=== PATIENT | female | born 1995 | race Caucasian/White ===

== ENCOUNTER 2021-02-07 18:28 | Outpatient (CLI) | payer OTHER ==
--- NOTE | 2021-02-07 23:04 | XRAY Report ---
PROCEDURE: Elbow 3 View LT INDICATIONS: LEFT ELBOW PAIN STATUS post skateboarding injury TECHNIQUE: 3 views of the elbow were acquired. COMPARISON: None FINDINGS: Bones: Slightly depressed radial head fracture noted associated with joint effusion and elevated ante rior humeral fat pad. Normal bone mineralization. Soft tissues: No suspicious soft tissue calcifications. IMPRESSION: Slightly depressed radial head fracture with associated joint effusion Reviewed by: Migeul Zapata MD on 02/07/2021 10:03 PM [facility] Approved by: Miguel Zapata MD on 02/07/2021 10:03 PM [facility] Station ID: [id number]
== END 2021-02-07 23:59 ==
LOC: DI.N 18:28
PROVIDERS: ATTEND Nurse Practitioner
DX: S52.122A Displaced fracture of head of left radius, initial encounter for closed fracture (principal)

== ENCOUNTER 2021-02-11 17:13 | Emergency (ER) | payer OTHER ==
--- NOTE | 2021-02-11 17:36 | ED Physician Documentation ---
PD HPI UPPER EXT INJURY - Stated complaint Stated Complaint: LT ELBOW INJ - Chief complaint Chief Complaint: Ext Problem - History obtained from History obtained from: Patient - History of Present Illness Location: Left, Elbow Type of injury: Fall Timing - details: Gradual onset Pain level max: 7 Pain level now: 6 - Additonal information Additional information: 25-year-old female presents to the emergency department with left elbow pain. She states in December she fell off of a skateboard and sustained a radial head fracture. Initially was placed in a sling and told to follow-up with orthopedics. She states later that week she was admitted for complications of her diabetes and placed into a splint. She saw orthopedics after this and was removed from the splint and started to use the arm. She is still having pain so went to the walk-in clinic last week who placed her back in a splint. She states continued pain today and unable to see orthopedics here. Patient is right-handed Review of Systems Constitutional: denies: Fever, Chills Respiratory: denies: Cough GI: denies: Nausea, Vomiting, Diarrhea Skin: denies: Rash Musculoskeletal: denies: Neck pain, Back pain Neurologic: denies: Headache PD PAST MEDICAL HISTORY - Past Medical History Past Medical History: Yes - Past Surgical History Past Surgical History: No - Present Medications Home Medications: Ambulatory Orders Medication Instructions Recorded Confirmed Oxycodone HCl/Acetaminophen 1 - 2 each PO Q6H PRN #14 tablet 02/11/21 [Percocet 5-325 mg Tablet] - Allergies Allergies/Adverse Reactions: Allergies Allergy/AdvReac Type Severity Reaction Status Date / Time No Known Drug Allergies Allergy Verified 02/11/21 17:17 - Living Situation Living Situation: reports: With family Living Arrangement: reports: At home PD ED PE NORMAL - Vitals Vital signs reviewed: Yes - General General: Alert and oriented X 3, No acute distress - HEENT HEENT: Moist mucous membranes - Neck Neck: Supple, no meningeal sign - Cardiac Cardiac: RRR, Strong equal pulses - Respiratory Respiratory: No respiratory distress, Clear bilaterally - Derm Derm: Warm and dry - Extremities Extremities: Other (L elbow - Tenderness to palpation over the left radial head. Limited extension of the elbow. Full supination and pronation of the hand. Neurovascular intact.) - Neuro Neuro: Alert and oriented X 3 Results - Vitals Vitals: Vital Signs - 24 hr 02/11/21 02/11/21 17:18 18:08 Temperature 36.2 C L Heart Rate 112 H 101 H Respiratory 16 18 Rate Blood Pressure 151/98 H 141/96 H O2 Saturation 99 97 Oxygen O2 Source Room air - Rads (name of study) L elbow xray Radiology: Final report received, EMP read contemporaneously, See rad report (Healing radial head fracture with improving joint effusion ) PD MEDICAL DECISION MAKING - ED course Complexity details: reviewed results, re-evaluated patient, considered differential, d/w patient, d/w communication consultant ED course: 25-year-old female with a healing left radial head fracture. The splinting material was removed. We will have her follow-up closely with orthopedics. Patient instructed on elbow movement and stretching exercises. Neurovascularly intact. Patient also had Lidoderm patches under the splint, these were also removed. Will prescribe a small amount of pain medication for home and have her follow-up with orthopedics. Discussed the case with Dr. Voss, orthopedics who will plan on seeing the patient next week in the office. Patient counseled regarding signs and symptoms for which I believe and urgent re-evaluation would be necessary. Patient with good understanding of and agreement to plan and is comfortable going home at this time This document was made in part using voice recognition software. While efforts are made to proofread this document, sound alike and grammatical errors may occur. Departure - Departure Disposition: 01 Home, Self Care Clinical Impression: Left radial head fracture Qualifiers: Encounter type: initial encounter Fracture type: closed Fracture alignment: displaced Qualified Code(s): S52.122A - Displaced fracture of head of left radius, initial encounter for closed fracture Condition: Good Instructions: ED Fx Radial Head Follow-Up: Kevin Voss MD [Provider Admit Priv/Credential] - Within 1 week Prescriptions: Oxycodone HCl/Acetaminophen [Percocet 5-325 mg Tablet] 1 - 2 each PO Q6H PRN #14 tablet PRN Reason: pain Comments: It is important that you follow-up with orthopedics as you may need physical therapy and need to ensure proper healing. Continue the stretches as we discussed tonight. Stay out of all slings and splints. We want you to use the arm as much as possible, do not lift over 5 pounds with the arm. Your prescriptions were sent to [facility] in [place]. I spoke with Dr. Voss from orthopedics [facility]. I am prescribing a short course of narcotic pain medication for you. These are potentially dangerous and addictive medications that should be used carefully. These medications may constipate you. Take an cvbv-[id number]-[id number] stool softener (docusate) twice daily with plenty of water while taking these medications. If you go 24 hours without a bowel movement, take vlut-elp-[id number] miralax, per package instructions. Do not drink or drive while taking these medications. If you received narcotic or sedating medications while in the emergency department, do not drive for 24 hours. Store this medication in a safe, secure place and out of reach of children. It is a violation of federal law to give or sell this medication to another person or to use in a manner other than prescribed. The ED will not refill narcotic prescriptions, including prescriptions lost or stolen. To dispose of unwanted medications: 1. [facility] at [address] in [place] has a medication drop box. They accept prescription medications (in pill form) Wednesday through Wednesday 9:00 a.m. to 5:00 p.m. 2. The [facility] [employer] accepts prescription medications (in pill form only) for disposal year round. Call for more information. 3. Contact the [facility] for the next [facility] sponsored prescription drug collection event. , [phone], or [phone]; Discharge Date/Time: 02/11/21 18:13
[2021-02-11] MEDS ORDERED: KETOROLAC 60 MG/2 ML VIAL IM STA (18:00)
[2021-02-11 18:12] VITALS: BP 141/96
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
== END 2021-02-11 18:13 | disposition home or self-care (01) ==
LOC: ED 17:13
DX: S52.122A Displaced fracture of head of left radius, initial encounter for closed fracture (principal); V00.131A Fall from skateboard, initial encounter; Y93.51 Activity, roller skating (inline) and skateboarding
CPT/HCPCS: 96372; 99283; 99284

== ENCOUNTER 2021-02-20 07:17 | Outpatient (CLI) | payer OTHER ==
--- NOTE | 2021-02-20 12:24 | XRAY Report ---
PROCEDURE: Elbow 3 View LT INDICATIONS: LEFT ELBOW PAIN TECHNIQUE: 3 views of the elbow were acquired. COMPARISON: 02/11/2021 FINDINGS: Unchanged alignment of the intra-articular radial head fracture. Joint spaces grossly preserved. Soft tissues unremarkable. No definite joint effusion. IMPRESSION: Unchanged alignment of radial head fracture. Reviewed by: Phil Anderson MD on 02/20/2021 12:22 PM PST Approved by: Phil Anderson MD on 02/20/2021 12:22 PM PST Station ID: [id number]
== END 2021-02-20 23:59 | disposition home or self-care (01) ==
LOC: DI.N 07:17
PROVIDERS: ATTEND Orthopaedic Surgery
DX: S52.125A Nondisplaced fracture of head of left radius, initial encounter for closed fracture (principal)

== ENCOUNTER 2021-03-23 18:40 | Emergency (ER) | payer OTHER ==
[2021-03-23] MEDS ORDERED: KETOROLAC 60 MG/2 ML VIAL IM STA (19:15)
--- NOTE | 2021-03-23 20:06 | ED Physician Documentation ---
History of Present Illness - Stated complaint Stated Complaint: L ELBOW PX - Chief complaint Chief Complaint: Ext Problem - Additonal information Additional information: 25-year-old female presents emergency department for evaluation of acute left arm pain. She sustained a left radial head fracture in late December. Was ultimately seen by orthopedics. She has been cleared to start physical therapy tomorrow. She reports that since starting to move her arm more she is having increased pain. She often has shooting pain from the mid humerus down to the forearm. She feels like her arm is cold and cool to the touch. She is taken Tylenol with minimal relief. Review of Systems Constitutional: reports: Reviewed and negative Ears: reports: Reviewed and negative Nose: reports: Reviewed and negative Throat: reports: Reviewed and negative Cardiac: reports: Reviewed and negative Respiratory: reports: Reviewed and negative GI: reports: Reviewed and negative : reports: Reviewed and negative Skin: reports: Reviewed and negative Musculoskeletal: reports: Extremity pain (Left arm) PD PAST MEDICAL HISTORY - Past Medical History Past Medical History: Yes Endocrine/Autoimmune: Type 1 diabetes Psych: Depression - Past Surgical History Past Surgical History: No - Present Medications Home Medications: Ambulatory Orders Medication Instructions Recorded Confirmed Bupropion HCl [Wellbutrin Xl] 300 mg PO DAILY 03/23/21 03/23/21 Fluoxetine HCl [Prozac] 40 mg PO DAILY 03/23/21 03/23/21 Ibuprofen [Motrin] 600 mg PO Q6H PRN #30 tab 03/23/21 Insulin Glargine [Lantus Solostar] 30 unit SQ HS 03/23/21 03/23/21 Insulin Lispro [Humalog Kwikpen 03/23/21 U-100] lamoTRIgine [Lamictal Xr] 100 mg PO DAILY 03/23/21 03/23/21 - Allergies Allergies/Adverse Reactions: Allergies Allergy/AdvReac Type Severity Reaction Status Date / Time No Known Drug Allergies Allergy Verified 02/11/21 17:17 - Social History Does the pt smoke?: No Smoking Status: Never smoker Does the pt drink ETOH?: No Does the pt have substance abuse?: No - Immunizations Immunizations are current?: No PD ED PE EXPANDED - General General: Alert, No acute distress, Well developed/nourished - Cardiac Cardiac: Regular Rate, Radial strong equal, Pedal strong equal, Cap refill < 2 sec - Respiratory Respiratory: Clear to ausultation chaitanya. No: Distress, Labored - Extremities Extremities: Left elbow (mild tenderness proximal radius, no swelling, ecchymosis. normal flexion/exteionsion. Increased pain with pronation and supination. Patient cannot fully supinate the hand. 2+ radial pulse. Warm hand. 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 She was diagnosed with a radial head fracture in December. Seen by orthopedics and will be starting physical therapy tomorrow. With increased movement of the arm she is having increased pain. We discussed that this is a natural progression. Given the lack of swelling or fevers or any new trauma deferred repeat imaging. 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 She was given Toradol which mildly improved the pain will be advised to use ibuprofen. Emergent return precautions were discussed Departure - Departure Disposition: 01 Home, Self Care Clinical Impression: Left arm pain Condition: Stable Record reviewed to determine appropriate education?: Yes Prescriptions: Ibuprofen [Motrin] 600 mg PO Q6H PRN #30 tab PRN Reason: Pain Comments: You are seen in the ER today for worsening pain in your left arm. You have been cleared to start physical therapy. I suspect that the cause of your pain is due to increased movement of the arm and using muscles and ligaments that have not been used in quite some time. This is common. I recommend that you ice the elbow for 10 minutes 3 times a day. Please take ibuprofen 600 mg with food 2 or 3 times a day to help with pain. If pain is worsening you may benefit from follow-up with orthopedics for reevaluation.
[2021-03-23 20:18] VITALS: BP 133/87
== END 2021-03-23 20:17 | disposition home or self-care (01) ==
LOC: ED 18:40
DX: M79.622 Pain in left upper arm (principal); M79.632 Pain in left forearm; S52.122D Displaced fracture of head of left radius, subsequent encounter for closed fracture with routine healing; X58.XXXD Exposure to other specified factors, subsequent encounter; E10.9 Type 1 diabetes mellitus without complications
CPT/HCPCS: 96372; 99283

== ENCOUNTER 2021-03-28 20:21 | Emergency (ER) | payer OTHER ==
[2021-03-28] MEDS ORDERED: KETOROLAC 30 MG/ML VIAL IM STA (21:00)
[2021-03-28] MEDS ORDERED: ACETAMINOPHEN 325 MG TABLET PO STA (21:00)
[2021-03-28] MEDS ORDERED: oxyCODONE 5 MG TABLET PO STA (21:00)
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
[2021-03-28] MEDS ORDERED: traMADol 50 MG TABLET PO STA (23:41)
[2021-03-29 00:17] VITALS: BP 128/87
== END 2021-03-29 00:18 | disposition home or self-care (01) ==
LOC: ED 20:21
DX: S13.4XXA Sprain of ligaments of cervical spine, initial encounter (principal); S00.81XA Abrasion of other part of head, initial encounter; V47.5XXA Car driver injured in collision with fixed or stationary object in traffic accident, initial encounter; Y92.9 Unspecified place or not applicable; M54.9 Dorsalgia, unspecified; M25.522 Pain in left elbow; M25.512 Pain in left shoulder; F41.9 Anxiety disorder, unspecified; F32.A Depression, unspecified; G89.29 Other chronic pain
CPT/HCPCS: 71046; 72040; 73030; 73070; 73090; 96372; 99284; A9270

== ENCOUNTER 2021-04-15 08:00 | Outpatient (CLI) | payer OTHER ==
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
== END 2021-04-15 23:59 ==
LOC: DI.N 08:00
PROVIDERS: ATTEND Nurse Practitioner
DX: M54.9 Dorsalgia, unspecified (principal)

== ENCOUNTER 2021-05-02 12:25 | Outpatient (CLI) | payer OTHER | END 2021-05-02 12:26 | disposition critical access hospital (66) | LOC: EMS 12:25 → MERGE 12:25 → EMS 12:26 | DX: R56.9 Unspecified convulsions (principal); E11.649 Type 2 diabetes mellitus with hypoglycemia without coma | CPT/HCPCS: A0425; A0427 ==

== ENCOUNTER 2021-05-02 12:50 | Emergency (ER) | payer OTHER ==
[2021-05-02 13:16] LABS: BASOPHILS # (AUTO) 0.1 10^3/uL (0.0-0.1); BASOPHILS % (AUTO) 0.9 %; EOSINOPHILS # (AUTO) 0.1 10^3/uL (0.0-0.7); EOSINOPHILS % (AUTO) 2.4 %; HCT - HEMATOCRIT 40.5 % (37.0-47.0); HGB - HEMOGLOBIN 13.7 g/dL (12.0-16.0); LYMPHOCYTES # (AUTO) 2.2 10^3/uL (1.5-3.5); LYMPHOCYTES % (AUTO) 37.8 %; MEAN CORPUSCULAR HEMOGLOBIN 30.6 pg (27.0-31.0); MEAN CORPUSCULAR HGB CONC 33.8 g/dL (32.0-36.0); MEAN CORPUSCULAR VOLUME 90.6 fL (81.0-99.0); MEAN PLATELET VOLUME 9.2 fL (7.9-10.8); MONOCYTES # (AUTO) 0.4 10^3/uL (0.0-1.0); MONOCYTES % (AUTO) 7.2 %; NEUTROPHILS # (AUTO) 2.9 10^3/uL (1.5-6.6); NEUTROPHILS % (AUTO) 51.4 %; PLT - PLATELET COUNT 366 10^3/uL (130-450); RED BLOOD COUNT 4.47 10^6/uL (4.20-5.40); RED CELL DISTRIBUTION WIDTH 12.6 % (12.0-15.0); WHITE BLOOD COUNT 5.7 x10^3/uL (4.8-10.8)
--- NOTE | 2021-05-02 13:21 | ED Physician Documentation ---
History of Present Illness - Stated complaint Stated Complaint: LOW BLOOD SUGAR - Chief complaint Chief Complaint: Neuro - History obtained from History obtained from: Patient - History of Present Illness Timing: Today Pain level max: 0 Pain level now: 0 - Additonal information Additional information: 25-year-old female presents to the emergency department complaint of hypoglycemia. She states that she excellently took her Lantus twice last night. She is a longstanding type I diabetic. Blood sugar was 25 this morning and had a seizure. Currently is asymptomatic. Received D50 with EMS. No recent illnesses or infection. No abdominal pain. Has chronic back pain. Takes oxycodone at home but did not take it this morning. Denies any possibility of . Review of Systems Constitutional: denies: Fever, Chills GI: denies: Vomiting, Diarrhea : denies: Now EGA Skin: denies: Rash Musculoskeletal: denies: Neck pain, Back pain PD PAST MEDICAL HISTORY - Past Medical History Past Medical History: Yes Endocrine/Autoimmune: Type 1 diabetes - Past Surgical History Past Surgical History: No - Allergies Allergies/Adverse Reactions: Allergies Allergy/AdvReac Type Severity Reaction Status Date / Time No Known Drug Allergies Allergy Verified 05/02/21 12:57 - Living Situation Living Situation: reports: With family Living Arrangement: reports: At home - Social History Does the pt have substance abuse?: No - Family History Family history: reports: Non contributory PD ED PE NORMAL - Vitals Vital signs reviewed: Yes - General General: Alert and oriented X 3, No acute distress, Well developed/nourished - HEENT HEENT: PERRL, Moist mucous membranes, Pharynx benign, Dentition benign - Neck Neck: Supple, no meningeal sign, No bony TTP, C-Spine cleared by NEXUS criteria - Cardiac Cardiac: RRR, No murmur, Strong equal pulses - Respiratory Respiratory: No respiratory distress, Clear bilaterally - Abdomen Abdomen: Soft, Non tender, Non distended - Back Back: No spinal TTP - Derm Derm: Warm and dry - Extremities Extremities: No edema, No calf tenderness / cord - Neuro Neuro: Alert and oriented X 3, survey operations director 2-12 intact, No motor deficit, No sensory deficit, Normal speech - Psych Psych: Normal mood, Normal affect Results - Vitals Vitals: Vital Signs - 24 hr 05/02/21 05/02/21 05/02/21 12:57 13:33 14:12 Temperature 36.8 C Heart Rate 86 90 85 Respiratory 19 15 16 Rate Blood Pressure 130/84 H 124/88 H 106/63 O2 Saturation 99 100 100 05/02/21 14:30 Temperature Heart Rate 90 Respiratory 11 L Rate Blood Pressure 103/70 O2 Saturation 100 Oxygen O2 Source Room air - Labs Labs: Laboratory Tests 05/02/21 05/02/21 05/02/21 12:59 13:13 13:13 WBC 5.7 RBC 4.47 Hgb 13.7 Hct 40.5 MCV 90.6 MCH 30.6 MCHC 33.8 RDW 12.6 Plt Count 366 MPV 9.2 Neut # (Auto) 2.9 Lymph # (Auto) 2.2 [place] # (Auto) 0.4 Eos # (Auto) 0.1 Baso # (Auto) 0.1 Absolute Nucleated RBC 0.00 Nucleated RBC % 0.0 Sodium 139 Potassium 3.5 Chloride 102 Carbon Dioxide 27 Anion Gap 10.0 BUN 9 Creatinine 0.7 Estimated GFR (MDRD) 102 Glucose 43 L* Calcium 9.7 Total Bilirubin 0.3 AST 20 ALT 14 Alkaline Phosphatase 65 Total Protein 7.0 Albumin 4.0 Globulin 3.0 Albumin/Globulin Ratio 1.3 Urine Color YELLOW Urine Clarity CLEAR Urine pH 6.5 Ur Specific [place] 1.010 Urine Protein NEGATIVE Urine Glucose (UA) NEGATIVE Urine Ketones NEGATIVE Urine Occult Blood NEGATIVE Urine Nitrite NEGATIVE Urine Bilirubin NEGATIVE Urine Urobilinogen 0.2 (NORMAL) Ur Leukocyte Esterase NEGATIVE Ur Microscopic Review NOT INDICATED Urine Culture Comments NOT INDICATED Urine HCG, Qual NEGATIVE PD MEDICAL DECISION MAKING - ED course Complexity details: reviewed results, re-evaluated patient, considered differential, d/w patient ED course: 25-year-old female with hypoglycemia. No significant lab abnormalities otherwise here. Eating and drinking without difficulty. Blood sugar remained elevated without recurrent hypoglycemia. She has someone to stay with her today and will monitor her blood sugar at home. She will follow up with her doctor for further care. Patient counseled regarding signs and symptoms for which I believe and urgent re-evaluation would be necessary. Patient with good understanding of and agreement to plan and is comfortable going home at this time This document was made in part using voice recognition software. While efforts are made to proofread this document, sound alike and grammatical errors may occur. Departure - Departure Disposition: Home, Self Care Clinical Impression: Hypoglycemia Condition: Good Instructions: ED Diabetes Hypoglycemia Insulin React Follow-Up: Donta Carver MD [Primary Care Provider] - Within 1 week Comments: Please follow-up with your doctor for further care. Return if you worsen. Make sure to continue to eat and drink regularly throughout the day and continue to check your blood sugars at home. Return if you worsen Discharge Date/Time: 05/02/21 14:58
[2021-05-02 13:30] LABS: BILIRUBIN,URINE NEGATIVE (NEGATIVE); GLUCOSE, URINE (UA) NEGATIVE (NEGATIVE); KETONES,URINE (UA) NEGATIVE (NEGATIVE); LEUKOCYTE ESTERASE, URINE NEGATIVE (NEGATIVE); NITRITE,URINE NEGATIVE (NEGATIVE); OCCULT BLOOD,URINE NEGATIVE (NEGATIVE); PH,URINE 6.5 PH (5.0-7.5); PROTEIN,URINE NEGATIVE (NEGATIVE); UROBILINOGEN,URINE 0.2 (NORMAL) E.U./dL (NORMAL)
[2021-05-02 13:33] LABS: CLARITY,URINE CLEAR (CLEAR); HCG UR QUAL NEGATIVE
[2021-05-02] MEDS ORDERED: oxyCODONE 5 MG TABLET PO STA (13:43)
[2021-05-02 14:23] LABS: ALBUMIN/GLOBULIN RATIO 1.3 (1.0-2.2); BILIRUBIN,TOTAL 0.3 mg/dL (0.2-1.0); CALCIUM 9.7 mg/dL (8.5-10.3); CREATININE 0.7 mg/dL (0.4-1.0); POTASSIUM 3.5 mmol/L (3.5-5.0)
[2021-05-02 14:51] VITALS: BP 103/70
== END 2021-05-02 14:58 | disposition home or self-care (01) ==
LOC: EDBD → ED 12:50 → MERGE 12:50 → ED 14:58
DX: E10.649 Type 1 diabetes mellitus with hypoglycemia without coma (principal); Z79.4 Long term (current) use of insulin; M54.9 Dorsalgia, unspecified; G89.29 Other chronic pain
CPT/HCPCS: 36415; 80053; 81003; 81025; 85025; 99283; A9270; 81001; 87086

== ENCOUNTER 2021-05-16 08:25 | Outpatient (CLI) | payer OTHER ==
--- NOTE | 2021-05-16 10:25 | Ultrasound Report ---
PROCEDURE: Head or Neck Soft Tissue INDICATIONS: CERVICAL MASS TECHNIQUE: Real time scanning was performed of the neck region of interest, with image documentation . COMPARISON: None. FINDINGS: Focused ultrasound examination of left lateral neck at patient's reported area of palpable lump shows normal-appearing lymph node measures 10 x 3 x 8 mm in size with normal fatty hilum. No melissa id mass or fluid collection is seen. IMPRESSION: Normal-appearing lymph node in left lateral neck soft tissue. No discrete soft tissue mass or fluid c ollection is seen. Reviewed by: Mark Ward MD on 05/16/2021 10:23 AM PST Approved by: Mark Ward MD on 05/16/2021 10:23 AM PST Station ID: [id number]
== END 2021-05-16 08:26 | disposition home or self-care (01) ==
LOC: DI 08:25
PROVIDERS: ATTEND Family Medicine
DX: R22.1 Localized swelling, mass and lump, neck (principal)

== ENCOUNTER 2021-05-23 11:04 | Emergency (ER) | payer OTHER ==
--- NOTE | 2021-05-23 11:53 | XRAY Report ---
PROCEDURE: Finger(s) LT INDICATIONS: Trauma TECHNIQUE: AP hand, 2 views of the first finger(s) acquired. COMPARISON: None FINDINGS: Bones: No fractures or dislocations. No suspicious bony lesions. Soft tissues: No suspicious soft tissue calcifications. IMPRESSION: No acute fracture. No osseous lesion. If symptoms and/or clinical suspicion for pathology continue, f urther assessment with repeat plain films, or advanced imaging (e.g., CT, MRI, or bone scan) is recom mended for further assessment. Reviewed by: Joanne Meeks MD on 05/23/2021 11:52 AM [facility] Approved by: Joanne Meeks MD on 05/23/2021 11:52 AM [facility] Station ID: [id number]
[2021-05-23] MEDS ORDERED: ACETAMINOPHEN 325 MG TABLET PO STA (12:17)
[2021-05-23] MEDS ORDERED: IBUPROFEN 600 MG TABLET PO STA (12:17)
--- NOTE | 2021-05-23 12:19 | ED Physician Documentation ---
PD HPI UPPER EXT INJURY - Stated complaint Stated Complaint: LT HAND INJ - Chief complaint Chief Complaint: Ext Problem - History obtained from History obtained from: Patient - Additonal information Additional information: 25-year-old woman with type 1 diabetes had a radial head fracture on the left in December last year. Last night was "roughhousing" with her friend and hurt her left thumb and reinjured the left elbow. Pain is severe at the MCP of the left thumb. No other new injuries. Review of Systems Constitutional: reports: Reviewed and negative Nose: reports: Reviewed and negative Throat: reports: Reviewed and negative Cardiac: reports: Reviewed and negative Respiratory: reports: Reviewed and negative PD PAST MEDICAL HISTORY - Past Medical History Endocrine/Autoimmune: Type 1 diabetes Psych: Depression - Past Surgical History Past Surgical History: No - Present Medications Home Medications: Ambulatory Orders Medication Instructions Recorded Confirmed Bupropion HCl [Wellbutrin Xl] 300 mg PO DAILY 03/23/21 03/29/21 Insulin Glargine [Lantus Solostar] 30 unit SQ HS 03/23/21 03/29/21 Insulin Lispro [Humalog Kwikpen 50 units SUBQ DAILY 03/23/21 03/29/21 U-100] lamoTRIgine [Lamictal Xr] 100 mg PO DAILY 03/23/21 03/29/21 Fluoxetine HCl [Prozac] 60 mg PO DAILY 03/28/21 03/29/21 Quetiapine Fumarate [Seroquel] 50 mg PO BID 03/28/21 03/29/21 HYDROcod/ACETAM 5/325 [Pine 5/325] 1 - 2 tab PO Q6H PRN #15 tablet 05/23/21 - Allergies Allergies/Adverse Reactions: Allergies Allergy/AdvReac Type Severity Reaction Status Date / Time No Known Drug Allergies Allergy Verified 05/23/21 11:06 - Social History Does the pt smoke?: No Smoking Status: Never smoker Does the pt drink ETOH?: No Does the pt have substance abuse?: No - Immunizations Immunizations are current?: No PD ED PE NORMAL - Vitals Vital signs reviewed: Yes - General General: Alert and oriented X 3, No acute distress - HEENT HEENT: PERRL, EOMI - Neck Neck: Supple, no meningeal sign, No bony TTP - Extremities Extremities: Other (Mild tenderness of the left radial head, unable to extend the elbow all the way. She is able to flex it completely. She is tender over the MCP of the left thumb without ligamentous laxity including use no UCL laxity. No deformity. No pain with axial loading. No snuffbox tenderness.) Results - Vitals Vitals: Vital Signs - 24 hr 05/23/21 05/23/21 11:06 13:45 Temperature 37.0 C Heart Rate 105 H 99 Respiratory 16 16 Rate Blood Pressure 121/83 H 118/76 O2 Saturation 98 100 Oxygen O2 Source Room air - Rads (name of study) X-ray of the left thumb is unremarkable, left elbow showing intra-articular radial head fracture Radiology: EMP read contemporaneously PD MEDICAL DECISION MAKING - ED course ED course: She was placed in a thumb spica splint, fiberglass on the left. She declined a sling as she already has 1. Departure - Departure Disposition: 01 Home, Self Care Clinical Impression: Radial head fracture Qualifiers: Encounter type: initial encounter Fracture type: closed Fracture alignment: nondisplaced Laterality: left Qualified Code(s): S52.125A - Nondisplaced fracture of head of left radius, initial encounter for closed fracture Thumb sprain Qualifiers: Encounter type: initial encounter Sprain of finger site: metacarpophalangeal joint Laterality: left Qualified Code(s): S63.642A - Sprain of metacarpophalangeal joint of left thumb, initial encounter Condition: Good Record reviewed to determine appropriate education?: Yes Instructions: ED Fx Radial Head, ED Sprain Hand Prescriptions: HYDROcod/ACETAM 5/325 [Pine 5/325] 1 - 2 tab PO Q6H PRN #15 tablet PRN Reason: Pain Comments: As discussed, the x-ray of your thumb looks okay, I think he just sprained that. The x-ray of your elbow does show a worsening of the radial head fracture again. Probably reasonable to follow-up with orthopedics again, [place]. Return for new or worsening symptoms. The sling and splint are as needed and can be removed when you feel they are no longer necessary. I am prescribing a short course of narcotic pain medication for you. These are potentially dangerous and addictive medications that should be used carefully. These medications may constipate you. Take an faal-pyj-ytneome stool softener (docusate) twice daily with plenty of water while taking these medications. If you go 24 hours without a bowel movement, take hocp-lja-frcedgb miralax, per package instructions. Do not drink or drive while taking these medications. If you received narcotic or sedating medications while in the emergency department, do not drive for 24 hours. Store this medication in a safe, secure place and out of reach of children. It is a violation of federal law to give or sell this medication to another person or to use in a manner other than prescribed. The ED will not refill narcotic prescriptions, including prescriptions lost or stolen. To dispose of unwanted medications: 1. [facility] at [address] in [place] has a medication drop box. They accept prescription medications (in pill form) Wednesday through Wednesday 9:00 a.m. to 5:00 p.m. 2. The [employer] accepts prescription medications (in pill form only) for disposal year round. Call for more information. 3. Contact the [facility] for the next [facility] sponsored prescription drug collection event. , [phone], or [phone]; Note that many narcotic pain relievers also contain Tylenol/acetaminophen. Please ensure that your total dose of acetaminophen from all sources does not exceed 3 g (3000 mg) per day. Discharge Date/Time: 05/23/21 13:47
[2021-05-23] MEDS ORDERED: KETOROLAC 60 MG/2 ML VIAL IM STA (12:34)
--- NOTE | 2021-05-23 13:31 | XRAY Report ---
PROCEDURE: Elbow 3 View LT INDICATIONS: elbow injury TECHNIQUE: 3 views of the elbow were acquired. COMPARISON: 02/20/2021 03/28/2021 FINDINGS: Bones: Cortical irregularity involving radial head extending to its articulation with capitellum is s een suggestive of a minimally displaced fracture. No suspicious bony lesions. Soft tissues: Small elbow joint effusion is likely present. No suspicious soft tissue calcifications . IMPRESSION: Suggestion of minimally displaced intra-articular fracture of radial head as above. Small joint effus ion. No dislocation. Reviewed by: Mark Ward MD on 05/23/2021 1:29 PM PST Approved by: Mark Ward MD on 05/23/2021 1:29 PM PST Station ID: [id number]
[2021-05-23 14:42] VITALS: BP 118/76
== END 2021-05-23 13:47 | disposition home or self-care (01) ==
LOC: ED 11:04
DX: S52.125A Nondisplaced fracture of head of left radius, initial encounter for closed fracture (principal); S63.642A Sprain of metacarpophalangeal joint of left thumb, initial encounter; X58.XXXA Exposure to other specified factors, initial encounter; Y93.83 Activity, rough housing and horseplay; E10.9 Type 1 diabetes mellitus without complications; Z79.4 Long term (current) use of insulin
CPT/HCPCS: 73080; 73140; 96372; 99283; 99284; A9270

== ENCOUNTER 2021-11-29 10:08 | Outpatient (CLI) | payer OTHER | END 2021-11-29 10:09 | disposition left against medical advice (07) | LOC: EMS 10:08 | DX: E11.649 Type 2 diabetes mellitus with hypoglycemia without coma (principal); Z79.4 Long term (current) use of insulin ==

== ENCOUNTER 2021-12-21 19:52 | Emergency (ER) | payer OTHER ==
--- NOTE | 2021-12-21 20:32 | ED Physician Documentation ---
PD HPI Fall - Stated complaint Stated Complaint: FALL - Chief complaint Chief Complaint: Trauma Ext - History obtained from History obtained from: Patient - History of Present Illness Mechanism of injury: Slipped (she was lying her back on foam roller for exercise and holding herslf with wrists and arms when the roller slid and she twisted wrist under her and twisted/banged elbow. Pain in both continues after several days. 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 No: Tripped Fall distance: Other (crab crawl type position on the floor) Where injury occurred: Home Timing - onset: How many days ago (4) Injury(ies) location: Left Uppper Extremity (lateral elbow), Left Hand (wrist) Quality of pain: Pain, Aching Associated symptoms: No: LOC, AMS, Weakness, Paresthesias Worsens with: Movement (elbow hurts mostly with supination and staff assistant. Wrist with staff assistant and hyperextension.), Palpation Similar symptoms before: Has not had sx before Review of Systems Constitutional: denies: Fever, Chills Skin: denies: Rash, Abrasion (s), Laceration (s) Musculoskeletal: denies: Neck pain, Back pain Neurologic: denies: Focal weakness, Numbness PD PAST MEDICAL HISTORY - Past Medical History Endocrine/Autoimmune: Type 1 diabetes Psych: Depression - Past Surgical History Past Surgical History: No - Present Medications Home Medications: Ambulatory Orders Medication Instructions Recorded Confirmed Bupropion HCl [Wellbutrin Xl] 300 mg PO DAILY 03/23/21 03/29/21 Insulin Glargine [Lantus Solostar] 30 unit SQ HS 03/23/21 03/29/21 Insulin Lispro [Humalog Kwikpen 50 units SUBQ DAILY 03/23/21 03/29/21 U-100] lamoTRIgine [Lamictal Xr] 100 mg PO DAILY 03/23/21 03/29/21 Fluoxetine HCl [Prozac] 60 mg PO DAILY 03/28/21 03/29/21 Quetiapine Fumarate [Seroquel] 50 mg PO BID 03/28/21 03/29/21 HYDROcod/ACETAM 5/325 [Slovan 5/325] 1 - 2 tab PO Q6H PRN #15 tablet 05/23/21 HYDROcod/ACETAM 5/325 [Slovan 5/325] 1 ea PO Q6H PRN #15 tablet 12/21/21 Meloxicam [Mobic] 7.5 mg PO BID 10 Days #15 tablet 12/21/21 - Allergies Allergies/Adverse Reactions: Allergies Allergy/AdvReac Type Severity Reaction Status Date / Time No Known Drug Allergies Allergy Verified 12/21/21 20:00 - Social History Does the pt smoke?: No Smoking Status: Never smoker Does the pt drink ETOH?: No Does the pt have substance abuse?: No - Immunizations Immunizations are current?: No PD ED PE NORMAL - Vitals Vital signs reviewed: Yes - General General: Alert and oriented X 3, No acute distress, Well developed/nourished - Derm Derm: Normal color, Warm and dry - Extremities Extremities: Other (left lateral elbow tender lateral condyle to palpation. No redness. Elbow without effusion. Left wrist with ) - Neuro Neuro: Alert and oriented X 3, No motor deficit, No sensory deficit Results - Vitals Vitals: Vital Signs - 24 hr 12/21/21 12/21/21 19:57 21:39 Temperature 36.7 C Heart Rate 96 90 Respiratory 16 18 Rate Blood Pressure 127/72 125/68 O2 Saturation 100 98 Oxygen O2 Source Room air - Rads (name of study) elbow xray Radiology: Prelim report reviewed (no fractures), See rad report wrist xray Radiology: Prelim report reviewed (no fractures), See rad report PD MEDICAL DECISION MAKING - ED course Complexity details: re-evaluated patient (injection around lateral condyle with bupivocaine for comfort. ), considered differential (epicondylitis at lateral elbow and ulnar side wrist sprain. ), d/w patient Departure - Departure Disposition: 01 Home, Self Care Clinical Impression: Elbow tendonitis Left wrist sprain Qualifiers: Encounter type: initial encounter Qualified Code(s): S63.502A - Unspecified sprain of left wrist, initial encounter Condition: Stable Record reviewed to determine appropriate education?: Yes Instructions: ED Epicondylitis Lateral Elbow, ED Sprain Wrist Follow-Up: Torrey Punete DO [Primary Care Provider] - Prescriptions: Meloxicam [Mobic] 7.5 mg PO BID 10 Days #15 tablet HYDROcod/ACETAM 5/325 [Slovan 5/325] 1 ea PO Q6H PRN #15 tablet PRN Reason: Pain Comments: Your x-rays are good so no bony abnormalities. However it does seem like you have a sprain of the wrist and some tendinitis of the elbow. Use the wrist brace and sling for decreased motion for the next 4 to 5 days. Light to no use of that arm during that time. On anti-inflammatory of meloxicam twice daily for the next week with food. To that add Tylenol every 4-6 hours if needed for hydrocodone if needed for worse pain. I sent your prescription to [facility] pharmacy in [place]. Recheck if not improved well over the next several days and resolved over 4 to 5 days. I am prescribing a short course of narcotic pain medication for you. These are potentially dangerous and addictive medications that should be used carefully. These medications may constipate you. Take an oryc-rkb-lpnbrru stool softener such as docusate twice daily with plenty of water while taking these medications. If you go 24 hours without a bowel movement, take hylk-rjx-bmarvok MiraLAX, per package instructions. Do not drink or drive while taking these medications. If you received narcotic or sedating medications while in the emergency department do not drive for 24 hours. Store this medication in a safe, secure place and out of reach of children. It is a violation of federal law to give or sell this medication to another person or to use in a manner other than prescribed. The ED will not refill narcotic prescriptions, including prescriptions lost or stolen. You can dispose of unwanted medications at the [facility]'s office or at several pharmacies such as [facility]. Forms: Activity restrictions Discharge Date/Time: 12/21/21 21:39
[2021-12-21] MEDS ORDERED: TRIAMCINOLONE 40 MG/ML VIAL IM STA (20:45)
[2021-12-21] MEDS ORDERED: IBUPROFEN 600 MG TABLET PO STA (20:45)
[2021-12-21] MEDS ORDERED: HYDROcod/ACETAM 5/325 MG TABLET PO STA (20:45)
[2021-12-21 21:39] VITALS: BP 125/68
--- NOTE | 2021-12-21 21:44 | XRAY Report ---
PROCEDURE: Elbow 3 View LT INDICATIONS: injury/fall, c/o pain TECHNIQUE: 3 views of the elbow were acquired. COMPARISON: Left elbow x-ray 05/23/2021 FINDINGS: Bones: There is mild deformity of the radial head likely corresponding to sequelae of the previously demonstrated radial head fracture. Elsewhere, no definite acute fracture or dislocation. No suspicio us bony lesions. Soft tissues: No elbow joint effusion. No suspicious soft tissue calcifications. IMPRESSION: 1. Deformity of the radial head likely represents chronic changes related to the previously identifie d fracture in the absence of an associated joint effusion. Reviewed by: Omar Martinez MD on 12/21/2021 9:42 PM PDT Approved by: Omar Martinez MD on 12/21/2021 9:42 PM PDT Station ID: [id number]
--- NOTE | 2021-12-21 21:45 | XRAY Report ---
PROCEDURE: Wrist 3 View LT INDICATIONS: injury/fall, c/o pain TECHNIQUE: 3 views of the wrist were acquired. COMPARISON: None. FINDINGS: Bones: No fractures or dislocations. No suspicious bony lesions. Soft tissues: No suspicious soft tissue calcifications. IMPRESSION: 1. No fracture or dislocation. Reviewed by: Omar Martinez MD on 12/21/2021 9:44 PM PDT Approved by: Omar Martinez MD on 12/21/2021 9:44 PM PDT Station ID: [id number]
== END 2021-12-21 21:39 | disposition home or self-care (01) ==
LOC: ED 19:52
DX: S62.502A Fracture of unspecified phalanx of left thumb, initial encounter for closed fracture (principal); W01.0XXA Fall on same level from slipping, tripping and stumbling without subsequent striking against object, initial encounter; Y93.B9 Activity, other involving muscle strengthening exercises; Y92.009 Unspecified place in unspecified non-institutional (private) residence as the place of occurrence of the external cause; M77.8 Other enthesopathies, not elsewhere classified; E10.9 Type 1 diabetes mellitus without complications
CPT/HCPCS: 73080; 73110; 99283; A9270

== ENCOUNTER 2022-02-20 11:43 | Outpatient (CLI) | payer OTHER ==
--- NOTE | 2022-02-20 17:08 | XRAY Report ---
PROCEDURE: Chest 2 View X-Ray INDICATIONS: ACUTE BRONCHITIS TECHNIQUE: 2 views of the chest were acquired. COMPARISON: 03/28/2021 FINDINGS: Surgical changes and devices: None. Lungs and pleura: No pleural effusions or pneumothorax. Increased bronchovascular markings in bilate ral hilar region are seen with mild bronchial wall thickening. No definite focal infiltrate. Mediastinum: Mediastinal contours are normal. Heart size is normal. Bones and chest wall: No suspicious bony abnormalities. Soft tissues appear unremarkable. IMPRESSION: Finding is consistent with reactive airway disease. No focal infiltrate, pleural effusion or pneumoth orax. Reviewed by: Mark Ward MD on 02/20/2022 5:07 PM PST Approved by: Mark Ward MD on 02/20/2022 5:07 PM PST Station ID: [id number]
== END 2022-02-20 11:44 | disposition home or self-care (01) ==
LOC: DI 11:43
PROVIDERS: ATTEND Family Medicine
DX: J20.9 Acute bronchitis, unspecified (principal)

== ENCOUNTER 2022-05-19 13:00 | Outpatient (CLI) | payer OTHER, MEDICAID ==
[2022-05-19 18:00] LABS: BASOPHILS # (AUTO) 0.1 10^3/uL (0.0-0.1); BASOPHILS % (AUTO) 0.7 %; EOSINOPHILS % (AUTO) 0.3 %; HCT - HEMATOCRIT 40.2 % (37.0-47.0); HGB - HEMOGLOBIN 13.5 g/dL (12.0-16.0); LYMPHOCYTES # (AUTO) 2.1 10^3/uL (1.5-3.5); LYMPHOCYTES % (AUTO) 22.4 %; MEAN CORPUSCULAR HEMOGLOBIN 29.9 pg (27.0-31.0); MEAN CORPUSCULAR HGB CONC 33.6 g/dL (32.0-36.0); MEAN CORPUSCULAR VOLUME 89.1 fL (81.0-99.0); MEAN PLATELET VOLUME 9.6 fL (7.9-10.8); MONOCYTES # (AUTO) 0.5 10^3/uL (0.0-1.0); MONOCYTES % (AUTO) 5.1 %; NEUTROPHILS # (AUTO) 6.7 10^3/uL (1.5-6.6); NEUTROPHILS % (AUTO) 71.3 %; PLT - PLATELET COUNT 409 10^3/uL (130-450); RED BLOOD COUNT 4.51 10^6/uL (4.20-5.40); RED CELL DISTRIBUTION WIDTH 12.3 % (12.0-15.0); WHITE BLOOD COUNT 9.4 x10^3/uL (4.8-10.8)
[2022-05-19 18:35] LABS: CALCIUM 10.4 mg/dL (8.5-10.3); CREATININE 0.7 mg/dL (0.4-1.0); POTASSIUM 3.7 mmol/L (3.5-5.0)
[2022-05-19 20:38] LABS: ESTIMATED AVERAGE GLUCOSE 237 mg/dL (70-100); HEMOGLOBIN A1c% 9.9 % (4.27-6.07)
== END 2022-05-19 13:15 | disposition home or self-care (01) ==
LOC: LAB.N 13:00
PROVIDERS: ATTEND Physician Assistant Medical
DX: R00.0 Tachycardia, unspecified (principal)
CPT/HCPCS: 36415; 80048; 83036; 84443; 85025

== ENCOUNTER 2022-06-30 10:45 | Outpatient (CLI) | payer OTHER, MEDICAID ==
[2022-06-30 17:53] LABS: ALBUMIN 4.4 g/dL (3.2-5.5); ALBUMIN/GLOBULIN RATIO 1.3 (1.0-2.2); BILIRUBIN,TOTAL 0.8 mg/dL (0.2-1.0); CALCIUM 9.6 mg/dL (8.5-10.3); CREATININE 0.7 mg/dL (0.4-1.0); POTASSIUM 4.8 mmol/L (3.5-5.0); TOTAL PROTEIN 7.7 g/dL (6.7-8.2)
[2022-06-30 17:57] LABS: BASOPHILS # (AUTO) 0.1 10^3/uL (0.0-0.1); BASOPHILS % (AUTO) 0.6 %; EOSINOPHILS % (AUTO) 0.1 %; HCT - HEMATOCRIT 38.7 % (37.0-47.0); HGB - HEMOGLOBIN 13.2 g/dL (12.0-16.0); LYMPHOCYTES # (AUTO) 0.9 10^3/uL (1.5-3.5); LYMPHOCYTES % (AUTO) 10.6 %; MEAN CORPUSCULAR HEMOGLOBIN 30.4 pg (27.0-31.0); MEAN CORPUSCULAR HGB CONC 34.1 g/dL (32.0-36.0); MEAN CORPUSCULAR VOLUME 89.2 fL (81.0-99.0); MONOCYTES # (AUTO) 0.2 10^3/uL (0.0-1.0); MONOCYTES % (AUTO) 2.5 %; NEUTROPHILS # (AUTO) 6.9 10^3/uL (1.5-6.6); NEUTROPHILS % (AUTO) 85.7 %; PLT - PLATELET COUNT 384 10^3/uL (130-450); RED BLOOD COUNT 4.34 10^6/uL (4.20-5.40); RED CELL DISTRIBUTION WIDTH 12.1 % (12.0-15.0); WHITE BLOOD COUNT 8.1 x10^3/uL (4.8-10.8)
[2022-06-30 18:12] LABS: THYROID STIMULATING HORMONE 0.34 uIU/mL (0.34-5.60)
[2022-06-30 18:14] LABS: FREE T3 3.38 pg/mL (2.5-3.9); FREE T4 (FREE THYROXINE) 0.95 ng/dL (0.58-1.64)
== END 2022-06-30 11:00 | disposition home or self-care (01) ==
LOC: LAB.N 10:45
PROVIDERS: ATTEND Registered Nurse
DX: R11.2 Nausea with vomiting, unspecified (principal); R00.0 Tachycardia, unspecified
CPT/HCPCS: 36415; 80053; 83690; 84439; 84443; 84481; 85025

== ENCOUNTER 2022-08-22 21:49 | Emergency (ER) | payer OTHER, MEDICAID ==
--- NOTE | 2022-08-22 23:01 | XRAY Report ---
PROCEDURE: Shoulder 3 View RT INDICATIONS: pain TECHNIQUE: 3 views of the shoulder were acquired. COMPARISON: None. FINDINGS: Bones: No fractures or dislocations. No suspicious bony lesions. Visualized ribs appear intact. Soft tissues: No suspicious soft tissue calcifications. IMPRESSION: No osseous trauma or malalignment found. Reviewed by: Rajiv Banda MD on 08/22/2022 10:59 PM PDT Approved by: Rajiv Banda MD on 08/22/2022 10:59 PM PDT Station ID: [id number]
[2022-08-22] MEDS ORDERED: KETOROLAC 60 MG/2 ML VIAL IM STA (23:10)
[2022-08-22] MEDS ORDERED: LIDOCAINE PATCH 5% TOP STA (23:10)
--- NOTE | 2022-08-22 23:13 | ED Physician Documentation ---
PD HPI UPPER EXT INJURY - Stated complaint Stated Complaint: R SHOULDER PX - Chief complaint Chief Complaint: Ext Problem - History obtained from History obtained from: Patient - Additonal information Additional information: Patient is a 27-year-old female presenting for evaluation of right shoulder pain since yesterday. Patient states that she jumped a pheasants yesterday and thinks she may have injured it Then. She reports pain since that time with certain ranges of motion. She reports having rotator cuff injuries to bilateral shoulders but has never required surgery. She does not take a blood thinner. Denies injuries elsewhere. 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 She has not taken any medications yet for her symptoms. Review of Systems Constitutional: denies: Fever Cardiac: denies: Chest pain / pressure Respiratory: denies: Dyspnea GI: denies: Abdominal Pain Musculoskeletal: reports: Joint pain Neurologic: denies: Head injury PD PAST MEDICAL HISTORY - Past Medical History Past Medical History: Yes Endocrine/Autoimmune: Type 1 diabetes Psych: Depression, Anxiety Musculoskeletal: Fibromyalgia, Scoliosis - Past Surgical History Past Surgical History: No - Present Medications Home Medications: Ambulatory Orders Medication Instructions Recorded Confirmed Insulin Glargine [Lantus Solostar] 30 unit SQ HS 03/23/21 03/29/21 Insulin Lispro [Humalog Kwikpen 50 units SUBQ DAILY 03/23/21 03/29/21 U-100] buPROPion HCL [Wellbutrin Xl] 300 mg PO DAILY 03/23/21 03/29/21 lamoTRIgine [Lamictal Xr] 100 mg PO DAILY 03/23/21 03/29/21 Fluoxetine HCl [Prozac] 60 mg PO DAILY 03/28/21 03/29/21 Quetiapine Fumarate [Seroquel] 50 mg PO BID 03/28/21 03/29/21 HYDROcod/ACETAM 5/325 [[place] 5/325] 1 - 2 tab PO Q6H PRN #15 tablet 05/23/21 HYDROcod/ACETAM 5/325 [[place] 5/325] 1 ea PO Q6H PRN #15 tablet 12/21/21 Meloxicam [Mobic] 7.5 mg PO BID 10 Days #15 tablet 12/21/21 - Allergies Allergies/Adverse Reactions: Allergies Allergy/AdvReac Type Severity Reaction Status Date / Time No Known Drug Allergies Allergy Verified 03/22/22 22:23 - Social History Does the pt smoke?: No Smoking Status: Never smoker Does the pt drink ETOH?: No Does the pt have substance abuse?: No - Immunizations Immunizations are current?: No - POLST Patient has POLST: No PD ED PE NORMAL - General General: Alert and oriented X 3, No acute distress, Well developed/nourished - HEENT HEENT: Atraumatic - Neck Neck: Supple, no meningeal sign, No bony TTP - Cardiac Cardiac: Strong equal pulses - Respiratory Respiratory: No respiratory distress - Derm Derm: Warm and dry - Extremities Extremities: No deformity, No tenderness to palpate, Other (Pain om ROM particularly with abduction and extension, able to touch left shoulder with right hand; Motor and sensation intact, normal range of motion at right elbow with no tenderness) Results - Vitals Vitals: Vital Signs - 24 hr 08/22/22 08/22/22 22:06 23:22 Temperature 36.8 C Heart Rate 91 87 Respiratory 18 19 Rate Blood Pressure 145/83 H 140/82 H O2 Saturation 95 100 Oxygen O2 Source Room air PD Medical Decision Making - ED course Complexity details: reviewed results, d/w patient ED course: Patient presenting for evaluation of right shoulder pain after hyperextending it while jumping a fence yesterday. She has no deformities noted on exam. Neurovascularly intact. X-ray was obtained which I reviewed and I see no fracture or dislocation. Patient was provided with a sling but understands she needs to range of motion the arm.She was counseled on continued supportive care as well as need for close follow-up with PCP if symptoms or not improving.Patient advised on return precautions. Departure - Departure Disposition: 01 Home, Self Care Clinical Impression: Right shoulder strain Condition: Stable Instructions: ED Shoulder Pain [facility] Follow-Up: Torrey Puente DO [Primary Care Provider] - Comments: Your shoulder x-ray does not show a broken or out of place bone. However you could have injury to muscles or ligaments in the shoulder joint. Please continue with rest, anti-inflammatories such as ibuprofen or acetaminophen, ice and close follow-up with your PCP. Forms: Activity restrictions Discharge Date/Time: 08/22/22 23:22
[2022-08-22 23:24] VITALS: BP 140/82
== END 2022-08-22 23:22 | disposition home or self-care (01) ==
LOC: ED 21:49
DX: S46.911A Strain of unspecified muscle, fascia and tendon at shoulder and upper arm level, right arm, initial encounter (principal); X50.9XXA Other and unspecified overexertion or strenuous movements or postures, initial encounter; Y93.39 Activity, other involving climbing, rappelling and jumping off
CPT/HCPCS: 73030; 96372; 99283; A9270

== ENCOUNTER 2022-10-26 14:30 | Outpatient (CLI) | payer OTHER, MEDICAID ==
[2022-10-26 18:17] LABS: BASOPHILS # (AUTO) 0.1 10^3/uL (0.0-0.1); BASOPHILS % (AUTO) 0.5 %; HCT - HEMATOCRIT 41.9 % (37.0-47.0); HGB - HEMOGLOBIN 14.4 g/dL (12.0-16.0); LYMPHOCYTES # (AUTO) 1.2 10^3/uL (1.5-3.5); LYMPHOCYTES % (AUTO) 7.1 %; MEAN CORPUSCULAR HGB CONC 34.4 g/dL (32.0-36.0); MEAN CORPUSCULAR VOLUME 87.3 fL (81.0-99.0); MEAN PLATELET VOLUME 9.7 fL (7.9-10.8); MONOCYTES # (AUTO) 0.4 10^3/uL (0.0-1.0); MONOCYTES % (AUTO) 2.1 %; NEUTROPHILS # (AUTO) 15.6 10^3/uL (1.5-6.6); NEUTROPHILS % (AUTO) 89.8 %; PLT - PLATELET COUNT 451 10^3/uL (130-450); RED CELL DISTRIBUTION WIDTH 11.8 % (12.0-15.0); WHITE BLOOD COUNT 17.3 x10^3/uL (4.8-10.8)
[2022-10-26 18:36] LABS: CALCIUM 10.3 mg/dL (8.5-10.3); CREATININE 0.8 mg/dL (0.6-1.3); POTASSIUM 4.9 mmol/L (3.5-4.5)
[2022-10-26 18:43] LABS: ESTIMATED AVERAGE GLUCOSE 200 mg/dL (70-100); HEMOGLOBIN A1c% 8.6 % (4.27-6.07)
== END 2022-10-26 14:45 | disposition home or self-care (01) ==
LOC: LAB.N 14:30
PROVIDERS: ATTEND Physician Assistant Medical
DX: R19.7 Diarrhea, unspecified (principal)
CPT/HCPCS: 36415; 80048; 83036; 85025

== ENCOUNTER 2022-10-26 22:48 | Inpatient (IN) | payer OTHER, MEDICAID ==
[2022-10-26] MEDS ORDERED: ONDANSETRON 4 MG/2 ML VIAL IVP STA (23:09)
[2022-10-26] MEDS ORDERED: SODIUM CHLORIDE 0.9% 1,000 ML IV STA (23:09)
[2022-10-26 23:18] LABS: BASOPHILS # (AUTO) 0.1 10^3/uL (0.0-0.1); BASOPHILS % (AUTO) 0.5 %; HCT - HEMATOCRIT 42.1 % (37.0-47.0); HGB - HEMOGLOBIN 13.7 g/dL (12.0-16.0); LYMPHOCYTES # (AUTO) 1.9 10^3/uL (1.5-3.5); LYMPHOCYTES % (AUTO) 9.6 %; MEAN CORPUSCULAR HEMOGLOBIN 29.8 pg (27.0-31.0); MEAN CORPUSCULAR HGB CONC 32.5 g/dL (32.0-36.0); MEAN CORPUSCULAR VOLUME 91.5 fL (81.0-99.0); MEAN PLATELET VOLUME 9.8 fL (7.9-10.8); NEUTROPHILS # (AUTO) 16.1 10^3/uL (1.5-6.6); NEUTROPHILS % (AUTO) 83.2 %; PLT - PLATELET COUNT 459 10^3/uL (130-450); RED CELL DISTRIBUTION WIDTH 11.9 % (12.0-15.0); WHITE BLOOD COUNT 19.3 x10^3/uL (4.8-10.8)
[2022-10-26 23:53] LABS: ALBUMIN 4.8 g/dL (3.2-5.5)
[2022-10-27 00:12] LABS: ALBUMIN/GLOBULIN RATIO 1.5 (1.0-2.2); ALT ALANINE AMINOTRANSFERASE 15 IU/L (10-60); AST ASPARTATE AMINOTRANSFERASE 13 IU/L (10-42); BILIRUBIN,TOTAL 1.2 mg/dL (0.2-1.0); CHLORIDE 87 mmol/L (101-111); CREATININE 1.2 mg/dL (0.6-1.3); GFR - MDRD 54 (>89); POTASSIUM 5.8 mmol/L (3.5-4.5); SODIUM 123 mmol/L (135-145); TOTAL PROTEIN 8.1 g/dL (6.4-8.9)
[2022-10-27 00:13] LABS: CARBON DIOXIDE - CO2 12 mmol/L (21-32); GLUCOSE 803 mg/dL (74-104); LIPASE 3 U/L (11-82)
[2022-10-27 00:20] LABS: ALKALINE PHOSPHATASE 94 IU/L (42-121); BUN - BLOOD UREA NITROGEN 30 mg/dL (6-20); KETONES, SERUM (ACETEST) SMALL (NEGATIVE)
[2022-10-27] MEDS ORDERED: INSULIN REGULAR IN 0.9 % NS 100 UNIT/100 ML BAG IV STA (00:21)
[2022-10-27] MEDS ORDERED: SODIUM CHLORIDE 0.9% 1,000 ML IV STA (00:21)
[2022-10-27 01:01] LABS: ABG BASE EXCESS -11.1 mmol/L (-2.0-3.0); ABG HCO3 14.1 mmol/L (22.0-26.0); ABG OXYGEN SATURATION 93 % (94-98); ABG PCO2 30 mmHg (34-45); ABG PH 7.29 (7.35-7.45); ABG PO2 73 mmHg (80-100); ABG TCO2 15.1 MMOL/L (21.0-29.0); ALLEN TEST POSITIVE
--- NOTE | 2022-10-27 01:26 | ED Physician Documentation ---
History of Present Illness - Stated complaint Stated Complaint: HIGH BLOOD SUGAR - Chief complaint Chief Complaint: General - History obtained from History obtained from: Patient - Additonal information Additional information: The patient comes to the emergency department with chief complaint of vomiting for the last few days and not able to hold anything down. She states that she feels as though she has been sick with something for nearly the last week, but has been busy with her child and does not feel like she has been able to really take care of herself. She has been drinking any fluids because she cannot hold them down and she states she just feels like she is getting sicker. She has had DKA before and feels like she is "headed in that direction". She states that today, she just felt very weak and tired. No diarrhea. No respiratory symptoms. No fevers. No other complaints at this time. The patient is a type I diabetic. PD PAST MEDICAL HISTORY - Past Medical History Endocrine/Autoimmune: Type 1 diabetes Psych: Depression, Anxiety Musculoskeletal: Fibromyalgia, Scoliosis - Past Surgical History Past Surgical History: No - Present Medications Home Medications: Ambulatory Orders Medication Instructions Recorded Confirmed Insulin Glargine [Lantus Solostar] 40 unit SQ HS 03/23/21 10/27/22 Insulin Lispro [Humalog Kwikpen 80 units SUBQ DAILY 03/23/21 10/27/22 U-100] Cholecalciferol [Vitamin D3] 1 tab PO DAILY 10/27/22 10/27/22 Cranberry Fruit Extract [Cranberry] 1 tab PO DAILY 10/27/22 10/27/22 Cyanocobalamin (Vitamin B-12) 1 tab PO DAILY 10/27/22 10/27/22 [Vitamin B-12] Glucosamine HCl/Chondroitin Alvarez 1 tab PO DAILY 10/27/22 10/27/22 [Glucosamine-Chondroitin Cap] Guanfacine HCl [Intuniv] 1 tab PO HS 10/27/22 10/27/22 Multivitamin W/Minerals [Theragran 1 tab PO DAILY 10/27/22 10/27/22 M] Panax, [place] Ginsg/B12/Royl 1 cap PO DAILY 10/27/22 10/27/22 [Ginseng Complex Capsule] Pyridoxine HCl (Vitamin B6) 1 tab PO DAILY 10/27/22 10/27/22 [Pyridoxine HCl] Sumatriptan Succinate [Imitrex] 1 tab PO DAILY PRN MDD 200 10/27/22 10/27/22 clonazePAM [Clonazepam] 1 tab PO QID PRN 10/27/22 10/27/22 hydrOXYzine HCL [Hydroxyzine HCl] 1 tab PO DAILY PRN 10/27/22 10/27/22 traMADol [Ultram] 1 tab PO QID PRN 10/27/22 10/27/22 - Allergies Allergies/Adverse Reactions: Allergies Allergy/AdvReac Type Severity Reaction Status Date / Time No Known Drug Allergies Allergy Verified 10/26/22 22:58 - Social History Does the pt smoke?: No Smoking Status: Never smoker Does the pt drink ETOH?: No Does the pt have substance abuse?: No - Immunizations Immunizations are current?: No - POLST Patient has POLST: No PD ED PE NORMAL - Vitals Vital signs reviewed: Yes - General General: Alert and oriented X 3, No acute distress, Well developed/nourished, Other (The patient appears moderately ill but nontoxic.) - HEENT HEENT: Atraumatic, PERRL, EOMI, Moist mucous membranes - Neck Neck: Supple, no meningeal sign - Cardiac Cardiac: RRR, No murmur - Respiratory Respiratory: No respiratory distress, Clear bilaterally - Abdomen Abdomen: Soft, Non tender, Non distended - Derm Derm: Normal color, Warm and dry, No rash - Extremities Extremities: No deformity, No edema - Neuro Neuro: Alert and oriented X 3, Other (Grossly intact) - Psych Psych: Normal mood, Normal affect Results - Vitals Vitals: Vital Signs - 24 hr 10/27/22 02:38 Heart Rate 82 Respiratory 17 Rate Blood Pressure 90/49 L O2 Saturation 95 Oxygen O2 Source Room air - Labs Labs: Laboratory Tests 10/26/22 10/26/22 10/27/22 23:12 23:12 00:50 WBC 19.3 H RBC 4.60 Hgb 13.7 Hct 42.1 MCV 91.5 MCH 29.8 MCHC 32.5 RDW 11.9 L Plt Count 459 H MPV 9.8 Neut # (Auto) 16.1 H Lymph # (Auto) 1.9 [place] # (Auto) 1.0 Eos # (Auto) 0.0 Baso # (Auto) 0.1 Absolute Nucleated RBC 0.00 Nucleated RBC % 0.0 Bld Gas Analysis Time 0100 Sample Site LEFT RADIAL ABG pH 7.29 L ABG pCO2 30 L ABG pO2 73 L ABG HCO3 14.1 L ABG Total CO2 15.1 L ABG O2 Saturation 93 L ABG Base Excess -11.1 L Loki Test POSITIVE Room Air YES Sodium 123 L Potassium 5.8 H Chloride 87 L Carbon Dioxide 12 L* Anion Gap 24.0 H BUN 30 H Creatinine 1.2 Estimated GFR (MDRD) 54 L Glucose 803 H* POC Whole Bld Glucose Calcium 10.0 Total Bilirubin 1.2 H AST 13 ALT 15 Alkaline Phosphatase 94 Total Protein 8.1 Albumin 4.8 Globulin 3.3 Albumin/Globulin Ratio 1.5 Lipase 3 L Serum Ketones SMALL H 10/27/22 10/27/22 01:25 02:31 WBC RBC Hgb Hct MCV MCH MCHC RDW Plt Count MPV Neut # (Auto) Lymph # (Auto) [place] # (Auto) Eos # (Auto) Baso # (Auto) Absolute Nucleated RBC Nucleated RBC % Bld Gas Analysis Time Sample Site ABG pH ABG pCO2 ABG pO2 ABG HCO3 ABG Total CO2 ABG O2 Saturation ABG Base Excess Loki Test Room Air Sodium Potassium Chloride Carbon Dioxide Anion Gap BUN Creatinine Estimated GFR (MDRD) Glucose POC Whole Bld Glucose 423 H 324 H Calcium Total Bilirubin AST ALT Alkaline Phosphatase Total Protein Albumin Globulin Albumin/Globulin Ratio Lipase Serum Ketones PD Medical Decision Making - ED course Complexity details: reviewed old records, reviewed results, re-evaluated patient, considered differential, d/w patient ED course: I was concerned that this patient may be on the early end of DKA, as she appeared somewhat ill and had not been vomiting for 3 days in the setting of type 1 diabetes. Her fingerstick glucose read "high" and her ER abdominal panel turned up a glucose level of 803. She was found to have a sodium of 127, potassium 5.7, and anion gap mildly increased at 24. She was positive for serum ketones. The patient's pH was 7.28. I started the patient on an insulin drip with DKA protocol of 0.1 units/kg/h. She was given [id number] liters of normal saline and when I rechecked her while receiving her third liter, she reported feeling much better. I spoke to the telehospitalist on-call who agreed to admit the patient to his service. She was transferred from the ED to the unit in more stable but still critical condition. - Critical Care Time(min): 45 Comments: Critical care time was necessary, secondary to high probability of imminent and life-threatening condition, secondary to acute severe metabolic derangement due to DKA. Time Includes: Direct patient care, Review records, Reassess patient, Document care, Coordinate care, Medical consult, See progress note Data interpretation: Labs, Pulse ox, ABG, Cardiac output, See progress note Departure - Departure Disposition: 66 [facility] DC/Xfer Clinical Impression: DKA (diabetic ketoacidosis) Qualifiers: Diabetes mellitus type: type 1 Diabetes mellitus complication detail: without coma Qualified Code(s): E10.10 - Type 1 diabetes mellitus with ketoacidosis without coma Condition: Critical Discharge Date/Time: 10/27/22 03:36
[2022-10-27] MEDS ORDERED: INSULIN REGULAR IN 0.9 % NS 100 UNIT/100 ML BAG IV SCH ×2 (03:00→16:00)
[2022-10-27] MEDS ORDERED: SODIUM CHLORIDE 0.9% 1,000 ML IV SCH (03:00)
--- NOTE | 2022-10-27 03:04 | HISTORY & PHYSICAL EXAMINATION ---
History and Physical - History and Physical chief complaint abdominal pain nausea vomiting times one day. this is a 27 year old with history of type I diabetes on insulin regimen at home who presented to the emergency room with chief complaint of abdominal pain nausea vomiting times one day. Patient stated that the came down with gallbladder attack and patient was with the went to what appeared to be outpatient evaluation blood work showed sugars were very high. Patient has not been very compliant with her medications seem to be back in four of history is very poor patient is pretty much deviated most of the story. However denies any cough denies any fevers denies any chills denies any dysuria. She has history of fibromyalgia as well on medication she has also been complaining of subtle abdominal discomfort. Persistent of something from the patient to seek medical attention came to the emergency room where she was evaluated was front of elevated glucose levels elevated anion gap and evaluation consistent with diabetic ketoacidosis. Patient started on IV fluid regimen IV insulin drip antiemetics and admitted for further management and diagnostic workup. Past medical history include fibromyalgia, migraines, anxiety, PTSD, Previous surgical history include a . Allergies no known drug allergies noted. Social patients denies any smoking denies any alcohol use she does vape. Denies any marijuana or any paraphernalia. Family history include uncle with that diabetes mellitus, further with kidney cancer. And mom with a rare pain it wasn't clear what she meant with that. Medication list noted as above. Review of systems to 13 systems reviewed negative other than those mentioned abo ve. Physical exams vital signs as documented HEENT normocephalic atraumatic Neck is supple no DVD lymphadenopathy Chest good enter bilateral or no is no crackles Cardiovascular system Ethan tachycardic otherwise no arrhythmias Abdomen soft no tenderness no rebound Extremities no edema of social cyanosis Neurological patient is awake and alert is no focal deficit. Laboratory reviewed Assessment Diabetic ketoacidosis anxiety PTSD fibromyalgia History of arthritis plan patient will admit to intensive care unit and the hospitalist service vitals signs as per intensive care unit protocol IV insulin drip protocol IV fluids were normal saline at 125 and as per our BNP Q six hours 12 gap is closed acute checks Q hourly electrolyte replacement as per protocol with potassium and phosphorus DVT prophylaxis Lovenox 40 mg subcu q day plan discussed the patient answer all questions appropriately on-site hospitalist team will take over in a.m. this is Tele med Video assisted exams Dr Gibbons
[2022-10-27 05:16] LABS: BASOPHILS # (AUTO) 0.1 10^3/uL (0.0-0.1); BASOPHILS % (AUTO) 0.4 %; EOSINOPHILS % (AUTO) 0.3 %; HCT - HEMATOCRIT 32.3 % (37.0-47.0); HGB - HEMOGLOBIN 11.1 g/dL (12.0-16.0); LYMPHOCYTES # (AUTO) 3.7 10^3/uL (1.5-3.5); LYMPHOCYTES % (AUTO) 24.5 %; MEAN CORPUSCULAR HEMOGLOBIN 30.2 pg (27.0-31.0); MEAN CORPUSCULAR HGB CONC 34.4 g/dL (32.0-36.0); MEAN PLATELET VOLUME 9.4 fL (7.9-10.8); MONOCYTES # (AUTO) 1.4 10^3/uL (0.0-1.0); NEUTROPHILS # (AUTO) 9.8 10^3/uL (1.5-6.6); NEUTROPHILS % (AUTO) 64.6 %; PLT - PLATELET COUNT 374 10^3/uL (130-450); RED BLOOD COUNT 3.67 10^6/uL (4.20-5.40); RED CELL DISTRIBUTION WIDTH 11.9 % (12.0-15.0); WHITE BLOOD COUNT 15.2 x10^3/uL (4.8-10.8)
[2022-10-27 05:29] LABS: VBG PH 7.344 (7.31-7.41)
[2022-10-27 05:30] LABS: CALCIUM 9.1 mg/dL (8.5-10.3); CREATININE 0.9 mg/dL (0.6-1.3); MAGNESIUM 1.6 mg/dL (1.7-2.3); POTASSIUM 3.6 mmol/L (3.5-4.5); VBG BASE EXCESS -4.3 mmol/L (-2 - +2); VBG HCO3 21.1 mmol/L (23-28); VBG OXYGEN SATURATION 92.5 % (60-80); VBG PCO2 39.6 mmHg (41-51); VBG PO2 65.8 mmHg (25-47); VBG TOTAL CO2 22.3 mmol/L (24-29)
[2022-10-27] MEDS ORDERED: POTASSIUM CHLOR 20 MEQ/100 ML 20 MEQ/100 ML BAG IV ONE (05:39)
[2022-10-27 05:41] LABS: GLUCOSE, URINE (UA) >=1000 mg/dL (NEGATIVE); KETONES,URINE (UA) 40 mg/dL (NEGATIVE); LEUKOCYTE ESTERASE, URINE NEGATIVE (NEGATIVE); NITRITE,URINE NEGATIVE (NEGATIVE); OCCULT BLOOD,URINE NEGATIVE (NEGATIVE); PROTEIN,URINE NEGATIVE (NEGATIVE); UROBILINOGEN,URINE 0.2 (NORMAL) E.U./dL (NORMAL)
[2022-10-27] MEDS ORDERED: MAGNESIUM SULFATE 2 GRAM 2 GM/50 ML BAG IV ONE (05:43)
[2022-10-27 05:44] LABS: BILIRUBIN,URINE NEGATIVE (NEGATIVE); CLARITY,URINE CLEAR (CLEAR); HCG UR QUAL NEGATIVE; ICTOTEST,URINE NEGATIVE
[2022-10-27] MEDS ORDERED: DEXTROSE 5%-0.9% NACL 1,000 ML IV SCH (06:00)
[2022-10-27] MEDS ORDERED: DEXTROSE 5% 1,000 ML IV SCH (07:00)
[2022-10-27 07:22] LABS: CALCIUM, IONIZED 1.16 mmol/L (1.15-1.33); VBG PH 7.381 (7.31-7.41)
[2022-10-27 07:41] LABS: CALCIUM 9.1 mg/dL (8.5-10.3); CREATININE 0.7 mg/dL (0.6-1.3)
[2022-10-27] MEDS: DEXTROSE 5%-0.9% NACL 1,000 ML IV SCH ×2 (08:02→15:26)
[2022-10-27] MEDS: POTASSIUM CHLOR 10 MEQ/100 ML 10 MEQ/100 ML BAG IV SCH ×2 (08:04→09:16)
[2022-10-27] MEDS: MELOXICAM 7.5 MG TABLET PO SCH ×2 (08:20→20:19)
[2022-10-27] MEDS: FLUoxetine 10 MG CAPSULE PO SCH (08:22)
[2022-10-27] MEDS: buPROPion XL 150 MG TABLET PO SCH (08:22)
[2022-10-27] MEDS: LAMOTRIGINE 100 MG PO SCH (08:23)
[2022-10-27] MEDS: QUEtiapine 25 MG TABLET PO SCH (08:23)
[2022-10-27] MEDS ORDERED: ACETAMINOPHEN 325 MG TABLET PO PRN (08:38)
[2022-10-27 10:13] LABS: CALCIUM 9.3 mg/dL (8.5-10.3); CREATININE 0.8 mg/dL (0.6-1.3); MAGNESIUM 2.3 mg/dL (1.7-2.3); POTASSIUM 4.7 mmol/L (3.5-4.5)
--- NOTE | 2022-10-27 10:44 | PHARMACY PROGRESS NOTE ---
- Best Possible Medication History Admit Date and Time: 10/27/22 0239 Processed by: Pharmacy Medication History completed: Yes Patient Interview: Completed Secondary Source(s): Pharmacy records As the person ultimately responsible for medication therapy, providers are able to order a medication from an existing home medication list in [facility] via the "Reconcile Routine" prior to Confirmation of that medication by cad application support specialist. Such practice is discouraged except when the physician, in their clinical judgment, deems that a medical need exists for a medication without regard to previous use.
[2022-10-27] MEDS ORDERED: POTASSIUM CHLOR 10 MEQ/100 ML 10 MEQ/100 ML BAG IV ONE ×4 (12:51→18:20)
[2022-10-27] MEDS ORDERED: hydrOXYzine PAMOATE 25 MG CAPSULE PO PRN (18:50)
[2022-10-27] MEDS ORDERED: SUMAtriptan 25 MG TABLET PO PRN (18:51)
[2022-10-27] MEDS: clonazePAM 0.5 MG TABLET PO PRN (18:53)
--- NOTE | 2022-10-27 19:09 | PROVIDER PROGRESS NOTE ---
Hospitalist Cross-cover Note - Cross-Cover Note Cross-Cover Note: I met this patient today and we discussed her history. The patient has recently had stress over possibly from her , a stomach bug and had no appetite for the last 3 days. Despite this she noticed that her glucose checks were climbing over 200. She did give herself the proper amounts of insulin for these high numbers. Then she woke up with nausea and vomiting and weakness. She noticed that her sugar was 600 and came to the ER. In the ER the glucose was 800 and she was in DKA Physical exam is unremarkable. There is no abdominal tenderness Assessment/plan: DKA: We will slowly advance her diet Continue with the DKA protocol to follow serum ketones and continue the insulin drip until the serum ketones are negative. Continue IV fluids
[2022-10-27] MEDS ORDERED: GUANFACINE HCL 2 MG PO SCH (21:00)
[2022-10-27] MEDS: tiZANidine 4 MG TABLET PO PRN (21:18)
[2022-10-27 23:01] LABS: ESTIMATED AVERAGE GLUCOSE 203 mg/dL (70-100); HEMOGLOBIN A1c% 8.7 % (4.27-6.07)
[2022-10-28] MEDS: QUEtiapine 25 MG TABLET PO SCH ×2 (00:05→09:41)
[2022-10-28] MEDS: clonazePAM 0.5 MG TABLET PO PRN ×2 (00:53→09:44)
[2022-10-28] MEDS ORDERED: INSULIN GLARGINE-YFGN 300 UNIT/3 ML PEN SUBQ SCH (01:00)
[2022-10-28 04:51] LABS: CALCIUM, IONIZED 1.13 mmol/L (1.15-1.33); VBG PH 7.392 (7.31-7.41)
[2022-10-28 05:05] LABS: CALCIUM 8.8 mg/dL (8.5-10.3); CREATININE 0.7 mg/dL (0.6-1.3); PHOSPHORUS 2.4 mg/dL (3.7-7.2); POTASSIUM 4.4 mmol/L (3.5-4.5)
[2022-10-28] MEDS ORDERED: INSULIN REGULAR HUMAN 100 UNIT in SODIUM CHLORIDE 0.9% 100ML 99 ML IV ONE (06:31)
[2022-10-28] MEDS ORDERED: OXYMETAZOLINE HCL 100 SPRAYS BOTTLE NAS PRN (08:50)
[2022-10-28] MEDS ORDERED: BENZOCAINE/MENTHOL LOZENGE MM PRN (08:51)
[2022-10-28] MEDS ORDERED: MAGNESIUM OXIDE 400 MG TABLET PO ONE (09:00)
[2022-10-28] MEDS: INSULIN LISPRO 300 UNIT/3 ML PEN SUBQ SCH ×2 (09:17→11:47)
[2022-10-28] MEDS: buPROPion XL 150 MG TABLET PO SCH (09:40)
[2022-10-28] MEDS: FLUoxetine 10 MG CAPSULE PO SCH (09:40)
[2022-10-28] MEDS: tiZANidine 4 MG TABLET PO PRN (09:43)
[2022-10-28] MEDS: NEUTRA-PHOS 250 MG TABLET PO SCH ×2 (09:43→11:31)
[2022-10-28] MEDS: MELOXICAM 7.5 MG TABLET PO SCH (09:43)
[2022-10-28] MEDS: LAMOTRIGINE 100 MG PO SCH (09:55)
[2022-10-28 10:18] VITALS: BP 121/89
--- NOTE | 2022-10-28 10:58 | Discharge Plan ---
Discharge Plan Problem Reviewed?: Yes Disposition: Home, Self Care Condition: Critical Prescriptions: Pantoprazole [Protonix] 40 mg PO DAILY #60 tablet Diet: Diabetic Activity Restrictions: No Restrictions Shower Restrictions: No Driving Restrictions: No Instruction Topics: DKA Prevent Ch Plan of Treatment: Please follow up with your singing messenger and PCP. I have prescribed pantoprazole, but if you if you experience any dark or tarry stools, you may need to see a GI specialist, and your PCP can provide a referral for this. No Smoking: If you smoke, Please STOP! Call for help.
[2022-10-28] MEDS ORDERED: GUANFACINE HCL 2 MG PO SCH (21:00)
--- NOTE | 2022-10-29 16:07 | DISCHARGE SUMMARY ---
Discharge Summary Admit Date: 10/27/22 Discharge Date: 10/28/22 Discharging Provider: Dr Tommy Rodgers Condition at Discharge: Stable Discharge Disposition: 01 Home, Self Care - DIAGNOSES Admission Diagnoses: Diabetic ketoacidosis anxiety PTSD fibromyalgia History of arthritis Discharge Diagnoses with Status of Each Condition: DKA - resolved Type1 DM - Stable Anxiety - stable PTSD - stable - HPI History of Present Illness: this is a 27 year old with history of type I diabetes on insulin regimen at home who presented to the emergency room with chief complaint of abdominal pain nausea vomiting times one day. Patient stated that the came down with gallbladder attack and patient was with the went to what appeared to be outpatient evaluation blood work showed sugars were very high. Patient has not been very compliant with her medications seem to be back in four of history is very poor patient is pretty much deviated most of the story. However denies any cough denies any fevers denies any chills denies any dysuria. She has history of fibromyalgia as well on medication she has also been complaining of subtle abdominal discomfort. Persistent of something from the patient to seek medical attention came to the emergency room where she was evaluated was front of elevated glucose levels elevated anion gap and evaluation consistent with diabetic ketoacidosis. Patient started on IV fluid regimen IV insulin drip antie metics and admitted for further management and diagnostic workup. - HOSPITAL COURSE Hospital Course: Patient was treated with DKA protocol including insulin drip, IV fluids, electrolyte replacement, with frequent lab draws. Her anion gap closed overnight. She improved clinically and was able to tolerate p.o. She had no symptoms of abdominal pain, nausea, vomiting on the morning after admission on hospital rounds. Her labs were greatly improved and essentially normalized. She did have mild hyperglycemia in the morning with blood sugar in the range of 200 that was corrected with insulin dosing. Given that she felt well, her labs had improved significantly and DKA was resolved she was deemed to be medically stable for discharge home. - ALLERGIES Allergies/Adverse Reactions: Allergies Allergy/AdvReac Type Severity Reaction Status Date / Time No Known Drug Allergies Allergy Verified 10/26/22 22:58 - MEDICATIONS Home Medications: Ambulatory Orders Medication Instructions Recorded Confirmed Insulin Glargine [Lantus Solostar] 40 unit SQ HS 03/23/21 10/27/22 Insulin Lispro [Humalog Kwikpen 80 units SUBQ DAILY 03/23/21 10/27/22 U-100] Cholecalciferol [Vitamin D3] 1 tab PO DAILY 10/27/22 10/27/22 Cranberry Fruit Extract [Cranberry] 1 tab PO DAILY 10/27/22 10/27/22 Cyanocobalamin (Vitamin B-12) 1 tab PO DAILY 10/27/22 10/27/22 [Vitamin B-12] Glucosamine HCl/Chondroitin [place] 1 tab PO DAILY 10/27/22 10/27/22 [Glucosamine-Chondroitin Cap] Guanfacine HCl [Intuniv] 1 tab PO HS 10/27/22 10/27/22 Multivitamin W/Minerals [Theragran 1 tab PO DAILY 10/27/22 10/27/22 M] Panax, [place] Ginsg/B12/Royl 1 cap PO DAILY 10/27/22 10/27/22 [Ginseng Complex Capsule] Pyridoxine HCl (Vitamin B6) 1 tab PO DAILY 10/27/22 10/27/22 [Pyridoxine HCl] Sumatriptan Succinate [Imitrex] 1 tab PO DAILY PRN MDD 200 10/27/22 10/27/22 clonazePAM [Clonazepam] 1 tab PO QID PRN 10/27/22 10/27/22 hydrOXYzine HCL [Hydroxyzine HCl] 1 tab PO DAILY PRN 10/27/22 10/27/22 traMADol [Ultram] 1 tab PO QID PRN 10/27/22 10/27/22 Acetaminophen [Tylenol] 650 mg PO Q4HR PRN tab 10/28/22 FLUoxetine [PROzac] 60 mg PO DAILY cap 10/28/22 Insulin Lispro [Humalog Kwikpen 1 - 9 unit SUBQ 10/28/22 U-100] 0800,1200,1700,2100 ml Oxymetazoline HCl [Afrin] 2 sprays TRUDI BID PRN each 10/28/22 Pantoprazole [Protonix] 40 mg PO DAILY #60 tablet 10/28/22 QUEtiapine [SEROquel] 50 mg PO BID tab 10/28/22 buPROPion [Wellbutrin Xl] 300 mg PO DAILY tab 10/28/22 tiZANidine [Zanaflex] 2 mg PO TID PRN tab 10/28/22 - PHYSICAL EXAM AT DISCHARGE General Appearance: positive: No acute distress Eyes Bilateral: positive: Normal inspection Respiratory: positive: Chest non-tender, No respiratory distress Cardiovascular: positive: Regular rate & rhythm, No murmur, No gallop Abdomen: positive: Non-tender, No organomegaly, Nml bowel sounds Skin: positive: Color nml Extremities: positive: Non-tender, Full ROM, Nml appearance Neurologic/Psychiatric: positive: Oriented x3, CN's nml (2-12) - LABS Result Diagrams: 10/27/22 04:36 10/28/22 04:38 - DIAGNOSTIC IMAGING Diagnostic Imaging Results: Final report reviewed - FOLLOW UP Follow Up: F/u with endocrine and PCP - TIME SPENT Time Spent in Discharge (Minutes): 33
== END 2022-10-28 11:45 | disposition home or self-care (01) | DRG 639 ==
LOC: ED 22:48 → ICU 10-27 02:39
PROVIDERS: ADMIT Internal Medicine; ATTEND Family Medicine Sports Medicine
DX: E10.10 Type 1 diabetes mellitus with ketoacidosis without coma (principal); F41.9 Anxiety disorder, unspecified; F43.10 Post-traumatic stress disorder, unspecified; M79.7 Fibromyalgia; Z91.148 Patient's other noncompliance with medication regimen for other reason; F17.290 Nicotine dependence, other tobacco product, uncomplicated
CPT/HCPCS: 36415; 36600; 80048; 80053; 81003; 81025; 82009; 82330; 82803; 82947; 83036; 83690; 83735; 84100; 84132; 85025; 87150; 96361; 96374; 99285; 99291; A9270; J1815; 81001; 87086

== ENCOUNTER 2023-01-25 00:03 | Emergency (ER) | payer OTHER, MEDICAID ==
[2023-01-25 01:00] LABS: BASOPHILS # (AUTO) 0.1 10^3/uL (0.0-0.1); BASOPHILS % (AUTO) 0.8 %; EOSINOPHILS # (AUTO) 0.1 10^3/uL (0.0-0.7); EOSINOPHILS % (AUTO) 0.7 %; HCT - HEMATOCRIT 37.3 % (37.0-47.0); HGB - HEMOGLOBIN 13.3 g/dL (12.0-16.0); LYMPHOCYTES # (AUTO) 3.2 10^3/uL (1.5-3.5); LYMPHOCYTES % (AUTO) 38.1 %; MEAN CORPUSCULAR HEMOGLOBIN 30.2 pg (27.0-31.0); MEAN CORPUSCULAR HGB CONC 35.7 g/dL (32.0-36.0); MEAN CORPUSCULAR VOLUME 84.8 fL (81.0-99.0); MONOCYTES # (AUTO) 0.6 10^3/uL (0.0-1.0); NEUTROPHILS # (AUTO) 4.4 10^3/uL (1.5-6.6); NEUTROPHILS % (AUTO) 53.2 %; PLT - PLATELET COUNT 350 10^3/uL (130-450); RED CELL DISTRIBUTION WIDTH 11.9 % (12.0-15.0); WHITE BLOOD COUNT 8.3 x10^3/uL (4.8-10.8)
[2023-01-25] MEDS ORDERED: LORazepam 2 MG/ML VIAL IVP STA (01:01)
[2023-01-25 01:04] LABS: VBG BASE EXCESS -2.5 mmol/L (-2 - +2); VBG HCO3 21.7 mmol/L (23-28); VBG OXYGEN SATURATION 84.3 % (60-80); VBG PCO2 35.7 mmHg (41-51); VBG PH 7.401 (7.31-7.41); VBG PO2 43.3 mmHg (25-47); VBG TOTAL CO2 22.8 mmol/L (24-29)
[2023-01-25 01:06] LABS: KETONES, SERUM (ACETEST) NEGATIVE (NEGATIVE)
[2023-01-25 01:14] LABS: ALBUMIN 4.7 g/dL (3.2-5.5); ALBUMIN/GLOBULIN RATIO 1.6 (1.0-2.2); ALKALINE PHOSPHATASE 92 IU/L (42-121); ALT ALANINE AMINOTRANSFERASE 20 IU/L (10-60); AST ASPARTATE AMINOTRANSFERASE 15 IU/L (10-42); BILIRUBIN,TOTAL 0.4 mg/dL (0.2-1.0); BUN - BLOOD UREA NITROGEN 20 mg/dL (6-20); CALCIUM 10.1 mg/dL (8.5-10.3); CARBON DIOXIDE - CO2 22 mmol/L (21-32); CHLORIDE 92 mmol/L (101-111); CREATININE 0.8 mg/dL (0.6-1.3); GFR - MDRD 86 (>89); GLUCOSE 461 mg/dL (74-104); LIPASE 13 U/L (11-82); SODIUM 127 mmol/L (135-145); TOTAL PROTEIN 7.7 g/dL (6.4-8.9)
[2023-01-25] MEDS ORDERED: SODIUM CHLORIDE 0.9% 1,000 ML IV STA (01:16)
[2023-01-25] MEDS ORDERED: INSULIN REGULAR HUMAN 300 UNIT/3 ML VIAL SUBQ STA (01:16)
--- NOTE | 2023-01-25 01:26 | ED Physician Documentation ---
History of Present Illness - Stated complaint Stated Complaint: BLOOD SUGAR ISSUES - Chief complaint Chief Complaint: General - Additonal information Additional information: Patient 27-year-old female presenting to the emergency department with elevated bloodSugars. Reports that her blood sugars have been elevated for several days. States she has been "stretching" her insulin which contains of Humalog and Lantus. Does report that she had a sore throat and possible viral illness 1 week ago. Denies chest or abdominal pain. Review of Systems Constitutional: denies: Fever Eyes: denies: Loss of vision Ears: denies: Loss of hearing Nose: denies: Rhinorrhea / runny nose Throat: reports: Sore throat Cardiac: denies: Chest pain / pressure Respiratory: denies: Dyspnea GI: denies: Abdominal Pain : denies: Dysuria Skin: denies: Rash Musculoskeletal: denies: Neck pain PD PAST MEDICAL HISTORY - Past Medical History Endocrine/Autoimmune: Type 1 diabetes Psych: Depression, Anxiety Musculoskeletal: Fibromyalgia, Scoliosis - Past Surgical History Past Surgical History: No - Present Medications Home Medications: Ambulatory Orders Medication Instructions Recorded Confirmed Insulin Glargine [Lantus Solostar] 40 unit SQ HS 03/23/21 10/27/22 Insulin Lispro [Humalog Kwikpen 80 units SUBQ DAILY 03/23/21 10/27/22 U-100] Cholecalciferol [Vitamin D3] 1 tab PO DAILY 10/27/22 10/27/22 Cranberry Fruit Extract [Cranberry] 1 tab PO DAILY 10/27/22 10/27/22 Cyanocobalamin (Vitamin B-12) 1 tab PO DAILY 10/27/22 10/27/22 [Vitamin B-12] Glucosamine HCl/Chondroitin Alvarez 1 tab PO DAILY 10/27/22 10/27/22 [Glucosamine-Chondroitin Cap] Guanfacine HCl [Intuniv] 1 tab PO HS 10/27/22 10/27/22 Multivitamin W/Minerals [Theragran 1 tab PO DAILY 10/27/22 10/27/22 M] Panax, [place] Ginsg/B12/Royl 1 cap PO DAILY 10/27/22 10/27/22 [Ginseng Complex Capsule] Pyridoxine HCl (Vitamin B6) 1 tab PO DAILY 10/27/22 10/27/22 [Pyridoxine HCl] Sumatriptan Succinate [Imitrex] 1 tab PO DAILY PRN MDD 200 10/27/22 10/27/22 clonazePAM [Clonazepam] 1 tab PO QID PRN 10/27/22 10/27/22 hydrOXYzine HCL [Hydroxyzine HCl] 1 tab PO DAILY PRN 10/27/22 10/27/22 traMADol [Ultram] 1 tab PO QID PRN 10/27/22 10/27/22 Acetaminophen [Tylenol] 650 mg PO Q4HR PRN tab 10/28/22 FLUoxetine [PROzac] 60 mg PO DAILY cap 10/28/22 Insulin Lispro [Humalog Kwikpen 1 - 9 unit SUBQ 10/28/22 U-100] 0800,1200,1700,2100 ml Oxymetazoline HCl [Afrin] 2 sprays TRUDI BID PRN each 10/28/22 Pantoprazole [Protonix] 40 mg PO DAILY #60 tablet 10/28/22 QUEtiapine [SEROquel] 50 mg PO BID tab 10/28/22 buPROPion [Wellbutrin Xl] 300 mg PO DAILY tab 10/28/22 tiZANidine [Zanaflex] 2 mg PO TID PRN tab 10/28/22 - Allergies Allergies/Adverse Reactions: Allergies Allergy/AdvReac Type Severity Reaction Status Date / Time No Known Drug Allergies Allergy Verified 01/25/23 00:12 - Social History Does the pt smoke?: No Smoking Status: Never smoker Does the pt drink ETOH?: No Does the pt have substance abuse?: No - Immunizations Immunizations are current?: No - POLST Patient has POLST: No PD ED PE NORMAL - Vitals Vital signs reviewed: Yes (Tachycardia) - General General: Alert and oriented X 3, No acute distress, Well developed/nourished - HEENT HEENT: Atraumatic, PERRL, EOMI, Ears normal, Moist mucous membranes, Pharynx benign - Neck Neck: Supple, no meningeal sign, No bony TTP, No adenopathy, Thyroid normal, No JVD, No bruit, C-Spine cleared by NEXUS criteria, Other - Cardiac Cardiac: RRR, No murmur, No gallop, No rub - Respiratory Respiratory: No respiratory distress - Abdomen Abdomen: Normal bowel sounds, Soft, Non tender - Female Female : Deferred - Rectal Rectal: Deferred - Back Back: No CVA TTP - Derm Derm: Normal color - Extremities Extremities: No deformity - Neuro Neuro: Alert and oriented X 3, 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 Relevant findings are: Sinus rhythm with rate 99 bpm. Normal axis. Normal PA, QRS, QTc intervals. No ST segment elevations or T wave inversions. - Labs Labs: Laboratory Tests 01/25/23 01/25/23 01/25/23 00:15 00:50 00:50 WBC 8.3 RBC 4.40 Hgb 13.3 Hct 37.3 MCV 84.8 MCH 30.2 MCHC 35.7 RDW 11.9 L Plt Count 350 MPV 10.0 Neut # (Auto) 4.4 Lymph # (Auto) 3.2 [place] # (Auto) 0.6 Eos # (Auto) 0.1 Baso # (Auto) 0.1 Absolute Nucleated RBC 0.00 Nucleated RBC % 0.0 VBG pH VBG pCO2 VBG pO2 VBG HCO3 VBG Total CO2 VBG O2 Saturation VBG Base Excess Sodium 127 L Potassium 4.0 Chloride 92 L Carbon Dioxide 22 Anion Gap 13.0 BUN 20 Creatinine 0.8 Estimated GFR (MDRD) 86 L Glucose 461 H POC Whole Bld Glucose 471 H Calcium 10.1 Phosphorus 3.0 Total Bilirubin 0.4 AST 15 ALT 20 Alkaline Phosphatase 92 Total Protein 7.7 Albumin 4.7 Globulin 3.0 Albumin/Globulin Ratio 1.6 Lipase 13 Urine Color Urine Clarity Urine pH Ur Specific [place] Urine Protein Urine Glucose (UA) Urine Ketones Urine Occult Blood Urine Nitrite Urine Bilirubin Urine Urobilinogen Ur Leukocyte Esterase Ur Microscopic Review Urine Culture Comments Nasal Adenovirus (PCR) Nasal B. parapertussis DNA (PCR) Nasal Coronavir 229E PCR Nasal Coronavir HKU1 PCR Nasal Coronavir NL63 PCR Nasal Coronavir OC43 PCR Nasal Enterovir/Rhinovir PCR Nasal Influenza B PCR Nasal Influenza A PCR Nasal Parainfluen 1 PCR Nasal Parainfluen 2 PCR Nasal Parainfluen 3 PCR Nasal Parainfluen 4 PCR Nasal RSV (PCR) Nasal B.pertussis DNA PCR Nasal C.pneumoniae (PCR) Trudi Human Metapneumo PCR Nasal M.pneumoniae (PCR) Nasal SARS-CoV-2 (PCR) Serum Ketones NEGATIVE 01/25/23 01/25/23 01/25/23 00:50 01:30 01:30 WBC RBC Hgb Hct MCV MCH MCHC RDW Plt Count MPV Neut # (Auto) Lymph # (Auto) [place] # (Auto) Eos # (Auto) Baso # (Auto) Absolute Nucleated RBC Nucleated RBC % VBG pH 7.401 VBG pCO2 35.7 L VBG pO2 43.3 VBG HCO3 21.7 L VBG Total CO2 22.8 L VBG O2 Saturation 84.3 H VBG Base Excess -2.5 L Sodium Potassium Chloride Carbon Dioxide Anion Gap BUN Creatinine Estimated GFR (MDRD) Glucose POC Whole Bld Glucose Calcium Phosphorus Total Bilirubin AST ALT Alkaline Phosphatase Total Protein Albumin Globulin Albumin/Globulin Ratio Lipase Urine Color YELLOW Urine Clarity CLEAR Urine pH 5.5 Ur Specific [place] 1.015 Urine Protein NEGATIVE Urine Glucose (UA) >=1000 H Urine Ketones 15 H Urine Occult Blood NEGATIVE Urine Nitrite NEGATIVE Urine Bilirubin NEGATIVE Urine Urobilinogen 0.2 (NORMAL) Ur Leukocyte Esterase NEGATIVE Ur Microscopic Review NOT INDICATED Urine Culture Comments NOT INDICATED Nasal Adenovirus (PCR) NOT DETECTED Nasal B. parapertussis DNA (PCR) NOT DETECTED Nasal Coronavir 229E PCR NOT DETECTED Nasal Coronavir HKU1 PCR NOT DETECTED Nasal Coronavir NL63 PCR NOT DETECTED Nasal Coronavir OC43 PCR NOT DETECTED Nasal Enterovir/Rhinovir PCR NOT DETECTED Nasal Influenza B PCR NOT DETECTED Nasal Influenza A PCR NOT DETECTED Nasal Parainfluen 1 PCR NOT DETECTED Nasal Parainfluen 2 PCR NOT DETECTED Nasal Parainfluen 3 PCR NOT DETECTED Nasal Parainfluen 4 PCR NOT DETECTED Nasal RSV (PCR) NOT DETECTED Nasal B.pertussis DNA PCR NOT DETECTED Nasal C.pneumoniae (PCR) NOT DETECTED Trudi Human Metapneumo PCR NOT DETECTED Nasal M.pneumoniae (PCR) NOT DETECTED Nasal SARS-CoV-2 (PCR) NOT DETECTED Serum Ketones 01/25/23 01/25/23 01:47 03:40 WBC RBC Hgb Hct MCV MCH MCHC RDW Plt Count MPV Neut # (Auto) Lymph # (Auto) [place] # (Auto) Eos # (Auto) Baso # (Auto) Absolute Nucleated RBC Nucleated RBC % VBG pH VBG pCO2 VBG pO2 VBG HCO3 VBG Total CO2 VBG O2 Saturation VBG Base Excess Sodium Potassium Chloride Carbon Dioxide Anion Gap BUN Creatinine Estimated GFR (MDRD) Glucose POC Whole Bld Glucose 451 H 278 H Calcium Phosphorus Total Bilirubin AST ALT Alkaline Phosphatase Total Protein Albumin Globulin Albumin/Globulin Ratio Lipase Urine Color Urine Clarity Urine pH Ur Specific [place] Urine Protein Urine Glucose (UA) Urine Ketones Urine Occult Blood Urine Nitrite Urine Bilirubin Urine Urobilinogen Ur Leukocyte Esterase Ur Microscopic Review Urine Culture Comments Nasal Adenovirus (PCR) Nasal B. parapertussis DNA (PCR) Nasal Coronavir 229E PCR Nasal Coronavir HKU1 PCR Nasal Coronavir NL63 PCR Nasal Coronavir OC43 PCR Nasal Enterovir/Rhinovir PCR Nasal Influenza B PCR Nasal Influenza A PCR Nasal Parainfluen 1 PCR Nasal Parainfluen 2 PCR Nasal Parainfluen 3 PCR Nasal Parainfluen 4 PCR Nasal RSV (PCR) Nasal B.pertussis DNA PCR Nasal C.pneumoniae (PCR) Trudi Human Metapneumo PCR Nasal M.pneumoniae (PCR) Nasal SARS-CoV-2 (PCR) Serum Ketones PD Medical Decision Making - ED course Complexity details: reviewed old records, reviewed results, re-evaluated patient, d/w patient ED course: Patient 27-year-old female past medical type I diabetic presenting to the emergency department with elevated blood sugar. Tachycardic on arrival but otherwise afebrile and hemodynamically stable. Blood sugar greater than 400 on arrival. Comprehensive labs did not demonstrate any signs of DKA. EKG and other testing reassuring. Given insulin and IV hydration with successful improvement in her glucose. Encourage follow-up with primary care return to the emergency department. Departure - Departure Disposition: Home, Self Care Clinical Impression: Hyperglycemia Instructions: Diabetes Type 1 Coping, Hyperglycemia Comments: Thank you for allowing us to care for you today [facility]. Today in the emergency department you were treated for elevated blood sugar. There is no signs of diabetic ketoacidosis in your lab work. It is important that you take all of your medications as prescribed and follow-up with your primary care doctor soon as possible concerning your ER visit. They may wish to review your current any diabetic regimen with you. If it anytime you have new or worsening symptoms please do not hesitate to return. Forms: PCP List, Activity restrictions
[2023-01-25 01:47] LABS: BILIRUBIN,URINE NEGATIVE (NEGATIVE); GLUCOSE, URINE (UA) >=1000 mg/dL (NEGATIVE); KETONES,URINE (UA) 15 mg/dL (NEGATIVE); LEUKOCYTE ESTERASE, URINE NEGATIVE (NEGATIVE); NITRITE,URINE NEGATIVE (NEGATIVE); OCCULT BLOOD,URINE NEGATIVE (NEGATIVE); PH,URINE 5.5 PH (5.0-7.5); PROTEIN,URINE NEGATIVE (NEGATIVE); UROBILINOGEN,URINE 0.2 (NORMAL) E.U./dL (NORMAL)
[2023-01-25 01:48] LABS: CLARITY,URINE CLEAR (CLEAR)
[2023-01-25 02:55] LABS: B. PARAPERTUSSIS- RESP PCR PAN NOT DETECTED; B. PERTUSSIS- RESP PCR PANEL NOT DETECTED; C. PNEUMONIAE- RESP PCR PANEL NOT DETECTED; CORONAVIRUS 229E-RESP PCR NOT DETECTED; CORONAVIRUS HKU1-RESP PCR NOT DETECTED; CORONAVIRUS NL63-RESP PCR NOT DETECTED; CORONAVIRUS OC43-RESP PCR NOT DETECTED; HUMAN METAPNEUMOVIRUS NOT DETECTED; INFLUENZA A- RESP PCR PANEL NOT DETECTED; INFLUENZA B - RESP PCR PANEL NOT DETECTED; M. PNEUMONIAE- RESP PCR PANEL NOT DETECTED; PARAINFLUENZA VIRUS 1 NOT DETECTED; PARAINFLUENZA VIRUS 2 NOT DETECTED; PARAINFLUENZA VIRUS 3 NOT DETECTED; PARAINFLUENZA VIRUS 4 NOT DETECTED; RHINOVIRUS/ENTEROVIRUS NOT DETECTED; RSV- RESP PCR PANEL NOT DETECTED; SARS-CoV-2 -RESP PCR PANEL NOT DETECTED
[2023-01-25 03:54] VITALS: O2SAT 93
[2023-01-25 04:03] VITALS: BP 106/71
== END 2023-01-25 04:08 | disposition home or self-care (01) ==
LOC: ED 00:03
DX: E10.65 Type 1 diabetes mellitus with hyperglycemia (principal); R00.0 Tachycardia, unspecified; Z20.822 Contact with and (suspected) exposure to COVID-19
CPT/HCPCS: 36415; 80053; 81003; 82009; 82803; 83690; 84100; 85025; 87633; 93005; 96374; 99283; 99284; J1815; J2060; 81001; 87086

== ENCOUNTER 2023-02-24 13:33 | Emergency (ER) | payer OTHER, MEDICAID ==
[2023-02-24 13:54] VITALS: BP 153/97
--- NOTE | 2023-02-24 14:24 | XRAY Report ---
PROCEDURE: Foot 3 View RT INDICATIONS: Trauma TECHNIQUE: 3 views of the foot were acquired. COMPARISON: None. FINDINGS: Bones: No fractures or dislocations. No suspicious bony lesions. Soft tissues: No suspicious soft tissue calcifications or masses. IMPRESSION: No acute bony abnormality. Reviewed by: Fadi Almaguer MD on 02/24/2023 2:23 PM PST Approved by: Fadi Almaguer MD on 02/24/2023 2:23 PM [facility] Station ID: [id number]
--- NOTE | 2023-02-24 14:24 | XRAY Report ---
PROCEDURE: Ankle 3 View BILAT INDICATIONS: Trauma TECHNIQUE: 3 views of the ankle were acquired. COMPARISON: None. FINDINGS: Bones: No fractures or dislocations. Ankle mortise is normally aligned. No suspicious bony lesions . Soft tissues: No tibiotalar joint effusion. Achilles tendon appears normal. IMPRESSION: No acute bony abnormality. Reviewed by: Fadi Almaguer MD on 02/24/2023 2:23 PM [facility] Approved by: Fadi Almaguer MD on 02/24/2023 2:23 PM [facility] Station ID: [id number]
[2023-02-24] MEDS ORDERED: KETOROLAC 60 MG/2 ML VIAL IM STA (15:18)
--- NOTE | 2023-02-24 15:21 | ED Physician Documentation ---
PD HPI LOWER EXT INJURY - Stated complaint Stated Complaint: BILAT LEG INJ - Chief complaint Chief Complaint: Trauma Ext - History obtained from History obtained from: Patient, Family - History of Present Illness PD HPI LOW EXT INJURY LOCATION: Right - Additional information Additional information: 27-year-old woman with history of type 1 diabetes and opiate use disorder fell down 3 stairs because she was not wearing her glasses and injured both ankles and the right foot. Pain is severe. She is not able to walk or bear weight on the right side. No other injuries. PD PAST MEDICAL HISTORY - Past Medical History Endocrine/Autoimmune: Type 1 diabetes Psych: Depression, Anxiety Musculoskeletal: Fibromyalgia, Scoliosis - Past Surgical History Past Surgical History: No - Present Medications Home Medications: Ambulatory Orders Medication Instructions Recorded Confirmed Insulin Glargine [Lantus Solostar] 40 unit SQ HS 03/23/21 10/27/22 Insulin Lispro [Humalog Kwikpen 80 units SUBQ DAILY 03/23/21 10/27/22 U-100] Cholecalciferol [Vitamin D3] 1 tab PO DAILY 10/27/22 10/27/22 Cranberry Fruit Extract [Cranberry] 1 tab PO DAILY 10/27/22 10/27/22 Cyanocobalamin (Vitamin B-12) 1 tab PO DAILY 10/27/22 10/27/22 [Vitamin B-12] Glucosamine HCl/Chondroitin Alvarez 1 tab PO DAILY 10/27/22 10/27/22 [Glucosamine-Chondroitin Cap] Guanfacine HCl [Intuniv] 1 tab PO HS 10/27/22 10/27/22 Multivitamin W/Minerals [Theragran 1 tab PO DAILY 10/27/22 10/27/22 M] Panax, [place] Ginsg/B12/Royl 1 cap PO DAILY 10/27/22 10/27/22 [Ginseng Complex Capsule] Pyridoxine HCl (Vitamin B6) 1 tab PO DAILY 10/27/22 10/27/22 [Pyridoxine HCl] Sumatriptan Succinate [Imitrex] 1 tab PO DAILY PRN MDD 200 10/27/22 10/27/22 clonazePAM [Clonazepam] 1 tab PO QID PRN 10/27/22 10/27/22 hydrOXYzine HCL [Hydroxyzine HCl] 1 tab PO DAILY PRN 10/27/22 10/27/22 traMADol [Ultram] 1 tab PO QID PRN 10/27/22 10/27/22 Acetaminophen [Tylenol] 650 mg PO Q4HR PRN tab 10/28/22 FLUoxetine [PROzac] 60 mg PO DAILY cap 10/28/22 Insulin Lispro [Humalog Kwikpen 1 - 9 unit SUBQ 10/28/22 U-100] 0800,1200,1700,2100 ml Oxymetazoline HCl [Afrin] 2 sprays TRUDI BID PRN each 10/28/22 Pantoprazole [Protonix] 40 mg PO DAILY #60 tablet 10/28/22 QUEtiapine [SEROquel] 50 mg PO BID tab 10/28/22 buPROPion [Wellbutrin Xl] 300 mg PO DAILY tab 10/28/22 tiZANidine [Zanaflex] 2 mg PO TID PRN tab 10/28/22 Benzocaine/Menthol [Cepacol Sore 1 each MM Q6HR #30 lozenge 01/25/23 Throat Lozenge] Ondansetron Odt [Zofran] 4 mg TL Q6H PRN #10 tablet 01/25/23 Meloxicam [Mobic] 7.5 mg PO BID PRN #20 tablet 02/24/23 - Allergies Allergies/Adverse Reactions: Allergies Allergy/AdvReac Type Severity Reaction Status Date / Time No Known Drug Allergies Allergy Verified 01/25/23 00:12 - Social History Does the pt smoke?: No Smoking Status: Never smoker Does the pt drink ETOH?: No Does the pt have substance abuse?: No - Immunizations Immunizations are current?: No - POLST Patient has POLST: No PD ED PE NORMAL - Vitals Vital signs reviewed: Yes - General General: Alert and oriented X 3, No acute distress - Cardiac Cardiac: RRR, No murmur - Respiratory Respiratory: No respiratory distress, Clear bilaterally - Abdomen Abdomen: Non tender - Extremities Extremities: Other (Minimal tenderness over either ankle, there is significant tenderness and swelling over the dorsal right forefoot.) - Neuro Neuro: Alert and oriented X 3, Normal speech Results - Vitals Vitals: Vital Signs - 24 hr 02/24/23 13:44 Temperature 36.2 C L Heart Rate 111 H Respiratory 20 Rate Blood Pressure 153/97 H Oxygen O2 Source Room air - Rads (name of study) X-rays of both ankles and the right foot are negative for fracture. Relevant Findings:: Final report received, EMP independent interpretation of test PD Medical Decision Making - ED course ED course: 27-year-old woman with foot sprain and minor injuries after a fall. Per the she has a history of narcotic addiction and she is administered Toradol here as well as a boot and crutches. Departure - Departure Disposition: 01 Home, Self Care Clinical Impression: Right ankle sprain Qualifiers: Encounter type: initial encounter Involved ligament of ankle: anterior talofibular ligament Qualified Code(s): S93.491A - Sprain of other ligament of right ankle, initial encounter Left ankle sprain Qualifiers: Encounter type: initial encounter Involved ligament of ankle: anterior talofibular ligament Qualified Code(s): S93.492A - Sprain of other ligament of left ankle, initial encounter Right foot sprain Qualifiers: Encounter type: initial encounter Qualified Code(s): S93.601A - Unspecified sprain of right foot, initial encounter Condition: Good Record reviewed to determine appropriate education?: Yes Instructions: ED Sprain Ankle W X Ray Prescriptions: Meloxicam [Mobic] 7.5 mg PO BID PRN #20 tablet PRN Reason: Pain Comments: Ice the top of the foot especially 5 minutes on an hour off, elevate. Return for new or worsening symptoms. Follow-up with your primary care physician if not better in a week.
== END 2023-02-24 15:48 | disposition home or self-care (01) ==
LOC: ED 13:33
DX: S93.491A Sprain of other ligament of right ankle, initial encounter (principal); S93.492A Sprain of other ligament of left ankle, initial encounter; S93.601A Unspecified sprain of right foot, initial encounter; W10.9XXA Fall (on) (from) unspecified stairs and steps, initial encounter; E10.9 Type 1 diabetes mellitus without complications; Z79.4 Long term (current) use of insulin
CPT/HCPCS: 96372; 99283; 99284

== ENCOUNTER 2023-03-01 17:00 | Outpatient (CLI) | payer OTHER, MEDICAID ==
[2023-03-01 23:18] LABS: INFLUENZA A- RESP PCR PANEL NOT DETECTED; INFLUENZA B - RESP PCR PANEL NOT DETECTED; RSV- RESP PCR PANEL DETECTED; SARS-CoV-2 -RESP PCR PANEL NOT DETECTED
== END 2023-03-01 17:15 | disposition home or self-care (01) ==
LOC: LAB.N 17:00
PROVIDERS: ATTEND Physician Assistant Medical
DX: B34.9 Viral infection, unspecified (principal)
CPT/HCPCS: 87637

== ENCOUNTER 2023-06-04 16:21 | Outpatient (CLI) | payer OTHER, MEDICAID ==
--- NOTE | 2023-06-04 19:46 | XRAY Report ---
PROCEDURE: Foot 3+V RT INDICATIONS: PAIN IN RIGHT ANKLE AND JOINT OF RIGHT FOOT TECHNIQUE: 3 views of the foot were acquired. COMPARISON: Right foot radiographs 02/24/2023 FINDINGS: Bones: Mild widening of the 1st intermetatarsal distance is seen with small osseous fragments betwee n the metatarsal bases, suspicious for a Lisfranc injury, which appears new when compared to the radi ographs from 02/24/2023. No suspicious bony lesions. Soft tissues: Mild soft tissue edema is seen at the dorsal midfoot. IMPRESSION: The 1st intermetatarsal distance appears mildly widened and contains small osseous fragments near the metatarsal bases, suspicious for an injury to the Lisfranc ligament complex. CT or MRI could be perf ormed for further evaluation if indicated clinically. Reviewed by: Kimo Zavala MD on 06/04/2023 7:45 PM PST Approved by: Kimo Zavala MD on 06/04/2023 7:45 PM PST Station ID: [id number]
== END 2023-06-04 16:22 | disposition home or self-care (01) ==
LOC: DI 16:21
PROVIDERS: ATTEND Family Medicine
DX: M25.571 Pain in right ankle and joints of right foot (principal); R93.6 Abnormal findings on diagnostic imaging of limbs

== ENCOUNTER 2023-07-26 18:21 | Inpatient (IN) | payer OTHER, MEDICAID ==
--- NOTE | 2023-07-26 18:37 | ED Physician Documentation ---
History of Present Illness - Stated complaint Stated Complaint: SOA - Chief complaint Chief Complaint: General - History obtained from History obtained from: Patient - Additonal information Additional information: 28-year-old woman with type 1 diabetes on Lantus and Humalog sliding scale. Also other comorbidities including PTSD, anxiety and chronic pain. She developed a sore throat last week and was seen in the clinic. She had negative strep test she says, but subsequently was prescribed antibiotics and steroids. After starting steroids her blood sugars became labile and she has been having trouble eating because of the sore throat. Starting today she developed shortness of breath and nausea without abdominal or chest pain. She went to the clinic and her blood sugar was too high to calculate so was sent here for concern for DKA. PD PAST MEDICAL HISTORY - Past Medical History Past Medical History: Yes Endocrine/Autoimmune: Type 1 diabetes Psych: Depression, Anxiety Musculoskeletal: Fibromyalgia, Scoliosis - Past Surgical History Past Surgical History: No - Present Medications Home Medications: Ambulatory Orders Medication Instructions Recorded Confirmed Insulin Glargine [Lantus Solostar] 40 unit SQ HS 03/23/21 10/27/22 Insulin Lispro [Humalog Kwikpen 80 units SUBQ DAILY 03/23/21 10/27/22 U-100] Cholecalciferol [Vitamin D3] 1 tab PO DAILY 10/27/22 10/27/22 Cranberry Fruit Extract [Cranberry] 1 tab PO DAILY 10/27/22 10/27/22 Cyanocobalamin (Vitamin B-12) 1 tab PO DAILY 10/27/22 10/27/22 [Vitamin B-12] Glucosamine HCl/Chondroitin [place] 1 tab PO DAILY 10/27/22 10/27/22 [Glucosamine-Chondroitin Cap] Guanfacine HCl [Intuniv] 1 tab PO HS 10/27/22 10/27/22 Multivitamin W/Minerals [Theragran 1 tab PO DAILY 10/27/22 10/27/22 M] Panax, [place] Ginsg/B12/Royl 1 cap PO DAILY 10/27/22 10/27/22 [Ginseng Complex Capsule] Pyridoxine HCl (Vitamin B6) 1 tab PO DAILY 10/27/22 10/27/22 [Pyridoxine HCl] Sumatriptan Succinate [Imitrex] 1 tab PO DAILY PRN MDD 200 10/27/22 10/27/22 clonazePAM [Clonazepam] 1 tab PO QID PRN 10/27/22 10/27/22 hydrOXYzine HCL [Hydroxyzine HCl] 1 tab PO DAILY PRN 10/27/22 10/27/22 traMADol [Ultram] 1 tab PO QID PRN 10/27/22 10/27/22 Acetaminophen [Tylenol] 650 mg PO Q4HR PRN tab 10/28/22 FLUoxetine [PROzac] 60 mg PO DAILY cap 10/28/22 Insulin Lispro [Humalog Kwikpen 1 - 9 unit SUBQ 10/28/22 U-100] 0800,1200,1700,2100 ml Oxymetazoline HCl [Afrin] 2 sprays TRUDI BID PRN each 10/28/22 Pantoprazole [Protonix] 40 mg PO DAILY #60 tablet 10/28/22 QUEtiapine [SEROquel] 50 mg PO BID tab 10/28/22 buPROPion [Wellbutrin Xl] 300 mg PO DAILY tab 10/28/22 tiZANidine [Zanaflex] 2 mg PO TID PRN tab 10/28/22 Benzocaine/Menthol [Cepacol Sore 1 each MM Q6HR #30 lozenge 01/25/23 Throat Lozenge] Ondansetron Odt [Zofran] 4 mg TL Q6H PRN #10 tablet 01/25/23 Meloxicam [Mobic] 7.5 mg PO BID PRN #20 tablet 02/24/23 - Allergies Allergies/Adverse Reactions: Allergies Allergy/AdvReac Type Severity Reaction Status Date / Time No Known Drug Allergies Allergy Verified 07/26/23 18:24 - Social History Does the pt smoke?: No Smoking Status: Never smoker Does the pt drink ETOH?: No Does the pt have substance abuse?: No - Immunizations Immunizations are current?: No - POLST Patient has POLST: No PD ED PE NORMAL - Vitals Vital signs reviewed: Yes (Very tachycardic) - General General: Alert and oriented X 3, No acute distress - HEENT HEENT: PERRL, EOMI - Neck Neck: Supple, no meningeal sign, No bony TTP - Cardiac Cardiac: Other (Tachycardic but regular without murmur) - Respiratory Respiratory: No respiratory distress, Clear bilaterally - Abdomen Abdomen: Non tender - Extremities Extremities: No edema, No calf tenderness / cord - Neuro Neuro: Alert and oriented X 3, Normal speech Results - Vitals Vitals: Vital Signs - 24 hr 07/26/23 18:24 Temperature 36.6 C Heart Rate 110 H Respiratory 20 Rate Blood Pressure 132/77 H O2 Saturation 97 Oxygen O2 Source Room air - EKG (time done) 1845 EKG releavant findings:: EKG personally interpreted by author of this note. Relevant findings are: Rate: Rate (enter#) (143) Rhythm: Sinus tachycardia, LAE [place]: Normal Intervals: Normal [place] QRS: Normal Ischemia: Normal ST segments, Non specific changes - Labs Labs: Laboratory Tests 07/26/23 07/26/23 07/26/23 18:42 18:42 18:42 WBC 19.8 H RBC 4.72 Hgb 14.2 Hct 40.4 MCV 85.6 MCH 30.1 MCHC 35.1 RDW 11.6 L Plt Count 528 H MPV 9.2 Neut # (Auto) 14.2 H Lymph # (Auto) 3.7 H [place] # (Auto) 1.4 H Eos # (Auto) 0.0 Baso # (Auto) 0.1 Absolute Nucleated RBC 0.00 Nucleated RBC % 0.0 VBG pH 7.284 L VBG pCO2 31.7 L VBG pO2 44.6 VBG HCO3 14.7 L VBG Total CO2 15.7 L VBG O2 Saturation 79.3 VBG Base Excess -10.6 L Sodium 133 L Potassium 4.4 Chloride 93 L Carbon Dioxide 15 L Anion Gap 25.0 H BUN 30 H Creatinine 1.4 H Estimated GFR (MDRD) 45 L Glucose 427 H Calcium 10.3 Phosphorus 5.5 H Magnesium 1.6 L Total Bilirubin 0.6 AST 14 ALT 13 Alkaline Phosphatase 110 Total Protein 8.7 Albumin 5.2 Globulin 3.5 Albumin/Globulin Ratio 1.5 Serum Ketones MODERATE H PD Medical Decision Making - ED course ED course: 28-year-old woman with history of diabetes presents with hyperglycemia and symptoms consistent with prior episodes of DKA after being on steroids for the last week for a sore throat. Workup in the emergency department demonstrates a white count of 19,000, mild acidosis on VBG, she has acidosis also on CMP with a bicarb of 15 and a gap of 25 with some GLADYS and hyperglycemia. Also mild hypomagnesemia which I will replete IV. She has moderate serum ketones. She was administered some IV fluids followed by saline +20 of K at twice maintenance and an insulin drip. Spoke with Dr. Barrientos for admission at 7:32 PM. - Critical Care Time(min): 37 Time Includes: Direct patient care, Review records, Reassess patient, Document care, Coordinate care, Medical consult, Family consult for tx dec Data interpretation: Labs, Pulse ox Procedures included in critical care time: Peripheral IV Procedures excluded from critical care time: EKG Departure - Departure Disposition: 66 [facility] DC/Xfer Clinical Impression: DKA (diabetic ketoacidosis) Condition: Serious Forms: PCP List
[2023-07-26 18:46] LABS: BASOPHILS # (AUTO) 0.1 10^3/uL (0.0-0.1); BASOPHILS % (AUTO) 0.5 %; EOSINOPHILS % (AUTO) 0.1 %; HCT - HEMATOCRIT 40.4 % (37.0-47.0); HGB - HEMOGLOBIN 14.2 g/dL (12.0-16.0); LYMPHOCYTES # (AUTO) 3.7 10^3/uL (1.5-3.5); LYMPHOCYTES % (AUTO) 18.6 %; MEAN CORPUSCULAR HEMOGLOBIN 30.1 pg (27.0-31.0); MEAN CORPUSCULAR HGB CONC 35.1 g/dL (32.0-36.0); MEAN CORPUSCULAR VOLUME 85.6 fL (81.0-99.0); MEAN PLATELET VOLUME 9.2 fL (7.9-10.8); MONOCYTES # (AUTO) 1.4 10^3/uL (0.0-1.0); MONOCYTES % (AUTO) 7.1 %; NEUTROPHILS # (AUTO) 14.2 10^3/uL (1.5-6.6); NEUTROPHILS % (AUTO) 71.8 %; PLT - PLATELET COUNT 528 10^3/uL (130-450); RED BLOOD COUNT 4.72 10^6/uL (4.20-5.40); RED CELL DISTRIBUTION WIDTH 11.6 % (12.0-15.0); WHITE BLOOD COUNT 19.8 x10^3/uL (4.8-10.8)
[2023-07-26 18:47] LABS: VBG BASE EXCESS -10.6 mmol/L (-2 - +2); VBG HCO3 14.7 mmol/L (23-28); VBG OXYGEN SATURATION 79.3 % (60-80); VBG PCO2 31.7 mmHg (41-51); VBG PH 7.284 (7.31-7.41); VBG PO2 44.6 mmHg (25-47); VBG TOTAL CO2 15.7 mmol/L (24-29)
[2023-07-26] MEDS: SODIUM CHLORIDE 0.9% 1,000 ML IV STA (18:50)
[2023-07-26] MEDS: ONDANSETRON 4 MG/2 ML VIAL IVP STA (18:50)
[2023-07-26] MEDS: HYDROmorphone 1 MG/ML CARPUJECT IVP STA (18:50)
[2023-07-26 18:51] LABS: KETONES, SERUM (ACETEST) MODERATE (NEGATIVE)
[2023-07-26 18:54] LABS: MAGNESIUM 1.6 mg/dL (1.7-2.3)
[2023-07-26 18:57] LABS: ALBUMIN 5.2 g/dL (3.2-5.5); BILIRUBIN,TOTAL 0.6 mg/dL (0.2-1.0); CALCIUM 10.3 mg/dL (8.5-10.3); CARBON DIOXIDE - CO2 15 mmol/L (21-32); CHLORIDE 93 mmol/L (101-111); POTASSIUM 4.4 mmol/L (3.5-4.5); SODIUM 133 mmol/L (135-145)
[2023-07-26 19:00] LABS: PHOSPHORUS 5.5 mg/dL (2.5-5.0)
[2023-07-26 19:01] LABS: ALBUMIN/GLOBULIN RATIO 1.5 (1.0-2.2); ALKALINE PHOSPHATASE 110 IU/L (42-121); ALT ALANINE AMINOTRANSFERASE 13 IU/L (10-60); AST ASPARTATE AMINOTRANSFERASE 14 IU/L (10-42); BUN - BLOOD UREA NITROGEN 30 mg/dL (6-20); CREATININE 1.4 mg/dL (0.6-1.3); GFR - MDRD 45 (>89); GLUCOSE 427 mg/dL (74-104); TOTAL PROTEIN 8.7 g/dL (6.4-8.9)
[2023-07-26] MEDS: ALPRAZolam 0.25 MG TABLET PO STA (20:04)
[2023-07-26] MEDS ORDERED: traMADol 50 MG TABLET PO PRN (20:06)
[2023-07-26] MEDS ORDERED: ACETAMINOPHEN 325 MG TABLET PO PRN (20:06)
--- NOTE | 2023-07-26 20:14 | HISTORY & PHYSICAL EXAMINATION ---
Chief Complaint - Chief Complaint Chief Complaint: High BS History of Present Illness - Admitted From Admitted From:: ER - History Obtained From Records Reviewed: Yes History obtained from: Patient, staff, chart Exam Limitations: Virtual exam - History of Present Illness HPI Comment/Other: H&P was conducted via video remotely, using Access Cart. Patient is in [place]. Physician is in [place]. No one is at bedside. 28 yo F with PMH of DM type 1 (dx'd at age 16 yo) with h/o DKA, Anxiety/PTSD, Fibromyalgia/Chronic pain/Scoliosis/LBP, GERD presented to the ER from for high BS today. Pt began to have sore throat on 07/19/23/1 week ago. +weakness. +decreased PO intake d/t sore throat. She went to . Her strep test was negative. She was given prescriptions for antibiotics and steroids. Pt called her PCP prior to taking the steroids d/t her concerns that it would affect her BS and he told her it was okay, so she started medications on 07/22/23. On 07/23/23, her BS was 33 at 11P. She ate some candy. She also dropped her accuc heck machine and it rolled under her bed and she could not find it after that, but also did not have much energy to look for it. She was then unable to check her BS after 07/23/23. Yesterday, she felt weak and it was hard to walk. +heart racing, + SOB with activity. Today, she had to run errands/go shopping. She felt more weak and short of breath afterwards and could not check her BS, so went to Urgent Care, where her BS was >500 and they sent her to the ER. Her sore throat is much improved. She is hungry and requests a clear liquid diet. +nausea/epigastric pain, no vomiting, no CP/cough/F/C, no dysuria. Pt's is in the and she takes care of their 5 yo daughter. In the ER, HR 110-140s, WBC 19.8, pH 7.284, Na 133, CO2 15, AG 25, CR 1.4, Glc 427, Mg 1.6, s.ketones +, HCG pending Pt was given IVF with K, Mag 2 gm IV, Dilaudid, Insulin gtt in the ER. History - Past Medical History Endocrine/Autoimmune: reports: Type 1 diabetes Psych: reports: Depression, Anxiety Musculoskeletal: reports: Fibromyalgia, Scoliosis MRSA Hx?: No - Family & Social History Living Situation: With family - POLST Patient has POLST: No Meds/Allgy - Home Medications Home Medications: Ambulatory Orders Medication Instructions Recorded Confirmed Insulin Glargine [Lantus Solostar] 40 unit SQ HS 03/23/21 10/27/22 Insulin Lispro [Humalog Kwikpen 80 units SUBQ DAILY 03/23/21 10/27/22 U-100] Cholecalciferol [Vitamin D3] 1 tab PO DAILY 10/27/22 10/27/22 Cranberry Fruit Extract [Cranberry] 1 tab PO DAILY 10/27/22 10/27/22 Cyanocobalamin (Vitamin B-12) 1 tab PO DAILY 10/27/22 10/27/22 [Vitamin B-12] Glucosamine HCl/Chondroitin Alvarez 1 tab PO DAILY 10/27/22 10/27/22 [Glucosamine-Chondroitin Cap] Guanfacine HCl [Intuniv] 1 tab PO HS 10/27/22 10/27/22 Multivitamin W/Minerals [Theragran 1 tab PO DAILY 10/27/22 10/27/22 M] Panax, Iraqi Ginsg/B12/Royl 1 cap PO DAILY 10/27/22 10/27/22 [Ginseng Complex Capsule] Pyridoxine HCl (Vitamin B6) 1 tab PO DAILY 10/27/22 10/27/22 [Pyridoxine HCl] Sumatriptan Succinate [Imitrex] 1 tab PO DAILY PRN MDD 200 10/27/22 10/27/22 clonazePAM [Clonazepam] 1 tab PO QID PRN 10/27/22 10/27/22 hydrOXYzine HCL [Hydroxyzine HCl] 1 tab PO DAILY PRN 10/27/22 10/27/22 traMADol [Ultram] 1 tab PO QID PRN 10/27/22 10/27/22 Acetaminophen [Tylenol] 650 mg PO Q4HR PRN tab 10/28/22 FLUoxetine [PROzac] 60 mg PO DAILY cap 10/28/22 Insulin Lispro [Humalog Kwikpen 1 - 9 unit SUBQ 10/28/22 U-100] 0800,1200,1700,2100 ml Oxymetazoline HCl [Afrin] 2 sprays TRUDI BID PRN each 10/28/22 Pantoprazole [Protonix] 40 mg PO DAILY #60 tablet 10/28/22 QUEtiapine [SEROquel] 50 mg PO BID tab 10/28/22 buPROPion [Wellbutrin Xl] 300 mg PO DAILY tab 10/28/22 tiZANidine [Zanaflex] 2 mg PO TID PRN tab 10/28/22 Benzocaine/Menthol [Cepacol Sore 1 each MM Q6HR #30 lozenge 01/25/23 Throat Lozenge] Ondansetron Odt [Zofran] 4 mg TL Q6H PRN #10 tablet 01/25/23 Meloxicam [Mobic] 7.5 mg PO BID PRN #20 tablet 02/24/23 - Allergies Allergies/Adverse Reactions: Allergies Allergy/AdvReac Type Severity Reaction Status Date / Time No Known Drug Allergies Allergy Verified 07/26/23 18:24 Review of Systems - All Other Systems All Other Systems: reports: Reviewed and negative Exam - Vital Signs Reviewed Vital Signs: Yes Vital Signs: Vital Signs x48h Temp Pulse Resp BP Pulse Ox 07/26/23 18:24 36.6 C 110 H 20 132/77 H 97 - Physical Exam General Appearance: positive: No acute distress, Alert Eyes Bilateral: positive: EOMI, No scleral icterus ENT: positive: Dry mucous membranes Respiratory: positive: Other (Access cart stethoscope not working; per ER Provider: CTA B/L) Cardiovascular: positive: Other (Access cart stethoscope not working; per ER Provider: RR, Tachy, no murmurs) Abdomen: positive: Other (per ER Provider: non-distended, NT, Soft) Extremities: positive: Other (per ER Provider: moves all extrem, no edema) Neurologic/Psychiatric: positive: Oriented x3, Mood/affect nml, Other (per ER Provider: NFD) Conclusion/Plan - Problem List (1) DKA (diabetic ketoacidosis) Conclusion/Plan: DKA DM type 1 (dx'd at age 16 yo) with h/o DKA Leukocytosis Tachycardia Nausea Decreased PO intake GLADYS Low Magnesium -HR 110-140s, WBC 19.8, pH 7.284, Na 133, CO2 15, AG 25, CR 1.4 (baseline 0.8), Glc 427, Mg 1.6, s.ketones +, HCG pending, U/A pending -Pt was given IVF with K, Mag 2 gm IV, Dilaudid, Insulin gtt in the ER. -admit to ICU -continue IVF -continue Insulin drip -check BMPs q2-4h until AG clears -anti-emetics PRN -hold home medications: Lantus, SS Humalog -check Hgba1c -Clear liquid diet -avoid nephrotoxins -supplement K and Mg PRN -CXR ordered -F/U HCG, U/A, CXR -DM education (pt needs DM education prior to insurance approving her to have a Dexcom) -SW consult (to help pt get Dexcom and new accucheck machine, as hers is lost) URI Sore throat -symptoms improving per pt -continue symptomatic medications PRN Anxiety/PTSD, -continue home medications: Prozac, Clonazepam, Wellbutrin, Seroquel, Guafacine Fibromyalgia/Chronic pain/Scoliosis/LBP -Morphine PRN d/t sore throat/current intolerance of PO medications -continue home medications: Tramadol, Zanaflex GERD -continue home medications: PPI VTE Prophylaxis: Lovenox Code Status: Full Code ~Collette Barrientos MD Hospitalist - Lab Results Lab results reviewed: Yes Fish Bones: 07/26/23 18:42 07/26/23 18:42
[2023-07-26] MEDS: MAGNESIUM SULFATE 2 GRAM 2 GM/50 ML BAG IV ONE (20:17)
[2023-07-26] MEDS: NS W/20 MEQ KCL 1,000 ML IV STA (20:17)
[2023-07-26] MEDS: INSULIN REGULAR IN 0.9 % NS 100 UNIT/100 ML BAG IV SCH (20:20)
[2023-07-26] MEDS ORDERED: clonazePAM 0.5 MG TABLET PO PRN (20:42)
[2023-07-26] MEDS ORDERED: hydrOXYzine PAMOATE 25 MG CAPSULE PO PRN (20:45)
[2023-07-26 20:51] LABS: CALCIUM 9.5 mg/dL (8.5-10.3); POTASSIUM 4.2 mmol/L (3.5-4.5)
[2023-07-26] MEDS ORDERED: NS W/20 MEQ KCL 1,000 ML IV SCH (21:00)
[2023-07-26] MEDS: GUANFACINE HCL 2 MG PO SCH (21:24)
[2023-07-26] MEDS: QUEtiapine 25 MG TABLET PO SCH (21:24)
[2023-07-26 21:45] LABS: BILIRUBIN,URINE MODERATE (NEGATIVE); GLUCOSE, URINE (UA) 500 mg/dL (NEGATIVE); KETONES,URINE (UA) >=80 mg/dL (NEGATIVE); LEUKOCYTE ESTERASE, URINE NEGATIVE (NEGATIVE); NITRITE,URINE NEGATIVE (NEGATIVE); OCCULT BLOOD,URINE TRACE-INTA (NEGATIVE); PH,URINE 5.5 PH (5.0-7.5); PROTEIN,URINE NEGATIVE (NEGATIVE); UROBILINOGEN,URINE 0.2 (NORMAL) E.U./dL (NORMAL)
[2023-07-26 21:50] LABS: CALCIUM, IONIZED 1.16 mmol/L (1.15-1.33); VBG PH 7.337 (7.31-7.41)
[2023-07-26 21:50] LABS: CLARITY,URINE CLEAR (CLEAR)
[2023-07-26 21:53] LABS: HCG UR QUAL NEGATIVE
[2023-07-26] MEDS: NS W/20 MEQ KCL 1,000 ML IV SCH (21:56)
--- NOTE | 2023-07-26 21:57 | XRAY Report ---
PROCEDURE: Chest 1V INDICATIONS: Shortness of breath TECHNIQUE: One view of the chest was acquired. COMPARISON: 02/20/2022 FINDINGS: Surgical changes and devices: None. Lungs and pleura: No pleural effusions or pneumothorax. Lungs are clear. Mediastinum: Mediastinal contours appear normal. Heart size is normal. Bones and chest wall: No suspicious bony lesions. Overlying soft tissues appear unremarkable. IMPRESSION: Chest without acute cardiopulmonary abnormalities or focal airspace disease. Reviewed by: Dontae Ritter MD on 07/26/2023 9:55 PM PDT Approved by: Dontae Ritter MD on 07/26/2023 9:55 PM PDT Station ID: [id number]
[2023-07-26 21:59] LABS: CALCIUM 9.9 mg/dL (8.5-10.3); CREATININE 1.1 mg/dL (0.6-1.3)
[2023-07-26] MEDS: ONDANSETRON 4 MG/2 ML VIAL IVP PRN (22:19)
[2023-07-26] MEDS: cloNIDine 0.1 MG TABLET PO SCH (22:19)
[2023-07-26] MEDS: BENZOCAINE/MENTHOL LOZENGE MM SCH (22:19)
[2023-07-26] MEDS: MORPHINE 2 MG/ML CARPUJECT IVP PRN (22:20)
[2023-07-26] MEDS: D5NS W/20 MEQ KCL 1,000 ML IV SCH (22:20)
[2023-07-26] MEDS: ALPRAZolam 0.25 MG TABLET PO PRN (22:20)
[2023-07-26] MEDS: SODIUM CHLORIDE FLUSH 0.9% 10 ML SYRINGE IVP SCH (23:46)
[2023-07-27 01:33] LABS: CALCIUM 8.9 mg/dL (8.5-10.3); CREATININE 0.9 mg/dL (0.6-1.3); POTASSIUM 4.2 mmol/L (3.5-4.5)
[2023-07-27 05:51] LABS: BASOPHILS # (AUTO) 0.1 10^3/uL (0.0-0.1); BASOPHILS % (AUTO) 0.6 %; EOSINOPHILS # (AUTO) 0.1 10^3/uL (0.0-0.7); EOSINOPHILS % (AUTO) 1.3 %; HCT - HEMATOCRIT 32.7 % (37.0-47.0); HGB - HEMOGLOBIN 11.1 g/dL (12.0-16.0); LYMPHOCYTES # (AUTO) 4.4 10^3/uL (1.5-3.5); LYMPHOCYTES % (AUTO) 44.9 %; MEAN CORPUSCULAR HEMOGLOBIN 30.5 pg (27.0-31.0); MEAN CORPUSCULAR HGB CONC 33.9 g/dL (32.0-36.0); MEAN CORPUSCULAR VOLUME 89.8 fL (81.0-99.0); MONOCYTES # (AUTO) 0.8 10^3/uL (0.0-1.0); MONOCYTES % (AUTO) 8.4 %; NEUTROPHILS # (AUTO) 4.3 10^3/uL (1.5-6.6); PLT - PLATELET COUNT 358 10^3/uL (130-450); RED BLOOD COUNT 3.64 10^6/uL (4.20-5.40); RED CELL DISTRIBUTION WIDTH 11.9 % (12.0-15.0); WHITE BLOOD COUNT 9.8 x10^3/uL (4.8-10.8)
[2023-07-27 06:08] LABS: CALCIUM 8.6 mg/dL (8.5-10.3); CREATININE 0.8 mg/dL (0.6-1.3); MAGNESIUM 1.9 mg/dL (1.7-2.3)
[2023-07-27 08:07] LABS: ESTIMATED AVERAGE GLUCOSE 180 mg/dL (70-100); HEMOGLOBIN A1c% 7.9 % (4.27-6.07)
[2023-07-27] MEDS: FLUoxetine 10 MG CAPSULE PO SCH (08:31)
[2023-07-27] MEDS: buPROPion XL 150 MG TABLET PO SCH (08:35)
[2023-07-27] MEDS: CHOLECALCIFEROL 25 MCG TABLET PO SCH (08:35)
[2023-07-27] MEDS: CYANOCOBALAMIN 500 MCG TABLET PO SCH (08:35)
[2023-07-27] MEDS: INSULIN GLARGINE-YFGN 300 UNIT/3 ML PEN SUBQ SCH ×2 (08:38→20:49)
[2023-07-27] MEDS ORDERED: CHONDROITIN PO SCH (09:00)
[2023-07-27] MEDS ORDERED: GLUCOSAMINE PO SCH (09:00)
[2023-07-27] MEDS ORDERED: [UNRECOGNIZED DRUG - MIXTURE] PO SCH (09:00)
[2023-07-27] MEDS ORDERED: NON FORMULARY MED (Cranberry Fruit Extract [Cranberry] 500 MG Tablet) PO SCH (09:00)
[2023-07-27] MEDS ORDERED: [UNRECOGNIZED DRUG - OTHER] PO SCH (09:00)
[2023-07-27] MEDS: PYRIDOXINE 100 MG TABLET PO SCH (09:13)
[2023-07-27] MEDS: INSULIN LISPRO 300 UNIT/3 ML PEN SUBQ SCH ×2 (09:20→10:11)
[2023-07-27] MEDS: ENOXAPARIN 40 MG/0.4 ML SYRINGE SUBQ SCH (09:37)
[2023-07-27] MEDS: MULTIVITAMIN W/MINERALS TABLET PO SCH (09:54)
[2023-07-27] MEDS: PANTOPRAZOLE 40 MG TABLET PO SCH (09:55)
--- NOTE | 2023-07-27 10:58 | PHARMACY PROGRESS NOTE ---
- Best Possible Medication History Admit Date and Time: 07/26/232002 Processed by: Pharmacy Medications reviewed in ED?: Yes Medication History completed: Yes Patient Interview: Completed Secondary Source(s): Physician records, Pharmacy records, Insurance records (MED LIST UPDATED. PATIENT REPORTS NO LONGER TAKING BUPROPRION, CLONAZEPAM, FLUOXETINE, MELOXICAM, AFRIN NASAL SPRAY, AND QUETIAPINE.) As the person ultimately responsible for medication therapy, providers are able to order a medication from an existing home medication list in [facility] via the "Reconcile Routine" prior to Confirmation of that medication by software support representative. Such practice is discouraged except when the physician, in their clinical judgment, deems that a medical need exists for a medication without regard to previous use.
[2023-07-27] MEDS: tiZANidine 4 MG TABLET PO PRN ×2 (11:12→23:34)
[2023-07-27] MEDS: ONDANSETRON ODT 4 MG TABLET TL PRN (11:34)
--- NOTE | 2023-07-27 14:59 | PROVIDER PROGRESS NOTE ---
Assessment/Plan - Problem List (1) DKA (diabetic ketoacidosis) Qualifiers: Diabetes mellitus type: type 1 Diabetes mellitus complication detail: without coma Qualified Code(s): E10.10 - Type 1 diabetes mellitus with ketoacidosis without coma Assessment/Plan: is a 28 year old female with a PMH of DM type 1 (dx'd at age 16 yo) on lantus and humalog with h/o DKA, Anxiety/PTSD, Fibromyalgia/Chronic pain/Scoliosis/LBP and GERD who was presented to the ED from urgent care yesterday for high blood sugar, nausea, and epigastric pain. She denies vomiting, chest pain, cough, fever, dysuria. On 07/18 when she was seen for a sore throat and given antibiotics and steroids, which she started on 07/22/23. On 07/22 she lost her accucheck machine and has been unable to measure her blood sugar since. She reports that she hadn't been able to eat since 07/18 due to a sore throat but continued to take her insulin at a decreased dose. On 07/24 she started to feel weak with difficulty walking, heart racing, dyspnea on exertion, nausea, epigastric pain, anorexia and couldn't check her blood sugar so she went to urgent care where BS >500 and she was sent to the ED. In the ED yesterday HR 110-140s, WBC 19.8, pH 7.284, Na 133, CO2 15, AG 25, CR 1.4, Glc 427, Mg 1.6, s.ketones +, HCG negative. Pt was given IVF with K, Mag 2 gm IV, Dilaudid, Insulin gtt in the ER. She was admitted to the ICU for further management of her DKA. Today: HR (100), WBC (9.8), Na (138), CO2 (22), Createnine (0.8), BUN (19), Mg (1.9) have all improved. Potassium remained stable at 4.0. Glucose was elevated at 129 earlier today, and 66 this evening. Her A1c came back at 7.9 showing poor management of diabetes. Her CXR was unremarkable. Labs today showed new anemia with RBC 3.64, Hgb 11.1, Hct 32.7. Labs today also showed Anion Gap that is now low at 5.0 which may be due to lab error and will be re-checked per up-to-date recommendations. pH and Ketones have not been checked since yesterday. Today we transitioned her off of insulin drip and onto Lantus 10 units in the am and plan to give her 40 units in pm. She has also been given 5 units of Lispro plus sliding scale with meals. Due to hypoglycemia she will not recieve Lispro or sliding scale insulin tonight and we will only give her 20 units of Lantus tonight. Will plan to resume 40 pm units tomorrow if BS is stable. Patient reports that she is feeling better today. She states breathing and sore throat has improved. She admits to some continued nausea and indigestion but no vomiting. She has tolerated PO foods well. On exam she appeared slight shaky with a lip quiver while talking. She states she was feeling OK and probably cold but Blood sugar was 66 when checked. This shows she likely has poor self awareness regarding her blood sugar and would benefit from a continuous glucose monitor and insulin pump. She hopes to get approved for a Dexacom and states social work has been helping her with this. She is requesting a letter for the court as she missed her court appointment today for a reckless driving charge due to admission. Plan: Will provide patient with letter for court, Re-check anion gap, Transition off of insulin drip and start Lantus and Lispro (will hold 5 units lispro and sliding scale insulin this evening and only give 20 units of Lantus this evening due to hypoglycemia). Start carb-controlled diet. Continue IV fluids and continue antiemetics prn. Continue to monitor CBC, CMP. Patient would benefit from diabetes education course after discharge. Will consider discharging patient tomorrow if anion gap has improved, she is tolerating PO fluids and electrolytes remain stable. - Current Meds Current Meds: Current Medications Generic Name Dose Route Start Last Admin Trade Name Freq PRN Reason Stop Dose Admin Alprazolam 1 mg 07/26/23 21:30 07/27/23 12:33 Alprazolam 0.25 Mg Tablet PO 1 mg Q6HR PRN Administration Anxiety Cholecalciferol 25 mcg 07/27/23 09:00 07/27/23 08:35 Cholecalciferol 25 Mcg Tablet PO 25 mcg DAILY ALINE Administration Clonidine HCl 0.2 mg 07/26/23 21:40 07/26/23 22:19 Clonidine 0.1 Mg Tablet PO 0.2 mg QPM [facility] Administration Cyanocobalamin 500 mcg 07/27/23 09:00 07/27/23 08:35 Cyanocobalamin 500 Mcg Tablet PO 500 mcg DAILY [facility] Administration Enoxaparin Sodium 40 mg 07/27/23 09:00 07/27/23 09:37 Enoxaparin 40 Mg/0.4 Ml Syringe SUBQ 40 mg DAILY [facility] Administration Insulin Glargine-yfgn 20 unit 07/27/23 08:00 07/27/23 08:38 Insulin Glargine-Yfgn 300 Unit/3 Ml Pen SUBQ 20 unit QDBREAKFAST [facility] Administration Insulin Human Lispro 5 unit 07/27/23 08:00 07/27/23 11:59 Insulin Lispro 300 Unit/3 Ml Pen SUBQ 5 unit TIDWM [facility] Administration Protocol Insulin Human Lispro 1 - 5 unit 07/27/23 08:00 07/27/23 11:54 Insulin Lispro 300 Unit/3 Ml Pen SUBQ 2 unit 0800,1200,1700,2100 [facility] Administration Protocol Morphine Sulfate 2 mg 07/26/23 20:03 07/27/23 09:48 Morphine 2 Mg/Ml Carpuject IVP 2 mg Q4HR PRN Administration Pain 8 to 10 Multivitamins/Minerals 1 tab 07/27/23 09:00 07/27/23 09:54 Multivitamin W/Minerals Tablet PO 1 tab DAILY [facility] Administration Ondansetron HCl 4 mg 07/26/23 20:03 07/27/23 11:34 Ondansetron Odt 4 Mg Tablet TL 4 mg Q6HR PRN Administration Nausea / Vomiting Ondansetron HCl 4 mg 07/26/23 20:03 07/27/23 06:44 Ondansetron 4 Mg/2 Ml Vial IVP 4 mg Q6HR PRN Administration Nausea / Vomiting Pantoprazole Sodium 40 mg 07/27/23 09:00 07/27/23 09:55 Pantoprazole 40 Mg Tablet PO 40 mg DAILY [facility] Administration Pyridoxine HCl 25 mg 07/27/23 09:00 07/27/23 09:13 Pyridoxine 100 Mg Tablet PO 25 mg DAILY [facility] Administration Sodium Chloride 10 ml 07/27/23 01:00 07/27/23 12:13 Sodium Chloride Flush 0.9% 10 Ml Syringe IVP 10 ml 0100,0900,1700 ALINE Administration Throat Lozenges 1 lozenge 07/26/23 21:00 07/27/23 05:52 Benzocaine/Menthol Lozenge MM 1 lozenge Q6HR ALINE Administration - Lab Result Fish Bone Diagrams: 07/27/23 05:41 07/27/23 05:41 Subjective - Subjective Patient Reports: Feeling Better, Nausea Objective Vital Signs: Vital Signs - 24 hr 07/26/23 07/26/23 07/26/23 18:24 19:30 20:00 Temperature 36.6 C Heart Rate 110 H 123 H 128 H Heart Rate [ Monitoring electrodes] Respiratory 20 16 Rate Blood Pressure 132/77 H 119/70 107/69 Blood Pressure [Left Brachial artery] Blood Pressure [Right Brachial artery] O2 Saturation 97 99 100 07/26/23 07/26/23 07/26/23 20:30 21:43 22:00 Temperature 36.9 C Heart Rate 121 H Heart Rate [ 135 H 120 H Monitoring electrodes] Respiratory 15 19 16 Rate Blood Pressure Blood Pressure [Left Brachial artery] Blood Pressure 126/73 112/66 [Right Brachial artery] O2 Saturation 98 95 96 07/26/23 07/27/23 07/27/23 23:00 01:00 03:00 Temperature Heart Rate Heart Rate [ 115 H 99 105 H Monitoring electrodes] Respiratory 12 11 L 21 Rate Blood Pressure Blood Pressure [Left Brachial artery] Blood Pressure 108/63 97/52 L 89/62 L [Right Brachial artery] O2 Saturation 95 95 96 07/27/23 07/27/23 07/27/23 05:00 07:00 09:00 Temperature 36.7 C Heart Rate Heart Rate [ 92 105 H 106 H Monitoring electrodes] Respiratory 12 18 16 Rate Blood Pressure Blood Pressure [Left Brachial artery] Blood Pressure 103/59 L 107/56 L 123/76 [Right Brachial artery] O2 Saturation 95 96 98 07/27/23 07/27/23 11:00 13:00 Temperature 36.7 C Heart Rate Heart Rate [ 102 H 99 Monitoring electrodes] Respiratory 12 12 Rate Blood Pressure Blood Pressure 113/65 104/73 [Left Brachial artery] Blood Pressure [Right Brachial artery] O2 Saturation 98 97 Oxygen O2 Source Room air I&O (Last 24 Hrs): Intake and Output Totals x24h 07/25/23 07/26/23 07/27/23 23:59 23:59 23:59 Intake Total 692.067 3541.238 Output Total 275 Balance -22.268 3775.238 General: Alert, Oriented x3, Cooperative, No acute distress, Other (Patient's lip was quivering for the first 20 minutes of evaluation but no shakiness of hands or legs.) HEENT: Atraumatic, PERRLA, EOMI, Mucous membr. moist/pink, Other (mild pharyngeal erythema with no exudate. Uvula not deviated. Moderate dental decay.) Neck: Supple, No LAD Lymphatic: no adenopathy Neuro: Alert, CN 2-12 Grossly Intact, Oriented Times 3 Cardiovascular: Regular rate, Normal S1, Normal S2, No murmurs Respiratory: Chest non-tender, No respiratory distress, Breath sounds nml Abdomen: Normal bowel sounds, Soft, No tenderness, No hepatospenomegaly Extremities: No clubbing, No cyanosis, No edema, Normal pulses Skin: No rashes - Results Results: Laboratory Results WBC 9.8 x10^3/uL (4.8-10.8) 07/27/23 05:41 RBC 3.64 10^6/uL (4.20-5.40) L 07/27/23 05:41 Hgb 11.1 g/dL (12.0-16.0) L 07/27/23 05:41 Hct 32.7 % (37.0-47.0) L 07/27/23 05:41 MCV 89.8 fL (81.0-99.0) 07/27/23 05:41 MCH 30.5 pg (27.0-31.0) 07/27/23 05:41 MCHC 33.9 g/dL (32.0-36.0) 07/27/23 05:41 RDW 11.9 % (12.0-15.0) L 07/27/23 05:41 Plt Count 358 10^3/uL (130-450) 07/27/23 05:41 MPV 9.0 fL (7.9-10.8) 07/27/23 05:41 Neut # (Auto) 4.3 10^3/uL (1.5-6.6) 07/27/23 05:41 Lymph # (Auto) 4.4 10^3/uL (1.5-3.5) H 07/27/23 05:41 [place] # (Auto) 0.8 10^3/uL (0.0-1.0) 07/27/23 05:41 Eos # (Auto) 0.1 10^3/uL (0.0-0.7) 07/27/23 05:41 Baso # (Auto) 0.1 10^3/uL (0.0-0.1) 07/27/23 05:41 Absolute Nucleated RBC 0.00 x10^3/uL 07/27/23 05:41 Nucleated RBC % 0.0 /100WBC 07/27/23 05:41 VBG pH 7.337 (7.31-7.41) 07/26/23 21:36 VBG pCO2 31.7 mmHg (41-51) L 07/26/23 18:42 VBG pO2 44.6 mmHg (25-47) 07/26/23 18:42 VBG HCO3 14.7 mmol/L (23-28) L 07/26/23 18:42 VBG Total CO2 15.7 mmol/L (24-29) L 07/26/23 18:42 VBG O2 Saturation 79.3 % (60-80) 07/26/23 18:42 VBG Base Excess -10.6 mmol/L (-2 - +2) L 07/26/23 18:42 Ionized Calcium 1.16 mmol/L (1.15-1.33) 07/26/23 21:36 Sodium 138 mmol/L (135-145) 07/27/23 05:41 Potassium 4.0 mmol/L (3.5-4.5) 07/27/23 05:41 Chloride 111 mmol/L (101-111) 07/27/23 05:41 Carbon Dioxide 22 mmol/L (21-32) 07/27/23 05:41 Anion Gap 5.0 (6-13) L 07/27/23 05:41 BUN 19 mg/dL (6-20) 07/27/23 05:41 Creatinine 0.8 mg/dL (0.6-1.3) 07/27/23 05:41 Estimated GFR (MDRD) 85 (>89) L 07/27/23 05:41 Glucose 129 mg/dL (74-104) H 07/27/23 05:41 POC Whole Bld Glucose 191 mg/dL (70 - 100) H 07/27/23 11:49 Estimat Average Glucose 180 mg/dL (70-100) H 07/27/23 05:41 Hemoglobin A1c % 7.9 % (4.27-6.07) H 07/27/23 05:41 Calcium 8.6 mg/dL (8.5-10.3) 07/27/23 05:41 Phosphorus 3.4 mg/dL (2.5-5.0) 07/26/23 20:21 Magnesium 1.9 mg/dL (1.7-2.3) 07/27/23 05:41 Total Bilirubin 0.6 mg/dL (0.2-1.0) 07/26/23 18:42 AST 14 IU/L (10-42) 07/26/23 18:42 ALT 13 IU/L (10-60) 07/26/23 18:42 Alkaline Phosphatase 110 IU/L (42-121) 07/26/23 18:42 Total Protein 8.7 g/dL (6.4-8.9) 07/26/23 18:42 Albumin 5.2 g/dL (3.2-5.5) 07/26/23 18:42 Globulin 3.5 g/dL (2.1-4.2) 07/26/23 18:42 Albumin/Globulin Ratio 1.5 (1.0-2.2) 07/26/23 18:42 Urine Color YELLOW 07/26/23 21:00 Urine Clarity CLEAR (CLEAR) 07/26/23 21:00 Urine pH 5.5 PH (5.0-7.5) 07/26/23 21:00 Ur Specific [place] >=1.030 (1.002-1.030) H 07/26/23 21:00 Urine Protein NEGATIVE mg/dL (NEGATIVE) 07/26/23 21:00 Urine Glucose (UA) 500 mg/dL (NEGATIVE) H 07/26/23 21:00 Urine Ketones >=80 mg/dL (NEGATIVE) H 07/26/23 21:00 Urine Occult Blood TRACE-INTA (NEGATIVE) 07/26/23 21:00 Urine Nitrite NEGATIVE (NEGATIVE) 07/26/23 21:00 Urine Bilirubin MODERATE (NEGATIVE) H 07/26/23 21:00 Urine Urobilinogen 0.2 (NORMAL) E.U./dL (NORMAL) 07/26/23 21:00 Ur Leukocyte Esterase NEGATIVE (NEGATIVE) 07/26/23 21:00 Ur Microscopic Review NOT INDICATED 07/26/23 21:00 Urine Culture Comments NOT INDICATED 07/26/23 21:00 Urine HCG, Qual NEGATIVE 07/26/23 21:00 Nasal Screen MRSA (PCR) NEGATIVE (NEGATIVE) 07/26/23 21:10 Serum Ketones MODERATE (NEGATIVE) H 07/26/23 18:42 Current Medications - Current Medications Current Medications: Active Medications Acetaminophen (Acetaminophen 325 Mg Tablet) 650 mg PO Q4HR PRN PRN Reason: Pain or Fever > 38C (100.4F) Alprazolam (Alprazolam 0.25 Mg Tablet) 1 mg PO Q6HR PRN PRN Reason: Anxiety Last Admin: 07/27/23 12:33 Dose: 1 mg Cholecalciferol (Cholecalciferol 25 Mcg Tablet) 25 mcg PO DAILY [facility] Last Admin: 07/27/23 08:35 Dose: 25 mcg Clonidine HCl (Clonidine 0.1 Mg Tablet) 0.2 mg PO QPM [facility] Last Admin: 07/26/23 22:19 Dose: 0.2 mg Cyanocobalamin (Cyanocobalamin 500 Mcg Tablet) 500 mcg PO DAILY [facility] Last Admin: 07/27/23 08:35 Dose: 500 mcg Enoxaparin Sodium (Enoxaparin 40 Mg/0.4 Ml Syringe) 40 mg SUBQ DAILY [facility] Last Admin: 07/27/23 09:37 Dose: 40 mg Hydroxyzine Pamoate (Hydroxyzine Pamoate 25 Mg Capsule) 25 mg PO DAILY PRN PRN Reason: Anxiety Insulin Glargine-yfgn (Insulin Glargine-Yfgn 300 Unit/3 Ml Pen) 20 unit SUBQ QDBREAKFAST [facility] Last Admin: 07/27/23 08:38 Dose: 20 unit Insulin Glargine-yfgn (Insulin Glargine-Yfgn 300 Unit/3 Ml Pen) 40 unit SUBQ QPM ALINE Insulin Human Lispro (Insulin Lispro 300 Unit/3 Ml Pen) 5 unit SUBQ TIDWM [facility]; Protocol Last Admin: 07/27/23 11:59 Dose: 5 unit Insulin Human Lispro (Insulin Lispro 300 Unit/3 Ml Pen) 1 - 5 unit SUBQ 0800,1200,1700,2100 [facility]; Protocol Last Admin: 07/27/23 11:54 Dose: 2 unit Morphine Sulfate (Morphine 2 Mg/Ml Carpuject) 2 mg IVP Q4HR PRN PRN Reason: Pain 8 to 10 Last Admin: 07/27/23 09:48 Dose: 2 mg Multivitamins/Minerals (Multivitamin W/Minerals Tablet) 1 tab PO DAILY [facility] Last Admin: 07/27/23 09:54 Dose: 1 tab Ondansetron HCl (Ondansetron Odt 4 Mg Tablet) 4 mg TL Q6HR PRN PRN Reason: Nausea / Vomiting Last Admin: 07/27/23 11:34 Dose: 4 mg Ondansetron HCl (Ondansetron 4 Mg/2 Ml Vial) 4 mg IVP Q6HR PRN PRN Reason: Nausea / Vomiting Last Admin: 07/27/23 06:44 Dose: 4 mg Pantoprazole Sodium (Pantoprazole 40 Mg Tablet) 40 mg PO DAILY [facility] Last Admin: 07/27/23 09:55 Dose: 40 mg Pyridoxine HCl (Pyridoxine 100 Mg Tablet) 25 mg PO DAILY [facility] Last Admin: 07/27/23 09:13 Dose: 25 mg Sodium Chloride (Sodium Chloride Flush 0.9% 10 Ml Syringe) 10 ml IVP 0100,090 0,1700 [facility] Last Admin: 07/27/23 12:13 Dose: 10 ml Sodium Chloride (Sodium Chloride Flush 0.9% 10 Ml Syringe) 10 ml IVP PRN PRN PRN Reason: NEEDED PER PROVIDER ORDERS Sumatriptan Succinate (Sumatriptan 25 Mg Tablet) 100 mg PO DAILY PRN PRN Reason: MIGRAINE Throat Lozenges (Benzocaine/Menthol Lozenge) 1 lozenge MM Q6HR [facility] Last Admin: 07/27/23 05:52 Dose: 1 lozenge Tizanidine HCl (Tizanidine 4 Mg Tablet) 4 mg PO TID PRN PRN Reason: Spasms Tramadol HCl (Tramadol 50 Mg Tablet) 50 mg PO QID PRN PRN Reason: PAIN 1-4 Insulin Glargine [Lantus Solostar] 45 unit SQ HS 03/23/21 Insulin Lispro [Humalog Kwikpen U-100] See Rx Instructions .ROUTE .COMPLEX 03/23/21 Cholecalciferol [Vitamin D3] 25 mcg PO DAILY 10/27/22 Cranberry Fruit Extract [Cranberry] 500 mg PO DAILY 10/27/22 Cyanocobalamin (Vitamin B-12) [Vitamin B-12] 500 mcg PO DAILY 10/27/22 Glucosamine HCl/Chondroitin Alvarez [Glucosamine-Chondroitin Cap] 1 cap PO DAILY 10/27/22 Guanfacine HCl [Intuniv] 2 mg PO HS 10/27/22 Multivitamin W/Minerals [Theragran M] 1 tab PO DAILY 10/27/22 Panax, [place] Ginsg/B12/Royl [Ginseng Complex Capsule] 1 cap PO DAILY 10/27/22 Pyridoxine HCl (Vitamin B6) [Pyridoxine HCl] 25 mg PO DAILY 10/27/22 Sumatriptan Succinate [Imitrex] 100 mg PO DAILY PRN MDD 200 10/27/22 hydrOXYzine HCL [Hydroxyzine HCl] 25 mg PO DAILY PRN 10/27/22 traMADol [Ultram] 50 mg PO QID PRN 10/27/22 Alprazolam [Xanax] 1 mg PO TID 07/27/23 Dextroamphetamine/Amphetamine [Adderall Xr 10 mg Capsule] 20 mg PO DAILY 07/27/23 Escitalopram [Lexapro] 10 mg PO DAILY 07/27/23 Oxycodone HCl [Roxybond] 5 mg PO Q6H PRN 07/27/23 [facility]'s Wort 300 mg PO DAILY 07/27/23 cloNIDine [Catapres] 0.2 mg PO QPM 07/27/23 tiZANidine [Zanaflex] 4 mg PO TID PRN 07/27/23
[2023-07-27] MEDS: SUMAtriptan 25 MG TABLET PO PRN (23:26)
[2023-07-28 04:35] LABS: CALCIUM, IONIZED 1.14 mmol/L (1.15-1.33); VBG PH 7.396 (7.31-7.41)
[2023-07-28 04:36] LABS: BASOPHILS % (AUTO) 0.6 %; EOSINOPHILS # (AUTO) 0.1 10^3/uL (0.0-0.7); EOSINOPHILS % (AUTO) 1.8 %; HCT - HEMATOCRIT 29.6 % (37.0-47.0); HGB - HEMOGLOBIN 10.4 g/dL (12.0-16.0); LYMPHOCYTES # (AUTO) 3.2 10^3/uL (1.5-3.5); LYMPHOCYTES % (AUTO) 51.8 %; MEAN CORPUSCULAR HGB CONC 35.1 g/dL (32.0-36.0); MEAN CORPUSCULAR VOLUME 88.4 fL (81.0-99.0); MEAN PLATELET VOLUME 9.1 fL (7.9-10.8); MONOCYTES # (AUTO) 0.5 10^3/uL (0.0-1.0); NEUTROPHILS # (AUTO) 2.3 10^3/uL (1.5-6.6); NEUTROPHILS % (AUTO) 37.2 %; PLT - PLATELET COUNT 279 10^3/uL (130-450); RED BLOOD COUNT 3.35 10^6/uL (4.20-5.40); WHITE BLOOD COUNT 6.2 x10^3/uL (4.8-10.8)
[2023-07-28] MEDS: SODIUM CHLORIDE FLUSH 0.9% 10 ML SYRINGE IVP PRN (04:42)
[2023-07-28 04:48] LABS: MAGNESIUM 1.8 mg/dL (1.7-2.3)
[2023-07-28 04:55] LABS: CALCIUM 9.3 mg/dL (8.5-10.3); CREATININE 0.6 mg/dL (0.6-1.3); POTASSIUM 3.1 mmol/L (3.5-4.5)
--- NOTE | 2023-07-28 05:38 | PROVIDER PROGRESS NOTE ---
Electronic Warfare Technical Note - Electronic Warfare Technical Note Electronic Warfare Technical Note: RN paged "FYI PT came in for DKA, Started on long acting insulin last night 40units of lantus. Pts BG was 59 at 4:15 Rechecked 4:58 and BG 78, Rechecked 5:23 and BG 116 Pt asymptomatic at this time. Per protocol, MD to be made aware of blood sugars. Will continue to monitor" recommend monitor BG throughout day and adjust. consider iv dextrose if hypoglycemic Alli Molina
[2023-07-28] MEDS: INSULIN GLARGINE-YFGN 300 UNIT/3 ML PEN SUBQ SCH (09:12)
[2023-07-28 10:22] VITALS: BP 139/95; O2SAT 98
[2023-07-28] MEDS: POTASSIUM CHLOR 10 MEQ/100 ML 10 MEQ/100 ML BAG IV SCH (10:25)
--- NOTE | 2023-07-28 10:51 | Discharge Plan ---
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 Life is very chaotic and between her diabetes, being a mom of a young child, and the who is working full-time you sometimes neglected her health. You lost her glucometer underneath your bed in the last week at the same time you were given steroids for a sore throat. You were not able to check your sugars, and most likely the steroids caused her glucose to go up. This then caused her to go in diabetic ketoacidosis. You have been treated with an intravenous insulin drip and your sugars have come down and your labs have normalized. We have resumed her home Lantus. Plan of Treatment: 1. Please see your primary care provider and your key account coordinator and follow-up in the next few days 2. I have spoken to Kim Rashid, who is a certified lactation educator here at the hospital. We are trying to get you into diabetic classes. You need diabetic classes in order to then get a Dexcom to monitor your sugars. I would recommend the next step be an insulin pump. 3. I have sent a prescription for a glucometer to the [facility] pharmacy. You need to replace the one you lost underneath your bed. Care Goals: Your goal should focus on getting your diabetes as controlled as possible. Your goal is to have an A1c of less than 7%. Diabetic complications start setting in anywhere between 10 to 15 years after the onset of diabetes. Assessment: Patient is alert, oriented to person, place, time and situation Follow-Up Care: [facility] - Diabetes Ed No Smoking: If you smoke, Please STOP! Call for help.
--- NOTE | 2023-07-28 11:03 | DISCHARGE SUMMARY ---
Discharge Summary Admit Date: 07/26/23 Discharge Date: 07/28/23 Discharging Provider: Pinky Lopez MD Primary Care Provider: Torrey Puente MD and Stephen Reyes DO Code Status: Attempt Resuscitation Condition at Discharge: Fair Discharge Disposition: 01 Home, Self Care - DIAGNOSES Discharge Diagnoses with Status of Each Condition: 1. Diabetic ketoacidosis 2. Type 1 diabetes mellitus, uncontrolled with hyperglycemia, with long-term use of insulin 2. URI 3. PTSD with anxiety 4. Chronic pain due to fibromyalgia and scoliosis and low back pain 5. GERD - HPI History of Present Illness: 28 yo F with PMH of DM type 1 (dx'd at age 16 yo) with h/o DKA, Anxiety/PTSD, Fibromyalgia/Chronic pain/Scoliosis/LBP, GERD presented to the ER from for high BS today. Pt began to have sore throat on 07/19/23/1 week ago. +weakness. +decreased PO intake d/t sore throat. She went to . Her strep test was negative. She was given prescriptions for antibiotics and steroids. Pt called her PCP prior to taking the steroids d/t her concerns that it would affect her BS and he told her it was okay, so she started medications on 07/22/23. On 07/23/23, her BS was 33 at 11P. She ate some candy. She also dropped her accuche ck machine and it rolled under her bed and she could not find it after that, but also did not have much energy to look for it. She was then unable to check her BS after 07/23/23. Yesterday, she felt weak and it was hard to walk. +heart racing, + SOB with activity. Today, she had to run errands/go shopping. She felt more weak and short of breath afterwards and could not check her BS, so went to Urgent Care, where her BS was >500 and they sent her to the ER. Her sore throat is much improved. She is hungry and requests a clear liquid diet. +nausea/epigastric pain, no vomiting, no CP/cough/F/C, no dysuria. Pt's is in the and she takes care of their 5 yo daughter. In the ER, HR 110-140s, WBC 19.8, pH 7.284, Na 133, CO2 15, AG 25, CR 1.4, Glc 427, Mg 1.6, s.ketones +, HCG pending Pt was given IVF with K, Mag 2 gm IV, Dilaudid, Insulin gtt in the ER. - Past Medical History Endocrine/Autoimmune: reports: Type 1 diabetes Psych: reports: Depression, Anxiety Musculoskeletal: reports: Fibromyalgia, Scoliosis MRSA Hx?: No - HOSPITAL COURSE Hospital Course: the patient was placed in the ICU for an insulin drip. Glucose was monitored every hour and she was eventually able to come off the drip after 24 hours. Transition to Lantus and sliding scale. She had 2 episodes of hypoglycemia with the regimen and Lantus was adjusted accordingly. Cause of DKA was noncompliance with insulin and glucometer. Long discussion resulted with several opportunities for improvement identified. She has difficulty accessing the medical system as a [place] dependent. Even though she is designated and EFM, in practicality, she is treated as a regular patient. So she cannot get into appointments expeditiously. She has been struggling to get her glucometer changed to a Dexcom. But in order for her to get that she needs to be in diabetic classes. She also needs help taking care of a young child at home. 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 Also states that she really cannot get any help from her family back home. She is tearful. Anxious. Needs help with anxiety as well as PTSD. Once she was off the insulin drip, On the morning of discharge she had another hypoglycemic episode to glucose 59. Asymptomatic. Quickly corrected with food. She is discharged in stable condition. I have written a prescription for a new glucometer to the [facility] pharmacy. I have also contacted agricultural extension educator Kim Rashid to see if she can get into classes quickly. From there, it is hoped that she can check off the box that is required for her to get a Dexcom. That is being worked on between her bail bondsman Dr. Reyes and her primary care provider Dr. Puente. Exam at discharge had a temperature of 36.9. Heart rate 90. Blood pressure 139/95. Respirations 20 and she is 98% on room air. She is a 5 foot 3 short statured young white female with weight 70 kg. Slight facial edema but no extremity edema. Wearing glasses. Neck is supple. Lungs are clear. Regular rate and rhythm. Abdominal exam negative. Greater than 30 minutes spent coordinating discharge. This document was made in part using voice recognition software. While efforts are made to proofread this document, sound alike and grammatical errors may occur. - ALLERGIES Allergies/Adverse Reactions: Allergies Allergy/AdvReac Type Severity Reaction Status Date / Time No Known Drug Allergies Allergy Verified 07/26/23 18:24 - MEDICATIONS Home Medications: Ambulatory Orders Medication Instructions Recorded Confirmed Insulin Glargine [Lantus Solostar] 45 unit SQ HS 03/23/21 07/27/23 Insulin Lispro [Humalog Kwikpen See Rx Instructions .ROUTE .COMPLEX 03/23/21 07/27/23 U-100] Cholecalciferol [Vitamin D3] 25 mcg PO DAILY 10/27/22 07/27/23 Cranberry Fruit Extract [Cranberry] 500 mg PO DAILY 10/27/22 07/27/23 Cyanocobalamin (Vitamin B-12) 500 mcg PO DAILY 10/27/22 07/27/23 [Vitamin B-12] Glucosamine HCl/Chondroitin Alvarez 1 cap PO DAILY 10/27/22 07/27/23 [Glucosamine-Chondroitin Cap] Guanfacine HCl [Intuniv] 2 mg PO HS 10/27/22 07/27/23 Multivitamin W/Minerals [Theragran 1 tab PO DAILY 10/27/22 07/27/23 M] Panax, [place] Ginsg/B12/Royl 1 cap PO DAILY 10/27/22 07/27/23 [Ginseng Complex Capsule] Pyridoxine HCl (Vitamin B6) 25 mg PO DAILY 10/27/22 07/27/23 [Pyridoxine HCl] Sumatriptan Succinate [Imitrex] 100 mg PO DAILY PRN MDD 200 10/27/22 07/27/23 hydrOXYzine HCL [Hydroxyzine HCl] 25 mg PO DAILY PRN 10/27/22 07/27/23 traMADol [Ultram] 50 mg PO QID PRN 10/27/22 07/27/23 Acetaminophen [Tylenol] 650 mg PO Q4HR PRN tab 10/28/22 07/27/23 Pantoprazole [Protonix] 40 mg PO DAILY #60 tablet 10/28/22 07/27/23 Benzocaine/Menthol [Cepacol Throat 1 each MM Q6HR #30 lozenge 10/23/23 04/23/24 15-3.6 mg Attila] Ondansetron Odt [Zofran Odt] 4 mg TL Q6H PRN #10 tablet 01/25/23 07/27/23 Alprazolam [Xanax] 1 mg PO TID 07/27/23 07/27/23 Dextroamphetamine/Amphetamine 20 mg PO DAILY 07/27/23 07/27/23 [Adderall Xr 10 mg Capsule] Escitalopram [Lexapro] 10 mg PO DAILY 07/27/23 07/27/23 Oxycodone HCl [Roxybond] 5 mg PO Q6H PRN 07/27/23 07/27/23 Nora's Wort 300 mg PO DAILY 07/27/23 07/27/23 cloNIDine [Catapres] 0.2 mg PO QPM 07/27/23 07/27/23 tiZANidine [Zanaflex] 4 mg PO TID PRN 07/27/23 07/27/23 Blood-Glucose Meter [Glucometer] 1 each MC TID #1 each 07/28/23 - LABS Result Diagrams: 07/28/23 04:15 07/28/23 04:15
[2023-07-28] MEDS: ESCITALOPRAM 10 MG TABLET PO SCH (11:35)
[2023-07-28] MEDS: POTASSIUM CHLORIDE 10 MEQ CAPSULE PO SCH (11:36)
== END 2023-07-28 16:21 | disposition home or self-care (01) | DRG 638 ==
LOC: ED 18:21 → ICU 20:03
PROVIDERS: ADMIT Internal Medicine; ATTEND Specialist
DX: E10.10 Type 1 diabetes mellitus with ketoacidosis without coma (principal); N17.9 Acute kidney failure, unspecified; J06.9 Acute upper respiratory infection, unspecified; F43.10 Post-traumatic stress disorder, unspecified; F41.9 Anxiety disorder, unspecified; M79.7 Fibromyalgia; M54.50 Low back pain, unspecified; M41.9 Scoliosis, unspecified; G89.29 Other chronic pain; K21.9 Gastro-esophageal reflux disease without esophagitis; E10.649 Type 1 diabetes mellitus with hypoglycemia without coma; D72.829 Elevated white blood cell count, unspecified; E83.42 Hypomagnesemia; Z32.02 Encounter for pregnancy test, result negative; Z75.3 Unavailability and inaccessibility of health-care facilities; Z79.4 Long term (current) use of insulin; Z79.899 Other long term (current) drug therapy; Z91.148 Patient's other noncompliance with medication regimen for other reason; Z91.199 Patient's noncompliance with other medical treatment and regimen due to unspecified reason; Z91.85 Personal history of military service
CPT/HCPCS: 36415; 71045; 80048; 80053; 81003; 81025; 82009; 82330; 82803; 83036; 83735; 84100; 85025; 87150; 93005; 96374; 99291; A9270; J1170; J1650; J1815; Q0162; 81001; 82947; 87086

== ENCOUNTER 2023-08-29 20:15 | Outpatient (CLI) | payer OTHER, MEDICAID | END 2023-08-29 20:16 | disposition critical access hospital (66) | LOC: EMS 20:15 | DX: R56.9 Unspecified convulsions (principal) | CPT/HCPCS: A0425; A0429 ==

== ENCOUNTER 2023-08-29 20:39 | Emergency (ER) | payer OTHER, MEDICAID ==
--- NOTE | 2023-08-29 21:07 | ED Physician Documentation ---
History of Present Illness - Stated complaint Stated Complaint: SZ - Chief complaint Chief Complaint: Neuro - History obtained from History obtained from: Patient - Additonal information Additional information: HPI from patient, patient's . Patient says "my says I had a seizure my sleep" (per patient). Patient is amnestic for the event. 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 He says he felt her hand brushed by his shoulder and thus turned to look at her. He noted patient was exhibiting full- body stiffening. She was not responding verbally nor following commands. He describes approximately 30 to 60 seconds of this stiffening before she then went limp. He did not witness any clonic jerking movements at any point. He called 911. By the time the medics arrived, the patient is AAOx3 and asymptomatic. Patient says the only previous seizures she has had were due to hypoglycemia. Patient denies heavy and/or regular alcohol use. She had been using fentanyl but the last use was over 10 days ago. She has been taking benzodiazepines (specifically alprazolam), but denies taking more than as prescribed, last dose taken yesterday. Review of Systems Constitutional: reports: Reviewed and negative Cardiac: reports: Reviewed and negative Respiratory: reports: Reviewed and negative GI: reports: Nausea. denies: Abdominal Pain, Vomiting : denies: Now EGA Neurologic: reports: Seizure. denies: Generalized weakness, Focal weakness, Numbness, Headache, Head injury PD PAST MEDICAL HISTORY - Past Medical History Endocrine/Autoimmune: Type 1 diabetes Psych: Depression, Anxiety Musculoskeletal: Fibromyalgia, Scoliosis - Past Surgical History Past Surgical History: No - Present Medications Home Medications: Ambulatory Orders Medication Instructions Recorded Confirmed Insulin Glargine [Lantus Solostar] 40 unit SQ HS 03/23/21 08/29/23 Insulin Lispro [Humalog Kwikpen See Rx Instructions .ROUTE .COMPLEX 03/23/21 08/29/23 U-100] Pyridoxine HCl (Vitamin B6) 25 mg PO DAILY 10/27/22 08/29/23 [Pyridoxine HCl] Sumatriptan Succinate [Imitrex] 100 mg PO DAILY PRN MDD 200 10/27/22 08/29/23 hydrOXYzine HCL [Hydroxyzine HCl] 25 mg PO DAILY PRN 10/27/22 08/29/23 traMADol [Ultram] 50 mg PO QID PRN 10/27/22 08/29/23 Ondansetron Odt [Zofran Odt] 4 mg TL Q6H PRN #10 tablet 01/25/23 08/29/23 Alprazolam [Xanax] 1 mg PO QID 07/27/23 08/29/23 Dextroamphetamine/Amphetamine 20 mg PO DAILY 07/27/23 08/29/23 [Adderall Xr 10 mg Capsule] Escitalopram [Lexapro] 10 mg PO DAILY 07/27/23 08/29/23 Oxycodone HCl [Roxybond] 5 mg PO Q6H PRN 07/27/23 08/29/23 Freeman's Wort 300 mg PO DAILY 07/27/23 08/29/23 cloNIDine [Catapres] 0.2 mg PO QPM 07/27/23 08/29/23 tiZANidine [Zanaflex] 4 mg PO TID PRN 07/27/23 08/29/23 LORazepam [Ativan] See Rx Instructions .ROUTE 08/30/23 .COMPLEX #6 tablet - Allergies Allergies/Adverse Reactions: Allergies Allergy/AdvReac Type Severity Reaction Status Date / Time No Known Drug Allergies Allergy Verified 08/29/23 20:53 - Social History Does the pt smoke?: No Smoking Status: Never smoker Does the pt drink ETOH?: No Does the pt have substance abuse?: Yes Substance Use and Type: Other - Immunizations Immunizations are current?: No - POLST Patient has POLST: No PD ED PE NORMAL - Vitals Vital signs reviewed: Yes - General General: Alert and oriented X 3, Well developed/nourished, Other (appears anxious but not tremulous) - HEENT HEENT: PERRL, EOMI, Moist mucous membranes, Other (no tongue bite/abrasion/echymosis) - Neck Neck: Supple, no meningeal sign - Cardiac Cardiac: No murmur, No gallop, No rub - Respiratory Respiratory: No respiratory distress, Clear bilaterally - Abdomen Abdomen: Soft, Non tender - Derm Derm: Normal color, Warm and dry - Neuro Neuro: Alert and oriented X 3, freedom of information officer 2-12 intact, No motor deficit, No sensory deficit, Normal speech Eye Opening: Spontaneous Motor: Obeys Commands Verbal: Oriented GCS Score: 15 PD ED PE EXPANDED - Cardiac Cardiac: Tachy, Regular Rhythm Results - Vitals Vitals: Oxygen O2 Source Room air - EKG (time done) No standard instances EKG releavant findings:: EKG personally interpreted by author of this note. Relevant findings are: Rate: Rate (enter#) (104) Rhythm: Sinus tachycardia [place]: Normal Intervals: Normal RI QRS: Normal Ischemia: Normal ST segments - Labs Labs: Laboratory Tests 08/29/23 08/29/23 08/29/23 21:40 21:52 21:52 WBC 12.9 H RBC 4.51 Hgb 13.5 Hct 38.8 MCV 86.0 MCH 29.9 MCHC 34.8 RDW 11.7 L Plt Count 385 MPV 9.5 Neut # (Auto) 10.7 H Lymph # (Auto) 1.5 Nash # (Auto) 0.6 Eos # (Auto) 0.0 Baso # (Auto) 0.1 Absolute Nucleated RBC 0.00 Nucleated RBC % 0.0 VBG pH VBG pCO2 VBG pO2 VBG HCO3 VBG Total CO2 VBG O2 Saturation VBG Base Excess Sodium Potassium Chloride Carbon Dioxide Anion Gap BUN Creatinine Estimated GFR (MDRD) Glucose POC Whole Bld Glucose Calcium Total Bilirubin AST ALT Alkaline Phosphatase Total Protein Albumin Globulin Albumin/Globulin Ratio Lipase Urine Color YELLOW Urine Clarity CLEAR Urine pH 5.5 Ur Specific [place] >=1.030 H Urine Protein TRACE Urine Glucose (UA) >=1000 H Urine Ketones 15 H Urine Occult Blood NEGATIVE Urine Nitrite NEGATIVE Urine Bilirubin NEGATIVE Urine Urobilinogen 0.2 (NORMAL) Ur Leukocyte Esterase NEGATIVE Ur Microscopic Review NOT INDICATED Urine Culture Comments NOT INDICATED Urine HCG, Qual NEGATIVE Serum Ketones MODERATE H 08/29/23 08/29/23 08/29/23 22:05 22:06 23:40 WBC RBC Hgb Hct MCV MCH MCHC RDW Plt Count MPV Neut # (Auto) Lymph # (Auto) Nash # (Auto) Eos # (Auto) Baso # (Auto) Absolute Nucleated RBC Nucleated RBC % VBG pH 7.367 VBG pCO2 35.4 L VBG pO2 63.7 H VBG HCO3 19.9 L VBG Total CO2 21.0 L VBG O2 Saturation 91.2 H VBG Base Excess -4.7 L Sodium 125 L Potassium 4.9 H Chloride 92 L Carbon Dioxide 20 L Anion Gap 13.0 BUN 15 Creatinine 0.8 Estimated GFR (MDRD) 85 L Glucose 587 H* POC Whole Bld Glucose 351 H Calcium 9.7 Total Bilirubin 0.5 AST 12 ALT 10 Alkaline Phosphatase 83 Total Protein 6.9 Albumin 4.4 Globulin 2.5 Albumin/Globulin Ratio 1.8 Lipase < 10 L Urine Color Urine Clarity Urine pH Ur Specific [place] Urine Protein Urine Glucose (UA) Urine Ketones Urine Occult Blood Urine Nitrite Urine Bilirubin Urine Urobilinogen Ur Leukocyte Esterase Ur Microscopic Review Urine Culture Comments Urine HCG, Qual Serum Ketones 08/30/23 00:40 WBC RBC Hgb Hct MCV MCH MCHC RDW Plt Count MPV Neut # (Auto) Lymph # (Auto) Nash # (Auto) Eos # (Auto) Baso # (Auto) Absolute Nucleated RBC Nucleated RBC % VBG pH VBG pCO2 VBG pO2 VBG HCO3 VBG Total CO2 VBG O2 Saturation VBG Base Excess Sodium 134 L Potassium 3.7 Chloride 103 Carbon Dioxide 21 Anion Gap 10.0 BUN 14 Creatinine 0.7 Estimated GFR (MDRD) 100 Glucose 227 H POC Whole Bld Glucose Calcium 8.6 Total Bilirubin AST ALT Alkaline Phosphatase Total Protein Albumin Globulin Albumin/Globulin Ratio Lipase Urine Color Urine Clarity Urine pH Ur Specific [place] Urine Protein Urine Glucose (UA) Urine Ketones Urine Occult Blood Urine Nitrite Urine Bilirubin Urine Urobilinogen Ur Leukocyte Esterase Ur Microscopic Review Urine Culture Comments Urine HCG, Qual Serum Ketones - Rads (name of study) CTH Relevant Findings:: Prelim report reviewed, See rad report PD Medical Decision Making - ED course Complexity details: reviewed results, re-evaluated patient, considered differential, d/w patient, d/w family ED course: The description of events is suggestive of generalized/grand mal seizure. No obvious cause based on HPI, although benzodiazepine withdrawal would be potentially causative/contributory (patient says she is taking her alprazolam as prescribed, but says she takes 1 mg of alprazolam 4 times a day whereas according to [facility] records, it appears the prescription was intended to be taken 3 times a day). Although she says she had recently quit using fentanyl, opiate withdrawal would not cause seizures (as for being contributory, this also would be highly unlikely if she hasn't used fentanyl for over ten days as she reports). Patient's glucose is 587 on the ER abdominal panel. Hyponatremia is also noted (125) as well as hyperkalemia (4.9). Unremarkable EKG, normal CT head. Moderate serum ketones, but unremarkable VBG including pH of 7.367, pCO2 of 35. She is given 1 mg of lorazepam early in her stay for anxiety, and during the remainder of her ER stay she was given a total of 2 L of normal saline IV, 10 units of regular insulin followed by 8 units of regular insulin IV, and 4 mg IV Zofran. She did not have any seizures or seizure-like activity during ED stay. Her blood sugar improved from 587 to 227 on repeat ER abdominal panel prior to discharge. Additionally, on this repeat panel, her sodium improved to 134, potassium normalized (3.7). Results discussed with patient, return precautions are reviewed. She was given a second dose of 1 mg IV lorazepam prior to discharge for anxiety. The cause of her seizure-like activity is not apparent at this time. I advised her to follow-up with her PCP as soon as can be arranged for reevaluation and consideration of referral to neurology for EEG. Departure - Departure Disposition: 01 Home, Self Care Clinical Impression: Seizure, Hyperglycemia Condition: Good Instructions: ED Seizure New Onset Unk Cause Prescriptions: LORazepam [Ativan] See Rx Instructions .ROUTE .COMPLEX #6 tablet Comments: Contact your primary care provider when the office is next open to arrange for immediate follow-up/reevaluation appointment. You might need further evaluation such as an EEG and/or referral to a neurologist. Discharge Date/Time: 08/30/23 02:04
[2023-08-29 21:56] LABS: BASOPHILS # (AUTO) 0.1 10^3/uL (0.0-0.1); BASOPHILS % (AUTO) 0.5 %; EOSINOPHILS % (AUTO) 0.2 %; HCT - HEMATOCRIT 38.8 % (37.0-47.0); HGB - HEMOGLOBIN 13.5 g/dL (12.0-16.0); LYMPHOCYTES # (AUTO) 1.5 10^3/uL (1.5-3.5); LYMPHOCYTES % (AUTO) 11.8 %; MEAN CORPUSCULAR HEMOGLOBIN 29.9 pg (27.0-31.0); MEAN CORPUSCULAR HGB CONC 34.8 g/dL (32.0-36.0); MEAN PLATELET VOLUME 9.5 fL (7.9-10.8); MONOCYTES # (AUTO) 0.6 10^3/uL (0.0-1.0); MONOCYTES % (AUTO) 4.5 %; NEUTROPHILS # (AUTO) 10.7 10^3/uL (1.5-6.6); NEUTROPHILS % (AUTO) 82.5 %; PLT - PLATELET COUNT 385 10^3/uL (130-450); RED BLOOD COUNT 4.51 10^6/uL (4.20-5.40); RED CELL DISTRIBUTION WIDTH 11.7 % (12.0-15.0); WHITE BLOOD COUNT 12.9 x10^3/uL (4.8-10.8)
[2023-08-29 21:57] LABS: BILIRUBIN,URINE NEGATIVE (NEGATIVE); GLUCOSE, URINE (UA) >=1000 mg/dL (NEGATIVE); KETONES,URINE (UA) 15 mg/dL (NEGATIVE); LEUKOCYTE ESTERASE, URINE NEGATIVE (NEGATIVE); NITRITE,URINE NEGATIVE (NEGATIVE); OCCULT BLOOD,URINE NEGATIVE (NEGATIVE); PH,URINE 5.5 PH (5.0-7.5); PROTEIN,URINE TRACE mg/dL (NEGATIVE); UROBILINOGEN,URINE 0.2 (NORMAL) E.U./dL (NORMAL)
[2023-08-29 22:00] LABS: CLARITY,URINE CLEAR (CLEAR); HCG UR QUAL NEGATIVE
[2023-08-29] MEDS: SODIUM CHLORIDE 0.9% 1,000 ML IV STA ×2 (22:14→23:35)
[2023-08-29] MEDS: LORazepam 2 MG/ML VIAL IVP STA (22:14)
[2023-08-29] MEDS: ONDANSETRON 4 MG/2 ML VIAL IVP STA (22:18)
[2023-08-29 22:31] LABS: LIPASE < 10 U/L (11-82)
[2023-08-29 22:32] LABS: GLUCOSE 587 mg/dL (74-104)
[2023-08-29 22:33] LABS: ALBUMIN 4.4 g/dL (3.2-5.5); ALBUMIN/GLOBULIN RATIO 1.8 (1.0-2.2); ALKALINE PHOSPHATASE 83 IU/L (42-121); ALT ALANINE AMINOTRANSFERASE 10 IU/L (10-60); AST ASPARTATE AMINOTRANSFERASE 12 IU/L (10-42); BILIRUBIN,TOTAL 0.5 mg/dL (0.2-1.0); BUN - BLOOD UREA NITROGEN 15 mg/dL (6-20); CALCIUM 9.7 mg/dL (8.5-10.3); CARBON DIOXIDE - CO2 20 mmol/L (21-32); CHLORIDE 92 mmol/L (101-111); CREATININE 0.8 mg/dL (0.6-1.3); GFR - MDRD 85 (>89); POTASSIUM 4.9 mmol/L (3.5-4.5); SODIUM 125 mmol/L (135-145); TOTAL PROTEIN 6.9 g/dL (6.4-8.9)
[2023-08-29 22:42] LABS: VBG HCO3 19.9 mmol/L (23-28); VBG PCO2 35.4 mmHg (41-51); VBG PH 7.367 (7.31-7.41); VBG PO2 63.7 mmHg (25-47)
[2023-08-29 22:43] LABS: VBG BASE EXCESS -4.7 mmol/L (-2 - +2); VBG OXYGEN SATURATION 91.2 % (60-80)
[2023-08-29] MEDS: INSULIN REGULAR HUMAN 300 UNIT/3 ML VIAL IVP STA (22:46)
--- NOTE | 2023-08-29 23:15 | CT Report ---
PROCEDURE: Head WO INDICATIONS: seizure TECHNIQUE: Noncontrast 4.5 mm thick angled axial sections acquired from the foramen magnum to the vertex. For r adiation dose reduction, the following was used: automated exposure control, adjustment of mA and/or kV according to patient size. COMPARISON: None. FINDINGS: Image quality: Excellent. CSF spaces: Basal cisterns are patent. No extra-axial fluid collections. Ventricles are normal in size and shape. Brain: No midline shift. No intracranial masses or hemorrhage. Bejarano-white matter interface is norm al. Skull and face: Calvarium and visualized facial bones are intact, without suspicious lesions. Sinuses: Visualized sinuses and mastoids are clear. IMPRESSION: No acute intracranial pathology. Reviewed by: Mark Neil MD on 08/29/2023 11:14 PM PDT Approved by: Mark Neil MD on 08/29/2023 11:14 PM PDT Station ID: [id number]
[2023-08-30] MEDS: LORazepam 2 MG/ML VIAL IVP STA
[2023-08-30] MEDS: INSULIN REGULAR HUMAN 300 UNIT/3 ML VIAL IVP STA (00:01)
[2023-08-30 01:00] LABS: CALCIUM 8.6 mg/dL (8.5-10.3); CREATININE 0.7 mg/dL (0.6-1.3); POTASSIUM 3.7 mmol/L (3.5-4.5)
[2023-08-30 02:11] VITALS: BP 124/76; O2SAT 96
== END 2023-08-30 02:04 | disposition home or self-care (01) ==
LOC: EDUNIT# → ED 20:39
DX: R56.9 Unspecified convulsions (principal); E10.65 Type 1 diabetes mellitus with hyperglycemia; Z79.899 Other long term (current) drug therapy
CPT/HCPCS: 36415; 70450; 80048; 80053; 81003; 81025; 82009; 82803; 83690; 85025; 93005; 96374; 96375; 96376; 99284; 99285; J1815; J2060; 80143; 81001; 87086

== ENCOUNTER 2023-12-13 14:45 | Outpatient (CLI) | payer OTHER, MEDICAID | END 2023-12-13 23:59 | disposition critical access hospital (66) | LOC: EMS 14:45 | DX: R53.1 Weakness (principal); R07.89 Other chest pain; R11.2 Nausea with vomiting, unspecified; E11.65 Type 2 diabetes mellitus with hyperglycemia; Z79.4 Long term (current) use of insulin | CPT/HCPCS: A0425; A0427 ==

== ENCOUNTER 2023-12-13 15:53 | Observation (INO) | payer OTHER, MEDICAID ==
--- NOTE | 2023-12-13 15:58 | ED Physician Documentation ---
History of Present Illness - Stated complaint Stated Complaint: COVID +, N/V, GLUCOSE 528 - History obtained from History obtained from: Patient - Additonal information Additional information: 28-year-old type I diabetic. Her got sick and tested positive for COVID last week. She became sick about 4 days ago with shortness of breath, throat pain and congestion, fevers and shaking chills. She was so busy taking care of her that she neglected to take her 40 units of Lantus last night. Today she got weaker and threw up once. Prehospital her blood sugar was in the 500s. She has not tested positive for COVID but declined to test after discussion. We talked about Paxlovid and she declined that as well. Mostly she is worried about her cough and congestion. Says there is no possibility of . She is also had some substernal nonradiating chest pain since last night with this. PD PAST MEDICAL HISTORY - Past Medical History Endocrine/Autoimmune: Type 1 diabetes Psych: Depression, Anxiety Musculoskeletal: Fibromyalgia, Scoliosis - Past Surgical History Past Surgical History: No - Present Medications Home Medications: Ambulatory Orders Medication Instructions Recorded Confirmed Insulin Glargine [Lantus Solostar] 40 unit SQ HS 03/23/21 08/29/23 Insulin Lispro [Humalog Kwikpen See Rx Instructions .ROUTE .COMPLEX 03/23/21 08/29/23 U-100] Pyridoxine HCl (Vitamin B6) 25 mg PO DAILY 10/27/22 08/29/23 [Pyridoxine HCl] Sumatriptan Succinate [Imitrex] 100 mg PO DAILY PRN MDD 200 10/27/22 08/29/23 hydrOXYzine HCL [Hydroxyzine HCl] 25 mg PO DAILY PRN 10/27/22 08/29/23 traMADol [Ultram] 50 mg PO QID PRN 10/27/22 08/29/23 Ondansetron Odt [Zofran Odt] 4 mg TL Q6H PRN #10 tablet 01/25/23 08/29/23 Alprazolam [Xanax] 1 mg PO QID 07/27/23 08/29/23 Dextroamphetamine/Amphetamine 20 mg PO DAILY 07/27/23 08/29/23 [Adderall Xr 10 mg Capsule] Escitalopram [Lexapro] 10 mg PO DAILY 07/27/23 08/29/23 Oxycodone HCl [Roxybond] 5 mg PO Q6H PRN 07/27/23 08/29/23 [place] Wort 300 mg PO DAILY 07/27/23 08/29/23 cloNIDine [Catapres] 0.2 mg PO QPM 07/27/23 08/29/23 tiZANidine [Zanaflex] 4 mg PO TID PRN 07/27/23 08/29/23 LORazepam [Ativan] See Rx Instructions .ROUTE 08/30/23 .COMPLEX #6 tablet - Allergies Allergies/Adverse Reactions: Allergies Allergy/AdvReac Type Severity Reaction Status Date / Time No Known Drug Allergies Allergy Verified 12/13/23 16:01 - Social History Does the pt smoke?: No Smoking Status: Never smoker Does the pt drink ETOH?: No Does the pt have substance abuse?: Yes - Immunizations Immunizations are current?: No - POLST Patient has POLST: No PD ED PE NORMAL - Vitals Vital signs reviewed: Yes - General General: Alert and oriented X 3, No acute distress - Cardiac Cardiac: RRR, No murmur - Respiratory Respiratory: No respiratory distress, Clear bilaterally - Abdomen Abdomen: Non tender - Derm Derm: No rash - Neuro Neuro: Alert and oriented X 3 Results - Vitals Vitals: Vital Signs - 24 hr 12/13/23 15:55 Heart Rate 107 H Respiratory 20 Rate Blood Pressure 122/82 H O2 Saturation 99 Oxygen O2 Source Room air - EKG (time done) 1554 EKG releavant findings:: EKG personally interpreted by author of this note. Relevant findings are: Rate: Rate (enter#) (105) Rhythm: Sinus tachycardia [place]: Normal Intervals: Normal SC QRS: Normal Ischemia: Normal ST segments - Labs Labs: Laboratory Tests 12/13/23 12/13/23 12/13/23 16:01 16:04 16:04 WBC 8.4 RBC 4.49 Hgb 13.5 Hct 40.7 MCV 90.6 MCH 30.1 MCHC 33.2 RDW 12.0 Plt Count 335 MPV 9.4 Neut # (Auto) 6.8 H Lymph # (Auto) 1.0 L [place] # (Auto) 0.3 Eos # (Auto) 0.1 Baso # (Auto) 0.0 Absolute Nucleated RBC 0.00 Nucleated RBC % 0.0 VBG pH VBG pCO2 VBG pO2 VBG HCO3 VBG Total CO2 VBG O2 Saturation VBG Base Excess Sodium 126 L Potassium 4.3 Chloride 93 L Carbon Dioxide 9 L* Anion Gap 24.0 H BUN 26 H Creatinine 0.9 Estimated GFR (MDRD) 75 L Glucose 396 H Calcium 8.8 Magnesium 1.7 Total Bilirubin 0.4 AST 31 ALT 20 Alkaline Phosphatase 76 Troponin I High Sens Total Protein 7.4 Albumin 4.6 Globulin 2.8 Albumin/Globulin Ratio 1.6 Urine Color YELLOW Urine Clarity CLEAR Urine pH 5.5 Ur Specific [place] >=1.030 H Urine Protein NEGATIVE Urine Glucose (UA) 500 H Urine Ketones >=80 H Urine Occult Blood NEGATIVE Urine Nitrite NEGATIVE Urine Bilirubin NEGATIVE Urine Urobilinogen 0.2 (NORMAL) Ur Leukocyte Esterase NEGATIVE Ur Microscopic Review NOT INDICATED Urine Culture Comments NOT INDICATED Urine HCG, Qual NEGATIVE Serum Ketones LARGE H 12/13/23 12/13/23 16:04 16:04 WBC RBC Hgb Hct MCV MCH MCHC RDW Plt Count MPV Neut # (Auto) Lymph # (Auto) [place] # (Auto) Eos # (Auto) Baso # (Auto) Absolute Nucleated RBC Nucleated RBC % VBG pH 7.236 L VBG pCO2 21.1 L VBG pO2 76.1 H VBG HCO3 8.8 L VBG Total CO2 9.4 L VBG O2 Saturation 93.1 H VBG Base Excess -16.5 L Sodium Potassium Chloride Carbon Dioxide Anion Gap BUN Creatinine Estimated GFR (MDRD) Glucose Calcium Magnesium Total Bilirubin AST ALT Alkaline Phosphatase Troponin I High Sens < 2.3 L Total Protein Albumin Globulin Albumin/Globulin Ratio Urine Color Urine Clarity Urine pH Ur Specific [place] Urine Protein Urine Glucose (UA) Urine Ketones Urine Occult Blood Urine Nitrite Urine Bilirubin Urine Urobilinogen Ur Leukocyte Esterase Ur Microscopic Review Urine Culture Comments Urine HCG, Qual Serum Ketones - Rads (name of study) 1v cxr - NAD Relevant Findings:: Final report received, EMP independent interpretation of test PD Medical Decision Making - ED course ED course: 28-year-old woman with likely symptomatic COVID as her is ill and she has pretty typical symptoms for that now feeling worse with more shortness of breath and vomiting. She appears well with a mild resting tachycardia, that said her labs are consistent with diabetic ketoacidosis. Her CBC is normal, but her venous blood gas shows a metabolic acidosis with respiratory compensation, bicarb is 9 with probably pseudohyponatremia on her CMP and elevated blood sugar. Troponin testing was negative. Urine concentrated with glucose and ketones and she has large serum ketones as well. She had already received Lantus and a small dose of IV insulin and fluids at that point and was feeling s omewhat better. I presumed initially that she might be discharged until I saw her labs are more consistent with DKA and at that point a drip was started and I spoke with Dr. Quiroz for admission at 4:54 PM. - Critical Care Time(min): 34 Time Includes: Direct patient care, Review records, Reassess patient, Document care, Coordinate care, Medical consult Data interpretation: Labs, Pulse ox Procedures included in critical care time: Peripheral IV Procedures excluded from critical care time: EKG Departure - Departure Disposition: ED Place in Observation Clinical Impression: COVID-19 DKA (diabetic ketoacidosis) Qualifiers: Diabetes mellitus type: type 1 Diabetes mellitus complication detail: without coma Qualified Code(s): E10.10 - Type 1 diabetes mellitus with ketoacidosis without coma Condition: Serious Discharge Date/Time: 12/13/23 18:40
[2023-12-13] MEDS: SODIUM CHLORIDE 0.9% 1,000 ML IV STA (16:08)
[2023-12-13] MEDS: ALPRAZolam 0.25 MG TABLET PO STA (16:08)
[2023-12-13 16:10] LABS: VBG BASE EXCESS -16.5 mmol/L (-2 - +2); VBG HCO3 8.8 mmol/L (23-28); VBG OXYGEN SATURATION 93.1 % (60-80); VBG PCO2 21.1 mmHg (41-51); VBG PH 7.236 (7.31-7.41); VBG PO2 76.1 mmHg (25-47); VBG TOTAL CO2 9.4 mmol/L (24-29)
[2023-12-13 16:11] LABS: BASOPHILS % (AUTO) 0.4 %; EOSINOPHILS # (AUTO) 0.1 10^3/uL (0.0-0.7); EOSINOPHILS % (AUTO) 1.3 %; HCT - HEMATOCRIT 40.7 % (37.0-47.0); HGB - HEMOGLOBIN 13.5 g/dL (12.0-16.0); LYMPHOCYTES % (AUTO) 11.8 %; MEAN CORPUSCULAR HEMOGLOBIN 30.1 pg (27.0-31.0); MEAN CORPUSCULAR HGB CONC 33.2 g/dL (32.0-36.0); MEAN CORPUSCULAR VOLUME 90.6 fL (81.0-99.0); MEAN PLATELET VOLUME 9.4 fL (7.9-10.8); MONOCYTES # (AUTO) 0.3 10^3/uL (0.0-1.0); MONOCYTES % (AUTO) 3.6 %; NEUTROPHILS # (AUTO) 6.8 10^3/uL (1.5-6.6); NEUTROPHILS % (AUTO) 81.8 %; PLT - PLATELET COUNT 335 10^3/uL (130-450); RED BLOOD COUNT 4.49 10^6/uL (4.20-5.40); WHITE BLOOD COUNT 8.4 x10^3/uL (4.8-10.8)
[2023-12-13] MEDS: INSULIN REGULAR, HUMAN 300 UNIT/3 ML PEN IVP STA (16:11)
[2023-12-13 16:12] LABS: BILIRUBIN,URINE NEGATIVE (NEGATIVE); GLUCOSE, URINE (UA) 500 mg/dL (NEGATIVE); KETONES,URINE (UA) >=80 mg/dL (NEGATIVE); LEUKOCYTE ESTERASE, URINE NEGATIVE (NEGATIVE); NITRITE,URINE NEGATIVE (NEGATIVE); OCCULT BLOOD,URINE NEGATIVE (NEGATIVE); PH,URINE 5.5 PH (5.0-7.5); PROTEIN,URINE NEGATIVE (NEGATIVE); UROBILINOGEN,URINE 0.2 (NORMAL) E.U./dL (NORMAL)
[2023-12-13] MEDS: INSULIN GLARGINE-YFGN 300 UNIT/3 ML PEN SUBQ STA (16:14)
[2023-12-13 16:15] LABS: CLARITY,URINE CLEAR (CLEAR); HCG UR QUAL NEGATIVE
[2023-12-13 16:16] LABS: KETONES, SERUM (ACETEST) LARGE (NEGATIVE)
--- NOTE | 2023-12-13 16:19 | XRAY Report ---
PROCEDURE: Chest 1V INDICATIONS: cough TECHNIQUE: One view of the chest was acquired. COMPARISON: 07/26/2023 FINDINGS: Surgical changes and devices: None. Lungs and pleura: No pleural effusions or pneumothorax. Lungs are clear. Mediastinum: Mediastinal contours appear normal. Heart size is normal. Bones and chest wall: No suspicious bony lesions. Overlying soft tissues appear unremarkable. IMPRESSION: No acute cardiopulmonary process. Reviewed by: Jabier Godoy MD on 12/13/2023 4:17 PM PDT Approved by: Jabier Godoy MD on 12/13/2023 4:17 PM PDT Station ID: [id number]
[2023-12-13 16:24] LABS: MAGNESIUM 1.7 mg/dL (1.7-2.3)
[2023-12-13 16:48] LABS: ALBUMIN 4.6 g/dL (3.2-5.5); ALBUMIN/GLOBULIN RATIO 1.6 (1.0-2.2); ALKALINE PHOSPHATASE 76 IU/L (42-121); ALT ALANINE AMINOTRANSFERASE 20 IU/L (10-60); AST ASPARTATE AMINOTRANSFERASE 31 IU/L (10-42); BILIRUBIN,TOTAL 0.4 mg/dL (0.2-1.0); BUN - BLOOD UREA NITROGEN 26 mg/dL (6-20); CALCIUM 8.8 mg/dL (8.5-10.3); CARBON DIOXIDE - CO2 9 mmol/L (21-32); CHLORIDE 93 mmol/L (101-111); CREATININE 0.9 mg/dL (0.6-1.3); GFR - MDRD 75 (>89); GLUCOSE 396 mg/dL (74-104); POTASSIUM 4.3 mmol/L (3.5-4.5); SODIUM 126 mmol/L (135-145); TOTAL PROTEIN 7.4 g/dL (6.4-8.9)
[2023-12-13] MEDS: KETOROLAC 15 MG/ML VIAL IVP STA (17:06)
[2023-12-13] MEDS: INSULIN REGULAR IN 0.9 % NS 100 UNIT/100 ML BAG IV STA (17:06)
[2023-12-13] MEDS ORDERED: ACETAMINOPHEN 325 MG TABLET PO PRN (17:10)
[2023-12-13] MEDS ORDERED: ONDANSETRON 4 MG/2 ML VIAL IVP PRN (17:10)
[2023-12-13] MEDS ORDERED: KETOROLAC 15 MG/ML VIAL IVP PRN (17:18)
--- NOTE | 2023-12-13 17:18 | HISTORY & PHYSICAL EXAMINATION ---
Chief Complaint - Chief Complaint Chief Complaint: I feel bad History of Present Illness - Admitted From Admitted From:: [facility] - History Obtained From Records Reviewed: EMR History obtained from: Patient and EMR Exam Limitations: None - History of Present Illness HPI Comment/Other: Ruby Lacy is a 28-year-old with a history of type 1 diabetes, PTSD with anxiety, chronic pain due to fibromyalgia and scoliosis, GERD who presents with elevated glucose in the setting of a viral syndrome. The patient reports that approximately 1 week ago her became ill with a viral syndrome and tested positive for COVID. About 4 days ago the patient herself started to develop sore throat, rhinorrhea, nasal congestion, myalgia and chest congestion with some shortness of breath. She denies having any fevers but yesterday started to develop some nausea with a couple episodes of emesis that she is described as mainly acidic. She was busy helping to take care of of her last evening and forgot to take her evening 40 units of Lantus last night. Today she felt worse and had more nausea and vomiting, and checked her glucose level but was greater than 500. She came to the ER for further evaluation. Here she was noted to be tachycardic but normotensive and afebrile. Her CBC was unremarkable however her chemistry panel showed a sodium of 126, CO2 9, anion gap 24 and glucose of 396. A VBG was obtained that showed a pH of 7.23 and her serum ketones were significantly elevated. She was diagnosed with DKA and placed on an IV insulin drip. Of note prior to labs being obtained she had been given 40 units of Lantus, thus we will have to monitor her glucose closely. History - Past Medical History Respiratory: reports: None Neuro: reports: Other (Possible Seizure Disorder - presented to the ED in August 2023 with possible Grand Mal seizure[facility] was told to establish with Neurology for EEG (not obtained yet)) Endocrine/Autoimmune: reports: Type 1 diabetes GI: reports: [place] RAT: reports: None : reports: None HEENT: reports: None Psych: reports: Depression, Anxiety Musculoskeletal: reports: Fibromyalgia, Scoliosis, Chronic back pain Derm: reports: None MRSA Hx?: No - Family & Social History Family History: Other family: Hypertension Living Situation: With family - Substance History Use: Uses substance without health or social issues: Tobacco (Vape (e- cigarette)) - POLST Patient has POLST: No Meds/Allgy - Home Medications Home Medications: Ambulatory Orders Medication Instructions Recorded Confirmed Insulin Glargine [Lantus Solostar] 40 unit SQ HS 03/23/21 08/29/23 Insulin Lispro [Humalog Kwikpen See Rx Instructions .ROUTE .COMPLEX 03/23/21 08/29/23 U-100] Pyridoxine HCl (Vitamin B6) 25 mg PO DAILY 10/27/22 08/29/23 [Pyridoxine HCl] Sumatriptan Succinate [Imitrex] 100 mg PO DAILY PRN MDD 200 10/27/22 08/29/23 hydrOXYzine HCL [Hydroxyzine HCl] 25 mg PO DAILY PRN 10/27/22 08/29/23 traMADol [Ultram] 50 mg PO QID PRN 10/27/22 08/29/23 Ondansetron Odt [Zofran Odt] 4 mg TL Q6H PRN #10 tablet 01/25/23 08/29/23 Alprazolam [Xanax] 1 mg PO QID 07/27/23 08/29/23 Dextroamphetamine/Amphetamine 20 mg PO DAILY 07/27/23 08/29/23 [Adderall Xr 10 mg Capsule] Escitalopram [Lexapro] 10 mg PO DAILY 07/27/23 08/29/23 Oxycodone HCl [Roxybond] 5 mg PO Q6H PRN 07/27/23 08/29/23 [place] Wort 300 mg PO DAILY 07/27/23 08/29/23 cloNIDine [Catapres] 0.2 mg PO QPM 07/27/23 08/29/23 tiZANidine [Zanaflex] 4 mg PO TID PRN 07/27/23 08/29/23 LORazepam [Ativan] See Rx Instructions .ROUTE 08/30/23 .COMPLEX #6 tablet - Allergies Allergies/Adverse Reactions: Allergies Allergy/AdvReac Type Severity Reaction Status Date / Time No Known Drug Allergies Allergy Verified 12/13/23 16:01 Review of Systems - Constitutional Constitutional: reports: Fatigue, Chills, Weakness. denies: Fever - Eyes Eyes: denies: Blurred vision - Ears, Nose & Throat Ears, Nose & Throat: reports: Nasal congestion, Sore throat, Hoarseness - Cardiovascular Cariovascular: reports: Chest pain (Burning - acid reflux) - Respiratory Respiratory: reports: Cough. denies: Sputum production - Gastrointestinal Gastrointestinal: reports: Constipation, Nausea, Vomiting - Genitourinary Genitourinary: denies: Dysuria - Musculoskeletal Musculoskeletal: reports: Back pain, Muscle aches - Integumentary Integumentary: denies: Rash - Neurological Neurological: reports: General weakness. denies: Focal weakness - Psychiatric Psychiatric: reports: Depression, Anxiety - Endocrine Endocrine: reports: Polyuria - Hematologic/Lymphatic Hematologic/Lymphatic: denies: Bruising - All Other Systems All Other Systems: reports: Reviewed and negative Exam - Vital Signs Reviewed Vital Signs: Yes Vital Signs: Vital Signs x48h Pulse Resp BP Pulse Ox 12/13/23 15:55 107 H 20 122/82 H 99 - Physical Exam General Appearance: positive: Other (Alert, no active distress but appears fatigued. Nasal congestion is evident and occasional dry cough during interview.) Eyes Bilateral: positive: Normal inspection, PERRL, EOMI ENT: positive: ENT inspection nml, Pharynx nml, No signs of dehydration Neck: positive: Nml inspection, Thyroid nml, No JVD, Trachea midline Respiratory: positive: No respiratory distress, Breath sounds nml. negative: Wh eezes, Rales, Rhonchi Cardiovascular: positive: Regular rate & rhythm, No murmur, No gallop Peripheral Pulses: positive: 2+ Abdomen: positive: Non-tender, No organomegaly, Nml bowel sounds, No distention Back: positive: Nml inspection Skin: positive: Color nml, No rash, Warm, Dry Extremities: positive: Nml appearance. negative: No pedal edema Neurologic/Psychiatric: positive: Oriented x3, CN's nml (2-12), Motor nml, Sens ation nml, Mood/affect nml Sepsis Event Note (H) - Evaluation Current Stage of Sepsis: Ruled out Conclusion/Plan - Problem List (1) DKA, type 1, not at goal Conclusion/Plan: Patient developed DKA due to her current viral syndrome, poor p.o. intake and mi ssing her Lantus dose last evening. Her admission VBG showed a pH of 7.23 and her chemistry panel showed a bicarb of 9 with an anion gap of 24. -Will place in observation to the ICU and initiate the DKA protocol. -Continue IV insulin drip and IV fluids per protocol. -Follow labs every 4 hours. Replace electrolytes as indicated. -Hopefully can transition back to long-acting insulin later tonight or in the morning. (2) Acute viral syndrome Conclusion/Plan: Given her sick contact with her who is confirmed COVID-19 positive, she is likely COVID positive as well. -Placing contact/droplet precautions. -Check viral panel to confirm COVID status. -No need for any COVID specific therapies. (3) Hyponatremia Conclusion/Plan: This is mild in nature and partly corrects with her hyperglycemia, but it is also likely low due to her poor oral intake and vomiting. -Treating DKA as noted above and giving IV fluids with normal saline. -Following chemistry panels closely as noted above. (4) GERD (gastroesophageal reflux disease) Conclusion/Plan: She describes ongoing acid reflux symptoms giving her some chest pain/burning. -Placed on Protonix 40 mg daily and provide as needed Tums. (5) Constipation Conclusion/Plan: She describes intermittent constipation but recently she has been more constipated than typical. -Give IV fluids and put in as needed MiraLAX. (6) Depression with anxiety Conclusion/Plan: No acute issues at this time. -Resume home escitalopram 10 mg daily. (7) Scoliosis Conclusion/Plan: Reports ongoing chronic back pain due to her scoliosis. -Continue as needed oxycodone and tizanidine. - Lab Results Lab results reviewed: Yes Fish Bones: 12/13/23 16:04 12/13/23 16:04 Other Lab Results: Laboratory Results - last 24 hr 12/13/23 12/13/23 12/13/23 16:01 16:04 16:04 WBC 8.4 RBC 4.49 Hgb 13.5 Hct 40.7 MCV 90.6 MCH 30.1 MCHC 33.2 RDW 12.0 Plt Count 335 MPV 9.4 Neut # (Auto) 6.8 H Lymph # (Auto) 1.0 L [place] # (Auto) 0.3 Eos # (Auto) 0.1 Baso # (Auto) 0.0 Absolute Nucleated RBC 0.00 Nucleated RBC % 0.0 VBG pH VBG pCO2 VBG pO2 VBG HCO3 VBG Total CO2 VBG O2 Saturation VBG Base Excess Sodium 126 L Potassium 4.3 Chloride 93 L Carbon Dioxide 9 L* Anion Gap 24.0 H BUN 26 H Creatinine 0.9 Estimated GFR (MDRD) 75 L Glucose 396 H Calcium 8.8 Magnesium 1.7 Total Bilirubin 0.4 AST 31 ALT 20 Alkaline Phosphatase 76 Troponin I High Sens Total Protein 7.4 Albumin 4.6 Globulin 2.8 Albumin/Globulin Ratio 1.6 Urine Color YELLOW Urine Clarity CLEAR Urine pH 5.5 Ur Specific [place] >=1.030 H Urine Protein NEGATIVE Urine Glucose (UA) 500 H Urine Ketones >=80 H Urine Occult Blood NEGATIVE Urine Nitrite NEGATIVE Urine Bilirubin NEGATIVE Urine Urobilinogen 0.2 (NORMAL) Ur Leukocyte Esterase NEGATIVE Ur Microscopic Review NOT INDICATED Urine Culture Comments NOT INDICATED Urine HCG, Qual NEGATIVE Serum Ketones LARGE H 12/13/23 12/13/23 12/13/23 16:04 16:04 17:25 WBC RBC Hgb Hct MCV MCH MCHC RDW Plt Count MPV Neut # (Auto) Lymph # (Auto) [place] # (Auto) Eos # (Auto) Baso # (Auto) Absolute Nucleated RBC Nucleated RBC % VBG pH 7.236 L VBG pCO2 21.1 L VBG pO2 76.1 H VBG HCO3 8.8 L VBG Total CO2 9.4 L VBG O2 Saturation 93.1 H VBG Base Excess -16.5 L Sodium 129 L Potassium 4.1 Chloride 99 L Carbon Dioxide 11 L* Anion Gap 19.0 H BUN 25 H Creatinine 0.9 Estimated GFR (MDRD) 75 L Glucose 249 H Calcium 8.2 L Magnesium 1.7 Total Bilirubin AST ALT Alkaline Phosphatase Troponin I High Sens < 2.3 L Total Protein Albumin Globulin Albumin/Globulin Ratio Urine Color Urine Clarity Urine pH Ur Specific [place] Urine Protein Urine Glucose (UA) Urine Ketones Urine Occult Blood Urine Nitrite Urine Bilirubin Urine Urobilinogen Ur Leukocyte Esterase Ur Microscopic Review Urine Culture Comments Urine HCG, Qual Serum Ketones - Diagnostic Imaging Results Diagnostic Imaging Results Comments: Chest X-ray (12/13/23): No acute cardiopulmonary process. - EKG Results EKG Interpreted Independently: Yes EKG Findings: ECG: per my read - ST, HR 105, normal axis and intervals, left atrial enlargement, no pathologic Q-waves, no ischemic ST-TW changes.
[2023-12-13 17:43] LABS: MAGNESIUM 1.7 mg/dL (1.7-2.3)
[2023-12-13 17:47] LABS: CALCIUM 8.2 mg/dL (8.5-10.3); CREATININE 0.9 mg/dL (0.6-1.3); POTASSIUM 4.1 mmol/L (3.5-4.5)
[2023-12-13] MEDS ORDERED: polyethylene glycoL 3350 17 GM PACKET PO PRN (17:55)
[2023-12-13] MEDS ORDERED: INSULIN REGULAR IN 0.9 % NS 100 UNIT/100 ML BAG IV SCH (18:00)
[2023-12-13] MEDS ORDERED: CALCIUM CARBONATE CHEW 500 MG TABLET PO PRN (18:02)
[2023-12-13 18:17] LABS: B. PARAPERTUSSIS- RESP PCR PAN NOT DETECTED; B. PERTUSSIS- RESP PCR PANEL NOT DETECTED; C. PNEUMONIAE- RESP PCR PANEL NOT DETECTED; CORONAVIRUS 229E-RESP PCR NOT DETECTED; CORONAVIRUS HKU1-RESP PCR NOT DETECTED; CORONAVIRUS NL63-RESP PCR NOT DETECTED; CORONAVIRUS OC43-RESP PCR NOT DETECTED; HUMAN METAPNEUMOVIRUS NOT DETECTED; INFLUENZA A- RESP PCR PANEL NOT DETECTED; INFLUENZA B - RESP PCR PANEL NOT DETECTED; M. PNEUMONIAE- RESP PCR PANEL NOT DETECTED; PARAINFLUENZA VIRUS 1 NOT DETECTED; PARAINFLUENZA VIRUS 2 NOT DETECTED; PARAINFLUENZA VIRUS 3 NOT DETECTED; PARAINFLUENZA VIRUS 4 NOT DETECTED; RHINOVIRUS/ENTEROVIRUS NOT DETECTED; RSV- RESP PCR PANEL NOT DETECTED
[2023-12-13 18:18] LABS: SARS-CoV-2 -RESP PCR PANEL DETECTED
[2023-12-13] MEDS: DEXTROSE-SOD CHLOR W/20 MEQ K 1,000 ML IV SCH (19:15)
[2023-12-13] MEDS: PANTOPRAZOLE 40 MG TABLET PO SCH (20:12)
[2023-12-13] MEDS: oxyCODONE 5 MG TABLET PO PRN (20:12)
[2023-12-13 20:56] LABS: CALCIUM 8.5 mg/dL (8.5-10.3); CREATININE 0.9 mg/dL (0.6-1.3); MAGNESIUM 1.7 mg/dL (1.7-2.3)
[2023-12-13] MEDS: cloNIDine 0.1 MG TABLET PO SCH (21:09)
[2023-12-13] MEDS: MAGNESIUM OXIDE 400 MG TABLET PO ONE (21:16)
[2023-12-14] MEDS: ONDANSETRON ODT 4 MG TABLET TL PRN (00:19)
[2023-12-14] MEDS: SODIUM CHLORIDE FLUSH 0.9% 10 ML SYRINGE IVP SCH (00:20)
[2023-12-14] MEDS: NS W/20 MEQ KCL 1,000 ML IV SCH (00:34)
[2023-12-14 02:03] LABS: MAGNESIUM 1.8 mg/dL (1.7-2.3)
[2023-12-14 02:09] LABS: CALCIUM 8.5 mg/dL (8.5-10.3); CREATININE 0.7 mg/dL (0.6-1.3); POTASSIUM 3.6 mmol/L (3.5-4.5)
[2023-12-14] MEDS: POTASSIUM CHLORIDE 20 MEQ TABLET PO ONE ×2 (03:16→06:18)
[2023-12-14] MEDS: MAGNESIUM OXIDE 400 MG TABLET PO ONE (03:16)
[2023-12-14] MEDS: ALPRAZolam 0.25 MG TABLET PO PRN (03:17)
[2023-12-14] MEDS: SODIUM CHLORIDE FLUSH 0.9% 10 ML SYRINGE IVP PRN (03:54)
[2023-12-14] MEDS: INSULIN REGULAR, HUMAN 300 UNIT/3 ML PEN SUBQ SCH (03:58)
[2023-12-14] MEDS: tiZANidine 4 MG TABLET PO PRN (04:13)
[2023-12-14 05:11] LABS: BASOPHILS % (AUTO) 0.2 %; EOSINOPHILS # (AUTO) 0.1 10^3/uL (0.0-0.7); EOSINOPHILS % (AUTO) 0.9 %; HCT - HEMATOCRIT 35.2 % (37.0-47.0); HGB - HEMOGLOBIN 11.6 g/dL (12.0-16.0); LYMPHOCYTES # (AUTO) 2.2 10^3/uL (1.5-3.5); LYMPHOCYTES % (AUTO) 41.4 %; MEAN CORPUSCULAR HEMOGLOBIN 29.1 pg (27.0-31.0); MEAN CORPUSCULAR VOLUME 88.4 fL (81.0-99.0); MEAN PLATELET VOLUME 9.1 fL (7.9-10.8); MONOCYTES # (AUTO) 0.7 10^3/uL (0.0-1.0); MONOCYTES % (AUTO) 12.3 %; NEUTROPHILS # (AUTO) 2.4 10^3/uL (1.5-6.6); NEUTROPHILS % (AUTO) 44.6 %; PLT - PLATELET COUNT 315 10^3/uL (130-450); RED BLOOD COUNT 3.98 10^6/uL (4.20-5.40); RED CELL DISTRIBUTION WIDTH 12.3 % (12.0-15.0); WHITE BLOOD COUNT 5.3 x10^3/uL (4.8-10.8)
[2023-12-14 05:15] LABS: CALCIUM, IONIZED 1.15 mmol/L (1.15-1.33); VBG PH 7.345 (7.31-7.41)
[2023-12-14 05:31] LABS: CALCIUM 8.3 mg/dL (8.5-10.3); CREATININE 0.7 mg/dL (0.6-1.3); MAGNESIUM 1.9 mg/dL (1.7-2.3); POTASSIUM 3.7 mmol/L (3.5-4.5)
[2023-12-14] MEDS: NEUTRA-PHOS 250 MG TABLET PO SCH (06:18)
[2023-12-14] MEDS: ESCITALOPRAM 10 MG TABLET PO SCH (08:23)
[2023-12-14 10:04] LABS: ESTIMATED AVERAGE GLUCOSE 212 mg/dL (70-100)
[2023-12-14 12:14] VITALS: BP 134/90; O2SAT 98
[2023-12-14] MEDS: BENZOCAINE/MENTHOL LOZENGE MM PRN (12:25)
--- NOTE | 2023-12-14 12:46 | Discharge Plan ---
Discharge Plan Problem Reviewed?: Yes Disposition: Home, Self Care Condition: Good Diet: Diabetic Activity Restrictions: Activity as Tolerated Instruction Topics: DKA Prevent Ch Health Concerns: Please stay vigilant of your insulin dosage and timing. Follow-Up Care: [facility] - Diabetes Ed No Smoking: If you smoke, Please STOP! Call for help.
--- NOTE | 2023-12-14 12:52 | DISCHARGE SUMMARY ---
"Discharge Summary Admit Date: 12/13/23 Discharge Date: 12/14/23 Discharging Provider: dr moore Primary Care Provider: axel king Code Status: Attempt Resuscitation Condition at Discharge: Good Discharge Disposition: 01 Home, Self Care - DIAGNOSES Admission Diagnoses: DKA Acute viral syndrome Hyponatremia GERD Depression with anxiety Discharge Diagnoses with Status of Each Condition: (1) DKA, type 1, not at goal Conclusion/Plan: Patient developed DKA due to her current viral syndrome, poor p.o. intake and missing her Lantus dose last evening. Her admission VBG showed a pH of 7.23 and her chemistry panel showed a bicarb of 9 with an anion gap of 24. -Will place in observation to the ICU and initiate the DKA protocol. -Continue IV insulin drip and IV fluids per protocol. -Follow labs every 4 hours. Replace electrolytes as indicated. -Hopefully can transition back to long-acting insulin later tonight or in the morning. 12/14/2023: DKA resolved (2) Acute viral syndrome Conclusion/Plan: Given her sick contact with her who is confirmed COVID-19 positive, she is likely COVID positive as well. -Placing contact/droplet precautions. -Check viral panel to confirm COVID status. -No need for any COVID specific therapies. (3) Hyponatremia Conclusion/Plan: This is mild in nature and partly corrects with her hyperglycemia, but it is also likely low due to her poor oral intake and vomiting. -Treating DKA as noted above and giving IV fluids with normal saline. -Following chemistry panels closely as noted above. 12/14/2023: Hyponatremia resolved current sodium 137 (4) GERD (gastroesophageal reflux disease) Conclusion/Plan: She describes ongoing acid reflux symptoms giving her some chest pain/burning. -Placed on Protonix 40 mg daily and provide as needed Tums. Continue home dose meds (5) Constipation Conclusion/Plan: She describes intermittent constipation but recently she has been more constipated than typical. -Give IV fluids and put in as needed MiraLAX. Continue with adequate water intake (6) Depression with anxiety Conclusion/Plan: No acute issues at this time. -Resume home escitalopram 10 mg daily. (7) Scoliosis Conclusion/Plan: Reports ongoing chronic back pain due to her scoliosis. -Continue as needed oxycodone and tizanidine. - HPI History of Present Illness: Ruby Lacy is a 28-year-old with a history of type 1 diabetes, PTSD with anxiety, chronic pain due to fibromyalgia and scoliosis, GERD who presents with elevated glucose in the setting of a viral syndrome. The patient reports that approximately 1 week ago her became ill with a viral syndrome and tested positive for COVID. About 4 days ago the patient herself started to develop sore throat, rhinorrhea, nasal congestion, myalgia and chest congestion with some shortness of breath. She denies having any fevers but yesterday started to develop some nausea with a couple episodes of emesis that she is described as mainly acidic. She was busy helping to take care of of her last evening and forgot to take her evening 40 units of Lantus last night. Today she felt worse and had more nausea and vomiting, and checked her glucose level but was greater than 500. She came to the ER for further evaluation. Here she was noted to be tachycardic but normotensive and afebrile. Her CBC was unremarkable however her chemistry panel showed a sodium of 126, CO2 9, anion gap 24 and glucose of 396. A VBG was obtained that showed a pH of 7.23 and her serum ketones were significantly elevated. She was diagnosed with DKA and placed on an IV insulin drip. Of note prior to labs being obtained she had been given 40 units of Lantus, thus we will have to monitor her glucose closely. - CONSULTS | PROCEDURES Procedures: Chest x-ray with no acute infiltrate or effusion - HOSPITAL COURSE Hospital Course: This is a 22-year-old female with history of type 1 diabetes mellitus who missed her Lantus dose presented to [facility] with viral-like symptoms where patient was found to have DKA with anion gap metabolic acidosis however patient was started on IV fluids and IV insulin currently anion gap is closed and DKA is resolved patient awake oriented is cleared for discharge with hyponatremia resolved. - ALLERGIES Allergies/Adverse Reactions: Allergies Allergy/AdvReac Type Severity Reaction Status Date / Time No Known Drug Allergies Allergy Verified 12/13/23 16:01 - MEDICATIONS Home Medications: Ambulatory Orders Medication Instructions Recorded Confirmed Insulin Glargine [Lantus Solostar] 40 unit SQ HS 03/23/21 12/14/23 Insulin Lispro [Humalog Kwikpen See Rx Instructions .ROUTE .COMPLEX 03/23/21 12/14/23 U-100] Pyridoxine HCl (Vitamin B6) 25 mg PO DAILY 10/27/22 12/14/23 [Pyridoxine HCl] Sumatriptan Succinate [Imitrex] 100 mg PO DAILY PRN MDD 200 10/27/22 12/14/23 hydrOXYzine HCL [Hydroxyzine HCl] 25 mg PO DAILY PRN 10/27/22 12/14/23 Ondansetron Odt [Zofran Odt] 4 mg TL Q6H PRN #10 tablet 01/25/23 12/14/23 Alprazolam [Xanax] 1 mg PO QID 07/27/23 12/14/23 Dextroamphetamine/Amphetamine 20 mg PO DAILY 07/27/23 12/14/23 [Adderall Xr 10 mg Capsule] Oxycodone HCl [Roxybond] 5 mg PO Q6H PRN 07/27/23 12/14/23 Nora's Wort 300 mg PO DAILY 07/27/23 12/14/23 cloNIDine [Catapres] 0.2 mg PO QPM 07/27/23 12/14/23 tiZANidine [Zanaflex] 4 mg PO TID PRN 07/27/23 12/14/23 ALPRAZolam [Xanax] 1 mg PO Q6H PRN tab 12/14/23 Acetaminophen [Tylenol] 650 mg PO Q4HR PRN tab 12/14/23 Calcium Carbonate [Tums (Calcium 500 mg PO Q8H PRN tab 12/14/23 Carbonate 500mg)] Escitalopram [Lexapro] 10 mg PO DAILY tab 12/14/23 Insulin Regular, Human [Novolin R 5 unit SUBQ ACHS ml 12/14/23 Flexpen] cloNIDine [Catapres] 0.1 mg PO QPM tab 12/14/23 oxyCODONE [Roxicodone] 5 mg PO Q4H PRN tab 12/14/23 tiZANidine [Zanaflex] 4 mg PO TID PRN tab 12/14/23 - PHYSICAL EXAM AT DISCHARGE General Appearance: positive: No acute distress Eyes Bilateral: positive: EOMI ENT: positive: Pharynx nml Neck: positive: Trachea midline Respiratory: positive: No respiratory distress, Breath sounds nml Cardiovascular: positive: Regular rate & rhythm, No murmur Abdomen: positive: Non-tender, Nml bowel sounds, No distention. negative: Rebound Skin: positive: Warm Extremities: positive: Nml appearance, No pedal edema Neurologic/Psychiatric: positive: Oriented x3, Motor nml - LABS Result Diagrams: 12/14/23 04:50 12/14/23 04:50 - SEPSIS Current Stage of Sepsis: Ruled out - FOLLOW UP Follow Up: Follow-up with endocrinology - TIME SPENT Time Spent in Discharge (Minutes): 38"
== END 2023-12-14 13:33 | disposition home or self-care (01) ==
LOC: EDUNIT# → EDSEX → ED 15:53 → ICU 17:07
PROVIDERS: ADMIT Hospitalist; ATTEND Hospitalist
DX: E10.10 Type 1 diabetes mellitus with ketoacidosis without coma (principal); U07.1 COVID-19; E87.1 Hypo-osmolality and hyponatremia; K21.9 Gastro-esophageal reflux disease without esophagitis; T38.3X6A Underdosing of insulin and oral hypoglycemic [antidiabetic] drugs, initial encounter; K59.00 Constipation, unspecified; M41.9 Scoliosis, unspecified; G89.29 Other chronic pain; F43.10 Post-traumatic stress disorder, unspecified; M79.7 Fibromyalgia; F41.9 Anxiety disorder, unspecified; F32.A Depression, unspecified; Z32.02 Encounter for pregnancy test, result negative; Z20.818 Contact with and (suspected) exposure to other bacterial communicable diseases; Z20.828 Contact with and (suspected) exposure to other viral communicable diseases; Z79.4 Long term (current) use of insulin; Z79.899 Other long term (current) drug therapy; Z91.138 Patient's unintentional underdosing of medication regimen for other reason
CPT/HCPCS: 36415; 71045; 80048; 80053; 81003; 81025; 82009; 82330; 82803; 82947; 83036; 83735; 84100; 84484; 85025; 87150; 87633; 93005; 96361; 96374; 99291; A9270; G0378; J1815; Q0162; 81001; 87086

== ENCOUNTER 2023-12-28 08:00 | Outpatient (CLI) | payer OTHER, MEDICAID | END 2023-12-28 08:01 | disposition home or self-care (01) | LOC: LAB 08:00 | PROVIDERS: ATTEND Physician Assistant Medical | DX: N30.00 Acute cystitis without hematuria (principal) | CPT/HCPCS: 87086 ==